=== PATIENT | male | born 1970 | race Caucasian/White ===

== ENCOUNTER 2021-02-13 07:15 | Outpatient (REF) | payer BC, SELFPAY ==
[2021-02-13 08:46] LABS: MANUAL DIFF FLAG NO
[2021-02-13 08:59] LABS: Basophils Percent Auto 0.7 % (0-2); Eosinophils Absolute Auto 0.2 X10*3/uL (0.0-0.4); Hematocrit 47.1 % (42-52); Hemoglobin 16.2 g/dl (14.0-18.0); Imm Gran Abs Auto 0.01 X10*3/uL (0.00-0.03); Imm Gran Pct Auto 0.2 % (0.0-0.4); Lymphocytes Absolute Auto 1.7 X10*3/uL (1.2-4.9); Lymphocytes Percent Auto 39.1 % (20-40); Mean Corpuscular HGB Conc 34.4 g/dl (31.0-36.0); Mean Corpuscular Hemoglobin 30.7 pg (27.0-33.0); Mean Corpuscular Volume 89.4 fL (80-98); Monocytes Absolute Auto 0.4 X10*3/uL (0.1-1.2); Monocytes Percent Auto 10.3 % (2-11); Neutrophils Percent Auto 45.7 % (45-73); Platelet Count 268 X10*3/uL (160-400); Red Blood Count 5.27 X10*6/uL (4.60-5.80); White Blood Count 4.3 X10*3/uL (4.8-10.8)
[2021-02-13 09:35] LABS: Creatinine Urine 205.16 mg/dL
[2021-02-13 09:43] LABS: Alanine Aminotransferase 31 U/L (0-40); Albumin Level 4.2 g/dL (3.5-5.0); Alkaline Phosphatase 79 U/L (39-117); Anion Gap 12 (12-20); Aspartate Amino Transferase 25 U/L (5-37); Bilirubin Total 0.7 mg/dL (0.0-1.0); Blood Urea Nitrogen 17 mg/dL (9-16); Calcium 9.4 mg/dL (8.4-10.2); Carbon Dioxide 26 mmol/L (22-29); Chloride 105 mmol/L (96-108); Cholesterol 199 mg/dL; Estimated Glomerular Filt Rate > 60; Glucose Fasting 96 mg/dL (60-99); HDL Cholesterol 90 mg/dL; LDL Cholesterol Calculated 99 mg/dl; Sodium 139 mmol/L (135-145); Total Protein 6.8 g/dL (6.5-8.0); Triglycerides 52 mg/dL
[2021-02-13 10:03] LABS: Estimated Average Glucose 223 mg/dL; Hemoglobin A1c % 9.4 %
== END 2021-02-13 07:16 | disposition home or self-care (01) ==
LOC: HO.LAB 07:15
PROVIDERS: PCP Internal Medicine Medical Oncology; Visit Provider Internal Medicine Medical Oncology
DX: Z00.00 Encounter for general adult medical examination without abnormal findings (principal); E11.9 Type 2 diabetes mellitus without complications
CPT/HCPCS: 36415; 80053; 80061; 82043; 83036; 85025

== ENCOUNTER 2021-07-15 08:14 | Day surgery (SDC) | payer BC, SELFPAY ==
[2021-07-09 11:29] VITALS: BMI 25.0
--- NOTE | 2021-07-12 09:54 | HO.ANESPROP2 ---
Documented by User: Kallie Aly NP 07/12/21 09:54 HPI - Anesthesia Eval Consult details Narrative: 51yo M for Colonoscopy [facility] Past Medical History Medical History (Updated 07/09/21 @ 11:29 by Deidra Stoddard RN) Arthritis COVID-19 vaccine series completed Diabetes Surgical History Surgical History (Updated 07/09/21 @ 11:20 by Deidra Stoddard RN) No pertinent past surgical history Social History Social History Are you a primary acute care nursing assistant to a significant other at home: No Do you presently have visiting nurse or other home services: No Patient Tobacco Use Status: Never used Tobacco Use of substances other than those prescribed or required for medical reasons: No Have you been hit, kicked, punched, or otherwise hurt by someone within the past year? If so, by whom?: No Are you DNR?: No Advance Directives: No Advance Directives Information Provided: Yes Advance Directives on File: No Recently lost weight without trying: No Eating poorly because of decreased appetite: No Nutrition Risks: No Nutritional Risk Poor oral hygiene: No Meds Allergies Allergy/AdvReac Type Severity Reaction Status Date / Time No Known Allergies Allergy Unverified 03/08/20 14:51 Home Medications Medication Instructions Recorded Confirmed Last Taken Type atorvastatin 10 mg tablet 1 tab PO DAILY 07/09/21 07/09/21 Unknown History insulin glargine 100 unit/mL (3 35 unit SUBCUT DAILY 07/09/21 07/09/21 Unknown History mL) subcutaneous pen (Lantus Solostar U-100 Insulin) Exam Exam Date and Time: July 12, 2021 0954 Height,Weight and Vital Signs: Height 6 ft 1 in Weight 86.183 kg Pertinent Lab Results Pertinent Lab Results: Laboratory Tests 02/13/21 02/13/21 07:30 07:30 WBC 4.3 L Hgb 16.2 Hct 47.1 Plt Count 268 Sodium 139 Potassium 4.0 Chloride 105 Carbon Dioxide 26 BUN 17 H Creatinine 0.82 Assessment and Plan Assessment Anesthesia Assessment: Chart Reviewed Documented by User: Camilo Johnson MD 07/15/21 08:44 PMF Past Medical History Medical History (Updated 07/09/21 @ 11:29 by Deidra Stoddard RN) Arthritis COVID-19 vaccine series completed Diabetes Family History Family history of problems with anesthesia: No Surgical History Surgical History (Updated 07/09/21 @ 11:20 by Deidra Stoddard RN) No pertinent past surgical history History of Problems with Anesthesia: No Social History Social History Are you a primary acute care nursing assistant to a significant other at home: No Do you presently have visiting nurse or other home services: No Patient Tobacco Use Status: Never used Tobacco Use of substances other than those prescribed or required for medical reasons: No Have you been hit, kicked, punched, or otherwise hurt by someone within the past year? If so, by whom?: No Are you DNR?: No Advance Directives: No Advance Directives Information Provided: Yes Advance Directives on File: No Recently lost weight without trying: No Eating poorly because of decreased appetite: No Nutrition Risks: No Nutritional Risk Poor oral hygiene: No Meds Allergies Allergy/AdvReac Type Severity Reaction Status Date / Time No Known Allergies Allergy Unverified 03/08/20 14:51 Home Medications Medication Instructions Recorded Confirmed Last Taken Type atorvastatin 10 mg tablet 1 tab PO DAILY 07/09/21 07/09/21 Unknown History insulin glargine 100 unit/mL (3 35 unit SUBCUT DAILY 07/09/21 07/09/21 Unknown History mL) subcutaneous pen (Lantus Solostar U-100 Insulin) Assessment and Plan Assessment Anesthesia Assessment: Anesthesia Plan Discussed Final Anesthetic Review Family History of Problems with Anesthesia: No History of Problems with Anesthesia: No NPO: Yes ASA Class: II Final Preanesthetic Review: No Changes in Pt Med Stat, Meds/Allgs Chart Reviewed, Consent Obtained/Reviewed and Anes Risks/Benef Reviewed Patient Risk: Intermediate Procedure Risk: Low Anesthetic Plan Anesthetic Plan: MAC: Disposition: Standard PACU
[2021-07-15 09:07] VITALS: BP 155/96; PULSE 89; RESP 16; TEMP 36.2; O2SAT 98
[2021-07-15] MEDS: Lactated Ringers 1,000 ML 100 ML IVCONT (09:14)
[2021-07-15 09:21] LABS: Glucose, Whole Blood 110 mg/dL (60-115)
[2021-07-15 10:36] VITALS: BP 119/68; PULSE 95; RESP 16; TEMP 36.2; O2SAT 94
--- NOTE | 2021-07-15 10:39 | P.BOP_ITS ---
Brief Operative Note Date of Service: 07/15/21 Pre-op diagnosis: Screening Post-op diagnosis: other (Colon polyp) Procedure: Colonoscopy to the cecum and TI with cold snare polypectomy Surgeon: Gary Campos Anesthesia: MAC Was an [employer] Stripper used for this Procedure?: No Estimated blood loss (mL): 2.0 Pathology: other (A. Transverse colon polyp) Condition: stable Disposition: PACU
--- NOTE | 2021-07-15 10:41 | PC.NURSE ---
dr mendoza at bedside
[2021-07-15 10:51] VITALS: BP 115/78; PULSE 90; RESP 18; TEMP 36.1; O2SAT 97
--- NOTE | 2021-07-15 11:26 | OP_ITS ---
SURGEON: aGry Campos MD INDICATIONS: The patient presents for evaluation of colorectal cancer screening. Full consent obtained from him for this, including risks of bleeding and perforation. PREOPERATIVE DIAGNOSIS: Colorectal cancer screening. POSTOPERATIVE DIAGNOSIS: PROCEDURE PERFORMED: ESTIMATED BLOOD LOSS: COMPLICATIONS: ANESTHESIA: Monitored anesthesia care. ASSISTANTS: SPECIMENS: PROCEDURE: Colonoscopy to cecum, terminal ileum with cold snare polypectomy. POSTOPERATIVE DIAGNOSES: Colorectal cancer screening, colon polyp, internal hemorrhoids. DESCRIPTION OF PROCEDURE: The patient was placed in the left lateral decubitus position. The digital rectal exam revealed no abnormalities. The Olympus video pediatric colonoscope was entered into the rectum and advanced easily to the cecum. Once in the cecum, I did identify normal-appearing cecal pouch with appendiceal orifice and a normal-appearing ileocecal valve. The terminal ileum was cannulated and appeared normal. Scope was withdrawn back in the colon. The entire cecum and ileocecal valve appeared normal. The scope was slowly withdrawn assessing all mucosal surfaces carefully. Preparation was excellent. In the transverse colon, there was a flat approximately 5 or 6 mm polyp, which was removed with a cold snare polypectomy and recovered by suction. The polypectomy site appeared clean, without any sign of residual polyp nor any significant bleeding. I did not visualize any other polyps, colitis, nor angiodysplasia. In the rectum, scope was retroflexed visualizing small internal hemorrhoids, but no other pathology. The rectal mucosa appeared normal. Scope was straightened and withdrawn from the patient. He tolerated the procedure well and was returned to the recovery area in stable condition. IMPRESSION: 1. Small colon polyp, status post removal with cold snare polypectomy. 2. Internal hemorrhoids. PLAN: The results of the pathology will be checked. If this is a tubular adenoma, I would recommend a followup colonoscopy in 5 years. If it is only hyperplastic, I would recommend a followup colonoscopy in 10 years. MD BAYLEE Baptiste/WINNIEL / [id number]
== END 2021-07-15 11:24 | disposition home or self-care (01) ==
PROVIDERS: PCP Internal Medicine Medical Oncology; Visit Provider Internal Medicine
PROC: 0DJD8ZZ Inspection of Lower Intestinal Tract, Via Natural or Artificial Opening Endoscopic (ICD-10-PCS; CPT 45378; principal; 2021-07-15 09:20)
DX: Z12.11 Encounter for screening for malignant neoplasm of colon (principal); D12.3 Benign neoplasm of transverse colon; K64.8 Other hemorrhoids; E11.9 Type 2 diabetes mellitus without complications; Z79.4 Long term (current) use of insulin
CPT/HCPCS: 45385; 82947; 88305; J2250

== ENCOUNTER 2023-02-16 10:34 | Outpatient (REF) | payer BC, SELFPAY ==
--- NOTE | ~2023-02-16 | XR_ITS ---
EXAMINATION: XR HAND AND WRIST, BILATERAL CLINICAL INFORMATION: Bilateral wrist pain. COMPARISON: None TECHNIQUE: 3 views each of bilateral hands and wrists. FINDINGS: LEFT HAND AND WRIST: Marked degenerative changes 1st carpometacarpal and STT joints. Subluxation of the 1st metacarpal relative to the scaphoid. Scattered erosive changes in the hand, particularly notable at the distal aspects of the middle phalanges. Scattered erosive/changes noted in the wrists. Mild degenerative changes with hypertrophic change particularly at the 3rd digit PIP and DIP joints. RIGHT HAND AND WRIST: Mwjacsie-il-yxfhak degenerative changes 1st carpometacarpal and STT joints. Subluxation of the1st metacarpal relative to the scaphoid. Mild degenerative changes with hypertrophic change particularly at the 3rd digit PIP and DIP joints. Scattered erosive changes in the hand, particularly notable at the distal aspects of the middle phalanges. Scattered erosive/changes noted in the wrists. XR/XR hand wrist LT IMPRESSION: LEFT HAND: Advanced degenerative changes in the bilateral 1st carpometacarpal and STT joints. BILATERAL HANDS AND WRISTS: 2. Scattered erosive changes in the bilateral hands, particularly notable at the distal aspects of the middle phalanges. Scattered erosive/changes noted in the bilateral wrists.
--- NOTE | ~2023-02-16 | XR_ITS ---
EXAMINATION: XR HAND AND WRIST, BILATERAL CLINICAL INFORMATION: Bilateral wrist pain. COMPARISON: None TECHNIQUE: 3 views each of bilateral hands and wrists. FINDINGS: LEFT HAND AND WRIST: Marked degenerative changes 1st carpometacarpal and STT joints. Subluxation of the 1st metacarpal relative to the scaphoid. Scattered erosive changes in the hand, particularly notable at the distal aspects of the middle phalanges. Scattered erosive/changes noted in the wrists. Mild degenerative changes with hypertrophic change particularly at the 3rd digit PIP and DIP joints. RIGHT HAND AND WRIST: Qrrzuhkn-bv-[id number] degenerative changes 1st carpometacarpal and STT joints. Subluxation of the1st metacarpal relative to the scaphoid. Mild degenerative changes with hypertrophic change particularly at the 3rd digit PIP and DIP joints. Scattered erosive changes in the hand, particularly notable at the distal aspects of the middle phalanges. Scattered erosive/changes noted in the wrists. XR/XR hand wrist RT IMPRESSION: LEFT HAND: Advanced degenerative changes in the bilateral 1st carpometacarpal and STT joints. BILATERAL HANDS AND WRISTS: 2. Scattered erosive changes in the bilateral hands, particularly notable at the distal aspects of the middle phalanges. Scattered erosive/changes noted in the bilateral wrists.
== END 2023-02-16 10:35 | disposition home or self-care (01) ==
LOC: HO.XRAY 10:34
PROVIDERS: PCP Internal Medicine Medical Oncology; Visit Provider Internal Medicine Medical Oncology
DX: M25.532 Pain in left wrist (principal); M25.531 Pain in right wrist; M79.641 Pain in right hand; M79.642 Pain in left hand
CPT/HCPCS: 73110; 73130

== ENCOUNTER 2023-03-04 15:30 | Outpatient (AMB) | payer BC, SELFPAY ==
--- NOTE | 2023-03-04 15:33 | MHC.OFFVIS ---
Intake Vital Signs 03/04/23 15:40 Weight 177 lb BP 165/91 H Blood Pressure Location Rt brachial Position Sitting Pulse 62 Intake Visit Reasons: right inguinal hernia Intake Note: This patient presents for an assessment for right inguinal hernia. Patient c/o; Onset 8-9 months, right groin region, reports bulge, reports occasional pain. Applications Packager Required: No Accompanied by: Self / Same As Patient Allergies No Known Allergies Allergy (Verified 03/04/23 15:41) Medication List - Last Reconciled 03/04/23 by Leonard Peterson MD atorvastatin 1 tab PO DAILY insulin glargine (Lantus Solostar U-100 Insulin) 35 units subcut DAILY HPI right inguinal hernia HPI Details 52-year-old male referred for right inguinal hernia. He has noticed this reducible mass on the right groin extending all the way to scrotum for about 9 months now. He says that this started when he had been coughing a lot due to a COVID infection last winter. He says that the mass is always reducible when he lies down in bed. He describes some occasional discomfort. [facility] Medical History (Updated 03/04/23 @ 15:50 by Leonard Peterson MD) Right inguinal hernia COVID-19 vaccine series completed Arthritis Diabetes Surgical History History of dental surgery No pertinent past surgical history Social History Are you a primary career development associate to a significant other at home: No Do you presently have visiting nurse or other home services: No Patient Tobacco Use Status: Never used Tobacco Review of Systems Const Denies chills and Denies fever(s) Card Denies chest pain, Denies dyspnea and Denies dyspnea on exertion Resp Denies cough, Denies dyspnea and Denies dyspnea on exertion GI Denies hematochezia and Denies change in bowel habits Denies hematuria and Denies difficulty urinating Musc Denies back pain and Denies limited range of motion Neuro Denies focal weakness and Denies convulsions Psych Denies depression and Denies mood swings Physical Exam Vital Signs: Last Vital Signs Pulse 62 03/04/23 15:40 BP 165/91 H 03/04/23 15:40 GI Other: Large reducible inguinal hernia that extends although the scrotum, nontender Assessment & Plan Assessment & Plan (1) Right inguinal hernia: Code(s): K40.90 - Unilateral inguinal hernia, without obstruction or gangrene, not specified as recurrent Plan: He has a large right inguinal hernia that is reducible. He does have some discomfort with this. I had a long discussion with him about the option of proceeding with repair. Explained the technique of repair with mesh. I reviewed the risks including but not limited to bleeding, infections, injury to the vas deferens and the testicle, recurrence, postop pain, as well as the benefits and alternatives. He does state that he already had a vasectomy in the past. He wants to proceed with repair. He also understands what to expect postoperatively. Coding Level of Care Code New Pt Level 3 (75750) Diagnoses Right inguinal hernia K40.90
[2023-03-04 15:40] VITALS: BP 165/91; PULSE 62
== END 2023-03-04 15:52 | disposition home or self-care (01) ==
PROVIDERS: PCP Internal Medicine Medical Oncology; Referring Provider Internal Medicine Medical Oncology; Visit Provider Surgery
DX: K40.90 Unilateral inguinal hernia, without obstruction or gangrene, not specified as recurrent (principal)
CPT/HCPCS: 99203

== ENCOUNTER → 2023-03-04 15:30 | Outpatient (BNVA) | payer BC, SELFPAY | PROVIDERS: PCP Internal Medicine Medical Oncology; Referring Provider Internal Medicine Medical Oncology; Visit Provider Surgery ==

== ENCOUNTER 2023-04-17 06:58 | Day surgery (SDC) | payer BC, SELFPAY ==
[2023-04-14 09:40] VITALS: BMI 24.7
--- NOTE | 2023-04-16 10:06 | HO.ANESPROP2 ---
Documented by User: Kallie Aly NP 04/16/23 10:06 HPI - Anesthesia Eval Consult details Narrative: 53yo M for Right Hernia Repair Inguinal PMFSH Active Problems Active Problems: All Active Problems (Updated 04/14/23 @ 09:39 by Deidra Stoddard RN) Right inguinal hernia (Acute) Past Medical History Medical History Elevated cholesterol Right inguinal hernia Arthritis Diabetes Family History Family history of problems with anesthesia: No Surgical History Surgical History H/O colonoscopy History of dental surgery History of Problems with Anesthesia: No Social History Social History Are you a primary manager urgent care to a significant other at home: No Do you presently have visiting nurse or other home services: No Patient Tobacco Use Status: Never used Tobacco Use of substances other than those prescribed or required for medical reasons: No Have you been hit, kicked, punched, or otherwise hurt by someone within the past year? If so, by whom?: No Are you DNR?: No Advance Directives: No Advance Directives Information Provided: Yes Advance Directives on File: No Recently lost weight without trying: No Eating poorly because of decreased appetite: No Nutrition Risks: No Nutritional Risk Meds Allergies Allergy/AdvReac Type Severity Reaction Status Date / Time No Known Allergies Allergy Verified 04/17/23 07:19 Home Medications Medication Instructions Recorded Confirmed Last Taken Type insulin glargine-yfgn 100 unit/mL 37 unit subcut QAM 04/14/23 04/17/23 04/17/23 05:30 History (3 mL) subcutaneous pen (Semglee 14 units (insulin glargine-yfgn) Pen) Exam Exam Date and Time: April 16, 2023 1006 Height,Weight and Vital Signs: Height 5 ft 11 in Weight 80.286 kg Assessment and Plan Assessment Anesthesia Assessment: Chart Reviewed Final Anesthetic Review Family History of Problems with Anesthesia: No History of Problems with Anesthesia: No Documented by User: Lissette Guaman MD 04/17/23 08:00 PMFSH Past Medical History Medical History Elevated cholesterol Right inguinal hernia Arthritis Diabetes Surgical History Surgical History H/O colonoscopy History of dental surgery Social History Social History Are you a primary manager urgent care to a significant other at home: No Do you presently have visiting nurse or other home services: No Patient Tobacco Use Status: Never used Tobacco Use of substances other than those prescribed or required for medical reasons: No Have you been hit, kicked, punched, or otherwise hurt by someone within the past year? If so, by whom?: No Are you DNR?: No Advance Directives: No Advance Directives Information Provided: Yes Advance Directives on File: No Recently lost weight without trying: No Eating poorly because of decreased appetite: No Nutrition Risks: No Nutritional Risk Meds Allergies Allergy/AdvReac Type Severity Reaction Status Date / Time No Known Allergies Allergy Verified 04/17/23 07:19 Home Medications Medication Instructions Recorded Confirmed Last Taken Type insulin glargine-yfgn 100 unit/mL 37 unit subcut QAM 04/14/23 04/17/23 04/17/23 05:30 History (3 mL) subcutaneous pen (Semglee 14 units (insulin glargine-yfgn) Pen) Exam Airway Mallampati Class: II TM Dist: >3cm Heart: rrr Lungs: cta Assessment and Plan Assessment Anesthesia Assessment: Anesthesia Plan Discussed Final Anesthetic Review NPO: Yes ASA Class: III Final Preanesthetic Review: No Changes in Pt Med Stat, Meds/Allgs Chart Reviewed, Consent Obtained/Reviewed and Anes Risks/Benef Reviewed Patient Risk: Intermediate Procedure Risk: Low Anesthetic Plan Anesthetic Plan: GA and MAC: Disposition: Standard PACU
[2023-04-17] VITALS (8 sets, daily range): BP systolic 122–162; BP diastolic 76–92; PULSE 58–77; RESP 12–18; TEMP 36.5–36.9; O2SAT 95–98
--- OUTSIDE RECORDS SUMMARY | 2023-04-17 06:59 | XMS_ITS | Patient Health Record ---
Author Name Unknown Organization [facility] Address [address] [place] [address] Care Team Providers Care Analysis Mgr Name Role Phone Gary Funez MD Primary Care Provider UnavailGary Hubbard Unavailable [phone] ALLERGIES No Known Allergies REASON FOR REFERRAL No Information MEDICATIONS Medication SIG (Take, Route, Frequency, Duration) Notes Start Date End Date Status Lantus SoloStar 100 UNIT/ML Subcutaneous for 30 Active IMMUNIZATIONS Vaccine Route Administration Date Status Comme nts Influenza Unknown 06/12/2021 Refused SOCIAL HISTORY Tobacco Use: Social History Observation Description Date Details (start date - stop date) Never Smoker NA - NA Sex Assigned At : Social History Observation Description Sex Assigned At Unknown Tobacco Use/Smoking Question Answer Notes Patient is a nonsmoker Alcohol Screen Question Answer Notes Did you have a drink contain ing alcohol in the past year? Yes How often did you have a dri nk containing alcohol in the past year? 2 to 4 times a month (2 points) How many drinks did you have on a typical day when you were drinking in the past year? 3 or 4 drinks (1 point) Points 3 Interpretation Negative PROBLEMS Problem Type ICD Code Onset Dates Problem Status W/U Status Risk SNOMED Code Notes Problem Encounter for screening for malignant neoplasm of colon (Z12.11) Active confirmed 239820534 Problem Preprocedural examination (Z01.818) Active confirmed [id number] PLAN OF TREATMENT Future Test Test Name Order Date COLONOSCOPY 06/12/2021 Insurance Providers Payer Name Payer Address Payer Phone Subscriber Number Group Number Insured Name Patient Relationship to Insured Coverage Start Date Coverage End Date [facility] [employer] [address] [place] [address] [phone] [id number] IRIS ROBERTS Self - patient is the insured MEDICAL (GENERAL) HISTORY Medical History History ICD Code IDDM Denies NE,CVA,Lung disease,renal disease Surgical History Surgery Date(Month/Year)
[2023-04-17 07:35] LABS: Glucose, Whole Blood 103 mg/dL (60-115)
[2023-04-17] MEDS: Lactated Ringers 1,000 ML 100 ML IVCONT (07:55)
--- NOTE | 2023-04-17 08:15 | MHC.SHP ---
Pre-Procedural Eval Section A Date of Service: 04/17/23 Section B Chief Complaint: Unilateral inguinal hernia, without obstruction Details of Present Illness: Has reducible right inguinal hernia Relevant Family History (Specify if Yes): No Relevant Social History: None Present Medications: see Short Stay Collaborative assessment Medical History: Significant History (Diabetes) Allergies: Allergies Allergy/AdvReac Type Severity Reaction Status Date / Time No Known Allergies Allergy Verified 04/17/23 07:19 Review of Systems Sugical H&P ROS: Negative: Constitution, Cardiovascular, Respiratory, Neurological, Psychiatric, Hem-Onc, Allergic/Immunologic, Gastrointestinal, Genitourinary, Musculoskeletal, Integumentary, Endocrine and Eyes/Ears/Nose/Throat Exam Surgical H&P Exam: Normal: HEENT, Normal: Heart, Normal: Lungs, Normal: Extremities, Normal: Skin and Normal: Neurological and Significant Findings: Abdomen (Right inguinal hernia, reducible) Plan Diagnosis/Plan: Unchanged I have reviewed the history and physical and performed a pertinent physical examination on my patient. No changes have occurred unless specified. Time Spent With Patient Time: Total time managing care of this patient today ____ minutes.
--- NOTE | 2023-04-17 09:41 | P.OP_ITS ---
Operative Note Operative Note Date of Service: 04/17/23 Narrative: Preop diagnosis: Right inguinal hernia Postop diagnosis right inguinal hernia, indirect, with a very large sac, markedly adherent to the vas deferens Procedure: Repair of right inguinal hernia with mesh Surgeon: Leonard Peterson MD purchasing administrative assistant: ZAYRA Lopez Patient is a 53 year male with a large reducible mass on the right groin consistent with an inguinal hernia. This often times extended all the way to the scrotum. He understood the technique of repair with mesh was aware of the risks, benefits, and alternatives. The patient was brought to the operating room. He was placed supine under general anesthesia via endotracheal tube. The right groin was prepped and draped in the usual sterile fashion. A surgical time-out was done the patient received cefazolin 2 g IV preoperatively. I infiltrated the planned line of incision with lidocaine 1%. I made a short incision on the skin along an imaginary line from the anterior superior iliac spine to the pubic ramus using blade 15. This carried down with electrocautery through the full-thickness of the skin subcutaneous fat down to the fascia. I carefully and bluntly dissected the external oblique aponeurosis expose the external ring. I incised the external oblique aponeurosis overlying the ring using blade 15 and this was extended inferomedially to connect with the external ring. The inguinal canal was therefore entered. I bluntly dissected the spermatic cord and its contents using my index finger until was able to pass a Prince drain around this. This Prince drain was used for traction. I identified the vas deferens. There was note of a very large sac adherent to this. This sac extended all the way distally. I attempted to completely reduce the sac and separate this from the vas deferens but this was very adherent so I decided to open the sac and excise part of this, with direct visualization from the inside of the sac to make sure that were not injuring the vas deferens and the accompanying vessels. I sent part of this excised sac for pathology. I was able to feel the internal ring. I positioned a medium-sized plug on the internal ring. I executed this with Prolene 2 sutures to the shelving edge of the inguinal ligament laterally and the internal oblique superiorly and medially using the inner leaves of the plug. I reinforced the floor of the canal with a keyhole mesh. The tails of the mesh were passed around the cord at the level of the internal ring. I secured the tails together with Prolene 2 sutures. I flattened the mesh. I secured this to the pubic ramus inferomedially, the internal oblique medially and superiorly as well as the shelving edge of the inguinal and laterally with Prolene 2 sutures. Observed for hemostasis. I had to cauterize the divided edges of the sac to achieve hemostasis. I irrigated. Once hemostasis was confirmed, I proceeded to reapposed the external oblique aponeurosis with a running Polysorb 2-0 stitch to re-create the external ring. The subcutaneous layer was reapposed with Polysorb 3-0 simple interrupted sutures. Skin closure was achi. eved with subcuticular running Polysorb 4-0 sutures. The incision was infiltrated with Marcaine 0.5% for postop analgesia. Dressings were applied. The procedure was completed. The patient tolerated procedure well. There were no immediate complications. Initial and final counts of sponges and instruments were correct. Estimated blood loss was about 20 cc The patient was extubated without difficulty and transferred to recovery room with stable vital signs.
[2023-04-17] MEDS: oxyCODONE HCl Immed Release 5 MG TABLET PO (10:39)
== END 2023-04-17 11:48 | disposition home or self-care (01) ==
PROVIDERS: PCP Internal Medicine Medical Oncology; Visit Provider Surgery
PROC: (CPT 49505; principal; 2023-04-17 08:30)
DX: K40.90 Unilateral inguinal hernia, without obstruction or gangrene, not specified as recurrent (principal); E11.9 Type 2 diabetes mellitus without complications; E78.00 Pure hypercholesterolemia, unspecified; Z79.4 Long term (current) use of insulin; Z79.899 Other long term (current) drug therapy; Z86.16 Personal history of COVID-19
CPT/HCPCS: 49505; 82947; 88302; C1781; J0131; J0690; J1100; J1885; J2250; J2371; J2405; J3010

== ENCOUNTER → 2023-04-17 06:58 | Outpatient (BNV) | payer BC, SELFPAY | PROVIDERS: PCP Internal Medicine Medical Oncology; Visit Provider Surgery | DX: K40.90 Unilateral inguinal hernia, without obstruction or gangrene, not specified as recurrent (principal) | CPT/HCPCS: 49505 ==

== ENCOUNTER 2023-04-30 08:52 | Outpatient (AMB) | payer BC, SELFPAY ==
--- NOTE | 2023-04-30 08:53 | MHC.OFFVIS ---
Intake Vital Signs 04/30/23 09:00 Weight 176 lb BP 162/92 H Blood Pressure Location Rt brachial Position Sitting Pulse 58 Intake Visit Reasons: S/P RIH w/mesh Intake Note: This patient presents for a post-op assessment status post right inguinal hernia repair. Patient c/o: reports no complaints at this time pertaining to surgery. Resource Management Specialist Required: No Accompanied by: Self / Same As Patient Allergies No Known Allergies Allergy (Verified 04/30/23 09:01) HPI S/P RIH w/mesh HPI Details He underwent repair of a large right inguinal hernia with mesh last 04/17/2023. He tolerated the procedure well . He currently denies significant complaints. [facility] Medical History Elevated cholesterol Right inguinal hernia Arthritis Diabetes Surgical History History of right inguinal hernia repair (~04/17/23) H/O colonoscopy History of dental surgery Social History Are you a primary care manager cna to a significant other at home: No Do you presently have visiting nurse or other home services: No Patient Tobacco Use Status: Never used Tobacco Review of Systems Const Denies chills and Denies fever(s) Card Denies chest pain, Denies dyspnea and Denies dyspnea on exertion Resp Denies cough, Denies dyspnea and Denies dyspnea on exertion GI Denies hematochezia and Denies change in bowel habits Denies hematuria and Denies difficulty urinating Musc Denies back pain and Denies limited range of motion Neuro Denies focal weakness and Denies convulsions Psych Denies depression and Denies mood swings Physical Exam Vital Signs: Last Vital Signs Pulse 58 04/30/23 09:00 BP 162/92 H 04/30/23 09:00 Const General: comfortable and no acute distress Resp Effort & Inspection: normal respiratory effort Cardio Rate: regular rate GI Other: right inguinal hernia repair site clean, lesion healing well, no evidence of infection, repair intact Palpation (GI): Soft to palpation, not firm and no guarding Assessment & Plan Assessment & Plan (1) Right inguinal hernia: Code(s): K40.90 - Unilateral inguinal hernia, without obstruction or gangrene, not specified as recurrent Plan: Status post repair of a right inguinal hernia with mesh. He had a large hernia sac which was partially removed. His incision is healing well. The repair site is intact. There is no evidence of any infection. I advised him to avoid any lifting more than 20 lb for at least 2 more weeks. Coding Level of Care Code Global (90681) Diagnoses Right inguinal hernia K40.90
[2023-04-30 09:00] VITALS: BP 162/92; PULSE 58
== END 2023-04-30 09:06 | disposition home or self-care (01) ==
PROVIDERS: PCP Internal Medicine Medical Oncology; Visit Provider Surgery
DX: K40.90 Unilateral inguinal hernia, without obstruction or gangrene, not specified as recurrent (principal)
CPT/HCPCS: 99024

== ENCOUNTER → 2023-04-30 08:52 | Outpatient (BNVA) | payer BC, SELFPAY | PROVIDERS: PCP Internal Medicine Medical Oncology; Visit Provider Surgery ==

== ENCOUNTER 2023-07-14 07:16 | Outpatient (REF) | payer BC, SELFPAY ==
[2023-07-14 07:37] LABS: MANUAL DIFF FLAG NO
[2023-07-14 07:53] LABS: Basophils Absolute Auto 0.1 X10*3/uL (0.0-0.2); Eosinophils Absolute Auto 0.2 X10*3/uL (0.0-0.4); Eosinophils Percent Auto 2.9 % (0-4); Hematocrit 46.2 % (42.0-52.0); Hemoglobin 16.2 g/dl (14.0-18.0); Imm Gran Abs Auto 0.01 X10*3/uL (0.00-0.03); Imm Gran Pct Auto 0.2 % (0.0-0.4); Lymphocytes Absolute Auto 1.5 X10*3/uL (1.2-4.9); Lymphocytes Percent Auto 29.7 % (20-40); Mean Corpuscular HGB Conc 35.1 g/dl (31.0-36.0); Mean Corpuscular Hemoglobin 30.6 pg (27.0-33.0); Mean Corpuscular Volume 87.2 fL (80.0-98.0); Mean Platelet Volume 9.2 fL (9.4-12.4); Monocytes Absolute Auto 0.5 X10*3/uL (0.1-1.2); Monocytes Percent Auto 10.5 % (2-11); Neutrophils Absolute Auto 2.9 x10*3/uL (2.0-8.3); Neutrophils Percent Auto 55.7 % (45-73); Platelet Count 232 X10*3/uL (160-400); Red Cell Distribution Width 11.9 % (11.0-16.0); White Blood Count 5.2 X10*3/uL (4.8-10.8)
[2023-07-14 08:18] LABS: Alanine Aminotransferase 31 U/L (0-40); Albumin Level 4.3 g/dL (3.5-5.0); Alkaline Phosphatase 75 U/L (39-117); Anion Gap 12 (12-20); Aspartate Amino Transferase 29 U/L (5-37); Bilirubin Total 0.7 mg/dL (0.0-1.0); Blood Urea Nitrogen 19 mg/dL (9-16); Calcium 9.7 mg/dL (8.4-10.2); Carbon Dioxide 27 mmol/L (22-29); Chloride 103 mmol/L (96-108); Cholesterol 213 mg/dL (<200); Estimated Glomerular Filt Rate > 60; Glucose Fasting 82 mg/dL (60-99); HDL Cholesterol 93 mg/dL (>40); LDL Cholesterol Calculated 112 mg/dL (<100); Potassium 3.9 mmol/L (3.3-5.1); Sodium 138 mmol/L (135-145); Total Protein 7.1 g/dL (6.5-8.0); Triglycerides 41 mg/dL (<150)
[2023-07-14 08:20] LABS: Creatinine Urine 19.94 mg/dL
[2023-07-14 08:41] LABS: Prostate Specific Antigen 0.59 ng/mL (<0.05-4.0)
[2023-07-14 12:05] LABS: Estimated Average Glucose 212 mg/dL
== END 2023-07-14 07:17 | disposition home or self-care (01) ==
LOC: HO.LAB 07:16
PROVIDERS: Visit Provider Internal Medicine Medical Oncology
DX: Z12.5 Encounter for screening for malignant neoplasm of prostate (principal); E11.9 Type 2 diabetes mellitus without complications; M25.531 Pain in right wrist; M25.532 Pain in left wrist; M79.641 Pain in right hand; M79.642 Pain in left hand
CPT/HCPCS: 36415; 80053; 80061; 82043; 82570; 83036; 84153; 85025

== ENCOUNTER 2023-11-26 07:17 | Outpatient (REF) | payer BC, SELFPAY ==
[2023-11-26 07:41] LABS: MANUAL DIFF FLAG NO
[2023-11-26 08:20] LABS: Basophils Absolute Auto 0.1 X10*3/uL (0.0-0.2); Basophils Percent Auto 1.2 % (0-2); Eosinophils Absolute Auto 0.2 X10*3/uL (0.0-0.4); Eosinophils Percent Auto 4.7 % (0-4); Hematocrit 45.7 % (42.0-52.0); Hemoglobin 15.8 g/dl (14.0-18.0); Lymphocytes Absolute Auto 1.5 X10*3/uL (1.2-4.9); Lymphocytes Percent Auto 38.4 % (20-40); Mean Corpuscular HGB Conc 34.6 g/dl (31.0-36.0); Mean Corpuscular Hemoglobin 30.9 pg (27.0-33.0); Mean Corpuscular Volume 89.3 fL (80.0-98.0); Mean Platelet Volume 9.5 fL (9.4-12.4); Monocytes Absolute Auto 0.5 X10*3/uL (0.1-1.2); Monocytes Percent Auto 13.2 % (2-11); Neutrophils Absolute Auto 1.7 x10*3/uL (2.0-8.3); Neutrophils Percent Auto 42.5 % (45-73); Platelet Count 253 X10*3/uL (160-400); Red Blood Count 5.12 X10*6/uL (4.60-5.80); Red Cell Distribution Width 12.4 % (11.0-16.0)
[2023-11-26 08:32] LABS: Estimated Average Glucose 217 mg/dL; Hemoglobin A1c % 9.2 % (<6.0)
[2023-11-26 09:10] LABS: Alanine Aminotransferase 30 U/L (0-40); Albumin Level 4.2 g/dL (3.5-5.0); Alkaline Phosphatase 82 U/L (39-117); Anion Gap 14 (12-20); Aspartate Amino Transferase 25 U/L (5-37); Bilirubin Total 0.7 mg/dL (0.0-1.0); Blood Urea Nitrogen 19 mg/dL (9-16); Calcium 9.4 mg/dL (8.4-10.2); Carbon Dioxide 26 mmol/L (22-29); Chloride 105 mmol/L (96-108); Cholesterol 223 mg/dL (<200); Estimated Glomerular Filt Rate > 60; Glucose Fasting 138 mg/dL (60-99); HDL Cholesterol 101 mg/dL (>40); LDL Cholesterol Calculated 114 mg/dL (<100); Potassium 4.7 mmol/L (3.3-5.1); Sodium 140 mmol/L (135-145); Triglycerides 41 mg/dL (<150)
[2023-11-26 09:15] LABS: Creatinine Urine 123.02 mg/dL; Microalbum/Creatinine Ratio Ur 18.6 ug/mg cr (<30)
== END 2023-11-26 07:18 | disposition home or self-care (01) ==
LOC: HO.LAB 07:17
PROVIDERS: PCP Internal Medicine Medical Oncology; Visit Provider Internal Medicine Medical Oncology
DX: Z12.5 Encounter for screening for malignant neoplasm of prostate (principal); Z79.4 Long term (current) use of insulin; M19.041 Primary osteoarthritis, right hand; M19.042 Primary osteoarthritis, left hand
CPT/HCPCS: 36415; 80053; 80061; 82043; 82570; 83036; 84153; 85025

== ENCOUNTER 2024-07-05 06:50 | Outpatient (REF) | payer BC, SELFPAY ==
--- OUTSIDE RECORDS SUMMARY | 2024-07-05 06:54 | XMS_ITS ---
Author Organization Gary Funez III, MD Address [address] [address] Care Team Providers Care Addiction Treatment Counselor Name Role Phone Gary Funez Primary Care Provider Allergies Allergen (clinical drug [...] test once a day 08/22/2016 Active Pen Victoria 29G X 12MM as directed use a [...] stop date) Never Smoker NA - NA Tobacco Use/Smoking Question Answer Notes Patient is a nonsmoker Additional Findings: Tobacco Non-User Aggressive non-smoker Problems Problem Type SNOMED Code ICD Code Onset Dates Problem Status W/U Status Risk Notes Problem [id number] Benign prostatic hyperplasia, unspecified whether lower urinary tract symptoms present (N40.0) Active confirmed Problem 277815476 Overweight (E66.3) Active confirmed He is very [...] Date Provider Diagnosis Gary Funez III, MD [address] [place] [address] [place] [address] 11/18/2023 Gary Funez Type 2 diabetes mellitus without complications E11.9 ; intermediate (current) use of insulin Z79.4 ; Primary [...] and microalbumin will be done tomorrow 11/18/2023 intermediate (current) use of insulin (ICD-10 - Z79.4) We have discussed how to adjust his insulin depending upon his testing. 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 11/18/2023 Primary osteoarthritis, left hand (ICD-10 - M19.042) He will continue with the gas and oil checker. He is able to conduct all of [...] tro test once a day 08/22/2016 Pen Victoria 29G X 12MM as directed use a [...] Months, Reason: OV review labs Provider Name:Gary Funez, 07/08/2024 09:00:00 AM, [address] [place] [address], [id number], Progress Notes * Lazaro ROBERTS CDOB: 1 (53 yo M)Acc No.[id number]:11/18/2023 Progress Notes Patient:?ToñaLazaro nweell Provider:?Gary Funez MD :1970???Age:53 Y???Sex:Male Armaan e:11/18/2023 Address:[address] [place], [place] [id number] Subjective: * Chief Complaints: * ???Insulin-dependent diabete s mellitusOsteoarthritisBenign prostatic hypertrophy * HPI: ???COVID-19 Screening:? He returns for a scheduled visit to manage his arthritis and diabetes. He is currently taking 37 units of Lantus insulin. He is testing his fasting glucose levels may have been below 150. He has been to the gas and oil checker. X-rays of his hand show erosive arthritis. He is taking meloxicam when necessary.His renal function will be monitored. His blood work will be drawn this week. ?Questions?Have you experienced fever, chills, cough, sore throat, shortness of breath, difficulty breathing, muscle aches, loss of taste or smell??No ?Have you been exposed to the virus within the last 10 days??No ?Have you travelled internationally in the last 10 days??No ?Have you been exposed to COVID-19 in the past??Yes * ROS:?General/Constitutional:?pain?Both hands and fingers, otherwise only normal aches and pains.?Chills?denies.?Fatigue?admits.?Fever?denies.?ENT:?Decreased hearing?denies.?Respiratory:?Cough?denies.?Cardiovascular:?Chest pain with exertion?denies.?Dyspnea on exertion?denies.?Shortness of breath?denies.?Gastrointestinal:?Constipation?occasional.?Decreased appetite?denies.?Diarrhea?denies.?Heartburn?denies.?Nausea?denies.?Rectal bleeding?denies.?Vomiting?denies.?Hematology:?bruising?denies.?petechiae?denies.?Swollen glands?none have been noted.?Genitourinary:?Frequent urination?once a night.?Musculoskeletal:?Muscle aches?denies.?Painful joints?denies.?Sciatica?denies.?Weakness?denies.?Skin:?Itching?denies.?Rash?denies.?Skin lesion(s)?denies.?Neurologic:?Difficulty speaking?denies.?Dizziness?denies.?Headache?denies.?Low back pain?denies.?Psychiatric:?Depressed mood?denies.? * Medical History:? * Surgical History:?colonoscop y, Beth MENDEZ, one tubular adenoma 07/15/2021 * Hospitalization/Major Diagno stic Procedure:?Denies Past Hospitalization * Family History:?Father: dece ased, pancreatic cancer, diagnosed with Cancer.?Mother: , diagnosed with Cancer.?1 sister(s) - healthy. 2 son(s) - healthy. .? His mother from bladder cancer. * Social History:?Tobacco Use:?Tobacco Use/Smoking?Patient is a?nonsmoker ?Additional Findings: Tobacco Non-User?Aggressive non-smoker ???He is working. He is to a nurse and they have children. He lives in [place], [place]. * Medications:?TakingLantus So loStar 100 UNIT/ML Solution Pen-injector 40 units Subcutaneous once a dayBasaglar KwikPen 100 UNIT/ML Solution Pen-injector as directed Subcutaneous once a dayBD Pen Needle Ainsley U/F 32G X 4 MM Miscellaneous as directed use as directed test once a dayAccu-Chek Asya Plus - Strip as directed In Vitro test once a dayPen Victoria 29G X 12MM Miscellaneous as directed use as directed use once a dayMeloxicam 15 MG Tablet TAKE 1 TABLET BY MOUTH EVERY DAY Oral Medication List reviewed and reconciled with the patientTaking Lantus SoloStar 100 UNIT/ML Solution Pen-injector 40 units Subcutaneous once a dayTaking Basaglar KwikPen 100 UNIT/ML Solution Pen-injector as directed Subcutaneous once a dayTaking BD Pen Needle Ainsley U/F 32G X 4 MM Miscellaneous as directed use as directed test once a dayTaking Accu-Chek Asya Plus - Strip as directed In Vitro test once a dayTaking Pen Victoria 29G X 12MM Miscellaneous as directed use as directed use once a dayTaking Meloxicam 15 MG Tablet TAKE 1 TABLET BY MOUTH EVERY DAY Oral Medication List reviewed and reconciled with the patient * Allergies:?No Known Drug All ergyno[Allergies Verified] Objective: * Vitals:?Ht: 71, Wt: 181, BMI :25.24, BP: 158/100, HR: 61, Temp: 97.8, Wt-k.1. * Examination: ???General Examination: ?GENERAL APPEARANCE:?pleasant, well nourished, well developed, in no acute distress, calm and relaxed , overweight , man.?HEAD:?atraumatic, normocephalic.?EYES:?eomi, perrla, anicteric, conjugate.?EARS:?normal.?NOSE:?septum intact.?ORAL CAVITY:?normal, unremarkable.?NECK/THYROID:?no jugular venous distention, no carotid bruit, thyroid normal.?LYMPH NODES:?no enlarged lymph nodes,spleen normal.?SKIN:?no suspicious lesions, anicteric.?HEART:?no clicks, gallops, murmurs, or rubs, regular rhythm, S1, S2 normal, no s3, or vascular bruits.?LUNGS:?clear to auscultation .?BREASTS:??no masses palpable bilaterally.?ABDOMEN:?bowel sounds normal, no ascites, no organomegaly, no mass, repaired right inguinal hernia, , overweight.?RECTAL EXAM:?not examined.?MUSCULOSKELETAL:?extremities unremarkable, no clubbing, cyanosis or edema, The joints of the hands and fingers.? Normal but are painful to range of motion.?PERIPHERAL PULSES:?normal.?NEUROLOGIC:?alert and oriented, cranial nerves 2-12 grossly intact, deep tendon reflexes 2+ symmetrical, motor strength normal upper and lower extremities, sensory exam intact.?PSYCH:?alert, oriented.? Assessment: * Assessment: 1.?Type 2 diabetes mellitus without complications - E11.9, He has been compliant with his insulin therapy. Conference of blood work with a hemoglobin A1c fasting lipids fasting glucose and microalbumin will be done tomorrow?2.?intermediate (current) use of insulin - Z79.4, We have discussed how to adjust his insulin depending upon his testing.?3.?Primary osteoarthritis, right hand - M19.041, He will continue with the gas and oil checker.?4.?Primary osteoarthritis, left hand - M19.042, He will continue with the gas and oil checker. He is able to conduct all of the activities of daily living.?5.?Overweight - E66.3, He is very slightly overweight. We have discussed the effect of this on glycemic control. I recommended he stabilize his weight at this level and gradually redduce it with a target BMI of 23.? 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 Continue Lantus SoloStar Solution Pen-injector, 100 UNIT/ML, 40 units, Subcutaneous, once a day;?Continue Basaglar KwikPen Solution Pen-injector, 100 UNIT/ML, as directed, Subcutaneous, once a day;?Continue BD Pen Needle Ainsley U/F Miscellaneous, 32G X 4 MM, as directed, use as directed, test once a day;?Continue Accu-Chek Asya Plus Strip, -, as directed, In Vitro, test once a day; Continue Pen Victoria Miscellaneous, 29G X 12MM, as directed, use as directed, use once a day;?Continue Meloxicam Tablet, 15 MG, TAKE 1 TABLET BY MOUTH EVERY DAY, Oral.?? * Procedure Codes:? * Preventive Medicine:? ??Counseling:?Care goal follow-up plan:?Counseling for abnormal BMI given?Yes ?Above Normal BMI Follow-up?Dietary management education, guidance, and counseling, Dietary needs education, Exercise promotion: strength training, Exercise promotion: stretching, Feeding regime, Giving encouragement to exercise, Lifestyle education regarding diet, Nutrition / feeding management, Nutrition therapy, Prescribed activity/exercise education, Prescribed diet education, Prescribed dietary intake, Special diet education, Weight monitoring , Intervention, Order not done: Medical or Other reason not done ??DM Care Plan:?Patient Lifestyle Goals?Patient wants to be able to manage diabetes without too much effort.?Treatment Goals?HbA1C < 7.0, Blood Sugars less than < 115.?Barriers?no barriers.?Self-Managment Goals?Work on weight loss, with a goal of losing 1 lb per week, Take blood sugars twice daily and keep a log. Bring log in to next appointment, Increase exercise to 3 times a week for 30 mins, Stop drinking juice and/or soda, replace with more water.? * Follow Up:?4 Months (Reason: OV review labs ) * Images: * Sign off status: Completed true * Provider:?Gary Funez MD Date:?10/21 Generated for Rodríguez jorgensen/Chris/eTransmitting on:?07/05/2024 06:54 AM EST History and Physical Notes * HPI (History of Present Illness) Category Sub-Category Detail Notes COVID-19 Screening Questions Have you had any new onset fever, chills, cough, congestion, sore throat, shortness of breath, muscle aches?: No Have you been exposed to the virus withi n the last 10 days?: No Have you travelled internationally in last 10 days?: No Have you been [...]
--- OUTSIDE RECORDS SUMMARY | 2024-07-05 06:54 | XMS_ITS | Patient Health Record ---
Author Organization Gary Funez III, MD Address [address] [place] [address] Care Team Providers Care Team Assembler Name Role Phone Gary Funez Primary Care Provider [phone] Allergies Allergen (clinical drug ingredient) Drug/Non Drug Allergy documented on EMR Reaction Allergy Type Onset Date Status No Known Drug Allergy Unknown Drug Allergy Active Results Component Value Reference Range Notes Complete Blood Count Auto Di ff Reviewed date:07/15/2023 02:40:54 PM Interpretation: Performing Lab:[facility], [address] [place] [phone] Notes/Report: White Blood Count 5.2 4.8-10.8 X10*3/uL Red Blood Count 5.30 4.60-5.80 X10*6/uL Hemoglobin 16.2 14.0-18.0 g/dl Hematocrit 46.2 42.0-52.0 % Mean Corpuscular Volume 87.2 80.0-98.0 fL Mean Corpuscular Hemoglobin 30.6 27.0-33.0 pg Mean Corpuscular HGB Conc 35.1 31.0-36.0 g/dl Red Cell Distribution Width 11.9 11.0-16.0 % Platelet Count 232 160-400 X10*3/uL Mean Platelet Volume 9.2 9.4-12.4 fL Neutrophils Percent Auto 55.7 45-73 % Imm Gran Pct Auto 0.2 0.0-0.4 % Lymphocytes Percent Auto 29.7 20-40 % Monocytes Percent Auto 10.5 2-11 % Eosinophils Percent Auto 2.9 0-4 % Basophils Percent Auto 1.0 0-2 % NRBC Pct Auto 0.0 0.0-0.2 /100WBC Neutrophils Absolute Auto 2.9 2.0-8.3 x10*3/u L Imm Gran Abs Auto 0.01 0.00-0.03 X10*3/uL Lymphocytes Absolute Auto 1.5 1.2-4.9 X10*3/u L Monocytes Absolute Auto 0.5 0.1-1.2 X10*3/uL Eosinophils Absolute Auto 0.2 0.0-0.4 X10*3/u L Basophils Absolute Auto 0.1 0.0-0.2 X10*3/uL NRBC Abs Auto 0.000 0.0-0.012 X10*3/uL Comprehensive [place]. Panel Fa Reviewed date:07/15/2023 02:40:54 PM Interpretation: Performing Lab:[address] [phone] Notes/Report: Sodium 138 135-145 mmol/L Potassium 3.9 3.3-5.1 mmol/L Chloride 103 96-108 mmol/L Carbon Dioxide 27 22-29 mmol/L Anion Gap 12 12-20 Blood Urea Nitrogen 19 9-16 mg/dL Creatinine 0.72 0.5-1.4 mg/dL Estimated Glomerular Filt Rate > 60 NOTE: For -Jamaican individuals, multiply the result by 1.210. Chronic Kidney Disease: Estimated GFR < 60 mL/min/1.73m2 Severe Kidney Disease: Estimated GFR < 15 mL/min/1.73m2 Glucose Fasting 82 60-99 mg/dL Calcium 9.7 8.4-10.2 mg/dL Bilirubin Total 0.7 0.0-1.0 mg/dL Aspartate Amino Transferase 29 5-37 U/L Alanine Aminotransferase 31 0-40 U/L Total Protein 7.1 6.5-8.0 g/dL Albumin Level 4.3 3.5-5.0 g/dL Alkaline Phosphatase 75 39-117 U/L Lipid Panel Reviewed date:07/15/2023 02:40:54 PM Interpretation: Performing Lab:[facility], [address] [place] [phone] Notes/Report: Triglycerides 41 <150 mg/dL Desirable Triglyceride: less than 150 mg/dL Borderline High Triglyceride 150-199 mg/dL High Triglyceride: 200-499 mg/dL Very High Triglyceride: greater than or equal to 5OO mg/dL Cholesterol 213 <200 mg/dL Desirable Cholesterol: less than 200 mg/dL Borderline High Cholesterol: 200-239 mg/dL High Cholesterol: greater than 239 mg/dL LDL Cholesterol Calculated 112 <100 mg/dL Desirable LDL: less than 100 mg/dL Near Optimal/Above Optimal LDL: 110-129 mg/dL Borderline High LDL: 130-159 mg/dL High LDL: 160-189 mg/dL Very High LDL: greater than or equal to 190 mg/dL HDL Cholesterol 93 >40 mg/dL Desirable HDL: greater than 40 mg/dL Note: This HDL assay may give artificially low results in patients with liver disease. Prostate Specific Antigen Reviewed date:07/15/2023 02:40:54 PM Interpretation: Performing Lab:[facility], [address] [place] [phone] Notes/Report: Prostate Specific Antigen 0.59 <0.05-4.0 ng/mL PSA methodology: Rader Alinity i Chemiluminescent Microparticle Immunoassay (CMIA) Microalbumin, Random Reviewed date:07/15/2023 02:40:54 PM Interpretation: Performing Lab:[facility], [address] [place] [phone] Notes/Report: Creatinine Urine 19.94 Microalbumin Urine 5.0 Microalbum/Creatinine Ratio Ur 25.0 <30 ug/mg cr Albumin/Creatinine Ratio Reference Ranges: Normal: < 30 ug/mg creatinine Microalbuminuria: 30 - 300 ug/mg creatinine Clinical Albuminuria: > 300 ug/mg creatinine Hemoglobin A1c Reviewed date:07/15/2023 02:40:54 PM Interpretation: Performing Lab:[facility], [address] [place] [phone] Notes/Report: Hemoglobin A1c % 9.0 <6.0 % Hemoglobin A1C Reference Range Adults: 4.8 - 6.0 % Non diabetic: < 6.0 % Goal: < 7.0 % Additional Action Suggested: > 8.0 % Note: Hemoglobin A1c results are invalid for patients with abnormal amounts of HbF. Blood transfusions may impact the HbA1c concentration in the patient sample. Estimated Average Glucose 212 eAG = Estimated average glucose which is %A1C expressed as average glucose, using the formula of the Y1E-Wuphzir Average Glucose study (ADAG), Diabetes Care, Vol.31,#8, Jan. 2007 Diabetic Eye Exam Reviewed date:08/17/2023 11:27:05 AM Interpretation:undefined Performing Lab: Notes/Report: undefined Complete Blood Count Auto Di ff Reviewed date:06/13/2024 12:08:00 PM Interpretation: Performing Lab:[facility], [address] [place] [phone] Notes/Report: White Blood Count 4.0 4.8-10.8 X10*3/uL Red Blood Count 5.12 4.60-5.80 X10*6/uL Hemoglobin 15.8 14.0-18.0 g/dl Hematocrit 45.7 42.0-52.0 % Mean Corpuscular Volume 89.3 80.0-98.0 fL Mean Corpuscular Hemoglobin 30.9 27.0-33.0 pg Mean Corpuscular HGB Conc 34.6 31.0-36.0 g/dl Red Cell Distribution Width 12.4 11.0-16.0 % Platelet Count 253 160-400 X10*3/uL Mean Platelet Volume 9.5 9.4-12.4 fL Neutrophils Percent Auto 42.5 45-73 % Imm Gran Pct Auto 0.0 0.0-0.4 % Lymphocytes Percent Auto 38.4 20-40 % Monocytes Percent Auto 13.2 2-11 % Eosinophils Percent Auto 4.7 0-4 % Basophils Percent Auto 1.2 0-2 % NRBC Pct Auto 0.0 0.0-0.2 /100WBC Neutrophils Absolute Auto 1.7 2.0-8.3 x10*3/u L Imm Gran Abs Auto 0.00 0.00-0.03 X10*3/uL Lymphocytes Absolute Auto 1.5 1.2-4.9 X10*3/u L Monocytes Absolute Auto 0.5 0.1-1.2 X10*3/uL Eosinophils Absolute Auto 0.2 0.0-0.4 X10*3/u L Basophils Absolute Auto 0.1 0.0-0.2 X10*3/uL NRBC Abs Auto 0.000 0.0-0.012 X10*3/uL Comprehensive [place]. Panel Fa st Reviewed date:06/13/2024 12:08:01 PM Interpretation: Performing Lab:[facility], [address] [place] [phone] Notes/Report: Sodium 140 135-145 mmol/L Potassium 4.7 3.3-5.1 mmol/L Chloride 105 96-108 mmol/L Carbon Dioxide 26 22-29 mmol/L Anion Gap 14 12-20 Blood Urea Nitrogen 19 9-16 mg/dL Creatinine 0.77 0.5-1.4 mg/dL Estimated Glomerular Filt Rate > 60 NOTE: For -Jamaican individuals, multiply the result by 1.210. Chronic Kidney Disease: Estimated GFR < 60 mL/min/1.73m2 Severe Kidney Disease: Estimated GFR < 15 mL/min/1.73m2 Glucose Fasting 138 60-99 mg/dL A fasting glucose of 126 mg/dl or greater on more than one occasion is considered diagnostic of diabetes. Calcium 9.4 8.4-10.2 mg/dL Bilirubin Total 0.7 0.0-1.0 mg/dL Aspartate Amino Transferase 25 5-37 U/L Alanine Aminotransferase 30 0-40 U/L Total Protein 7.0 6.5-8.0 g/dL Albumin Level 4.2 3.5-5.0 g/dL Alkaline Phosphatase 82 39-117 U/L Lipid Panel Reviewed date:06/13/2024 12:08:01 PM Interpretation: Performing Lab:[facility], [address] [place] [phone] Notes/Report: Triglycerides 41 <150 mg/dL Desirable Triglyceride: less than 150 mg/dL Borderline High Triglyceride 150-199 mg/dL High Triglyceride: 200-499 mg/dL Very High Triglyceride: greater than or equal to 5OO mg/dL Cholesterol 223 <200 mg/dL Desirable Cholesterol: less than 200 mg/dL Borderline High Cholesterol: 200-239 mg/dL High Cholesterol: greater than 239 mg/dL LDL Cholesterol Calculated 114 <100 mg/dL Desirable LDL: less than 100 mg/dL Near Optimal/Above Optimal LDL: 110-129 mg/dL Borderline High LDL: 130-159 mg/dL High LDL: 160-189 mg/dL Very High LDL: greater than or equal to 190 mg/dL HDL Cholesterol 101 >40 mg/dL Desirable HDL: greater than 40 mg/dL Note: This HDL assay may give artificially low results in patients with liver disease. Prostate Specific Antigen Reviewed date:06/13/2024 12:08:01 PM Interpretation: Performing Lab:[facility], [address] [place] [phone] Notes/Report: Prostate Specific Antigen 0.80 <0.05-4.0 ng/mL PSA methodology: Rader Alinity i Chemiluminescent Microparticle Immunoassay (CMIA) Microalbumin, Random Reviewed date:06/13/2024 12:08:01 PM Interpretation: Performing Lab:[facility], [address] [place] [phone] Notes/Report: Creatinine Urine 123.02 Microalbumin Urine 23.0 Microalbum/Creatinine Ratio Ur 18.6 <30 ug/mg cr Albumin/Creatinine Ratio Reference Ranges: Normal: < 30 ug/mg creatinine Microalbuminuria: 30 - 300 ug/mg creatinine Clinical Albuminuria: > 300 ug/mg creatinine Hemoglobin A1c Reviewed date:06/13/2024 12:08:01 PM Interpretation: Performing Lab:[address] [phone] Notes/Report: Hemoglobin A1c % 9.2 <6.0 % Hemoglobin A1C Reference Range Adults: 4.8 - 6.0 % Non diabetic: < 6.0 % Goal: < 7.0 % Additional Action Suggested: > 8.0 % Note: Hemoglobin A1c results are invalid for patients with abnormal amounts of HbF. Blood transfusions may impact the HbA1c concentration in the patient sample. Estimated Average Glucose 217 eAG = Estimated average glucose which is %A1C expressed as average glucose, using the formula of the N7Y-Kblfeio Average Glucose study (ADAG), Diabetes Care, Vol.31,#8, Jan. 2007 Reason For Referral Reason diabetic eye care Diagnosis 1 Type 2 diabetes pepe itus without complications (E11.9) Referral Organization Gary Funez III, MD Referring Provider First Name Gary Referring Provider Last Name Armin Referring Provider Speciality Internal M edicine [facility] oc[facility] Referred Provider Specialty Exceptional Children Teacher General Notes Sharmila Anderson CMA 10/2023 11:45:45 AM EST > ref/demo/progress note faxed to [facility] , Sharmila Anderson CMA 07/30/2023 02:26:58 PM EST > Called [facility] made patient appt for 08/06/2023 at 3pm info called and mailed to pt Referral Priority Routine Referral Appointment Date 08/06/2023 Reason diabetes eye care Diagnosis 1 Type 2 diabetes pepe itus without complications (E11.9) Diagnosis 2 buttermaker (current) use of insulin (Z79.4) Referral Organization Gary Funez III, MD Referring Provider First Name Gary Referring Provider Last Name Armin Referring Provider Speciality Internal M edicine Referred Provider Bijan Medel Referred Provider Specialty Ophthalmolog y General Notes MonicaSharmila WELLNESS COORDINATOR 01/22 09:11:09 AM EDT > ref/demo/ progress note faxed to Dr Danielle pt stated he has seen him in the past for diabetic eye care, Sharmila Anderson [facility] 03/05/2023 03:04:52 PM EDT > I called Dr Danielle office made patient appt for Thursday06/29/2024 at 3:20pm information mailed to pt Referral Priority Routine Referral Appointment Date 06/29/2024 Medications Medication SIG (Take, Route, Frequency, Duration) Notes Start Date End Date Status Basaglar KwikPen 100 UNIT/ML as directed Subcutaneous once a day 07/10/2023 Active BD Pen Needle Ainsley U/F 32G X 4 MM as directed use as directed test once a day 08/22/2016 Active Accu-Chek Asya Plus - as directed In Vi tro test once a day 08/22/2016 Active Pen [place] 29G X 12MM as directed use a s directed use once a day 01/30/2015 Active Lantus SoloStar 100 UNIT/ML ADMINISTER 40 UNITS UNDER THE SKIN EVERY DAY for 28 Active Meloxicam 15 MG TAKE 1 TABLET BY YVAN TH EVERY DAY Oral Active Social History Tobacco Use: Social History Observation Description Date Details (start date - stop date) Never Smoker NA - NA Tobacco Use/Smoking Question Answer Notes Patient is a nonsmoker Additional Findings: Tobacco Non-User Aggressive non-smoker Problems Problem Type SNOMED Code ICD Code Onset Dates Problem Status W/U Status Risk Notes Problem 774230868 Overweight (E66.3) Active confirmed He is very slightly overweight. We have discussed the effect of this on glycemic control. I recommended he stabilize his weight at this level and gradually redduce it with a target BMI of 23. Problem 77098042 Type 2 diabetes mellitus without complications (E11.9) Active confirmed He has been compliant with his insulin therapy. Conference of blood work with a hemoglobin A1c fasting lipids fasting glucose and microalbumin will be done tomorrow Problem 130295482 Sebaceous cyst (L72.3) Active confirmed The cyst has been removed and is currently well-healed Problem 169792390056029 Primary osteoarthritis, right hand (M19.041) Active confirmed He will continue with the rheumatologis t. Problem 829578026964443 Primary osteoarthritis, left hand (M19.042) Active confirmed He will continue with the rheumatologis t. He is able to conduct all of the activities of daily living. Problem 982789031 [facility] (current) use of insulin (Z79.4) Active confirmed We have discussed how to adjust his insulin depending upon his testing. Problem 997110545 Benign prostatic hyperplasia, unspecified whether lower urinary tract symptoms present (N40.0) Active confirmed Vital Signs Heart Rate 61 /min 11/18/2023 Temperature 97.8 degrees Fahrenheit 11/18/2023 Blood pressure diastolic 100 mm Hg 11/18/2023 Height 71 in 11/18/2023 Blood pressure systolic 158 mm Hg 11/18/2023 Weight 181 lbs 11/18/2023 BMI 25.24 kg/m2 11/18/2023 Encounters Encounter Location Date Provider Diagnosis Gary Funez III, MD [address] [place] [address] [place] [address] 07/22/2023 Gary Funez Type 2 diabetes mellitus without complications E11.9 ; buttermaker (current) use of insulin Z79.4 ; Primary osteoarthritis, right hand M19.041 and Primary osteoarthritis, left hand M19.042 Gary Funez III, MD [address] [place] [address] [place] [address] 11/18/2023 Gary Funez Type 2 diabetes mellitus without complications E11.9 ; [facility] (current) use of insulin Z79.4 ; Primary osteoarthritis, right hand M19.041 ; Primary osteoarthritis, left hand M19.042 and Overweight E66.3 Gary Funez III, MD [address] [place] [address] [place] [address] 07/10/2023 Gary Funez III, MD [address] [place] [address] [place] [address] 07/10/2023 Gary Funez III, MD [address] [place] [address] [address] [place] [address] 07/13/2023 Gary Funez Assessments Encounter Date Diagnosis (ICD Code) Assessment Notes Treatment Notes Treatment Clinical Notes 07/22/2023 Type 2 diabetes mellitus without complications (ICD-10 - E11.9) His weight is in the normal range. We discussed his diet at length. His hemoglobin A1c has dropped from 9.4-9.0. He was given a 2 unit increase in Lantus and instructions on how to raise it. He will test every other day. A follow-up appointment was arranged. [facility] pt will call to see if they can put him on cancellation list or give him sooner appt. pt advised he does not check blood sugars four times a day so is unable to get Vicente device covered by his insurance . Pt does not want to obtain this device at this time 07/22/2023 buttermaker (current) use of insulin (ICD-10 - Z79.4) He is using his Lantus insulin appropriately. 11/18/2023 Type 2 diabetes mellitus without complications (ICD-10 - E11.9) He has been compliant with his insulin therapy. Conference of blood work with a hemoglobin A1c fasting lipids fasting glucose and microalbumin will be done tomorrow 11/18/2023 buttermaker (current) use of insulin (ICD-10 - Z79.4) We have discussed how to adjust his insulin depending upon his testing. 07/22/2023 Primary osteoarthritis, right hand (ICD-10 - M19.041) He has been referred to a human resources generalist. He has a strong family history of this. 11/18/2023 Primary osteoarthritis, right hand (ICD-10 - M19.041) He will continue with the human resources generalist. 07/22/2023 Primary osteoarthritis, left hand (ICD-10 - M19.042) He has pain at work where he works with his hands. 11/18/2023 Primary osteoarthritis, left hand (ICD-10 - M19.042) He will continue with the human resources generalist. He is able to conduct all of the activities of daily living. 11/18/2023 Overweight (ICD-10 - E66.3) He is very slightly overweight. We have discussed the effect of this on glycemic control. I recommended he stabilize his weight at this level and gradually redduce it with a target BMI of 23. Plan Of Treatment Pending Test Test Name Order Date PROFILE, FASTING (COMPREHENSIVE METABOLI C) 02/16/2023 PROFILE, FASTING (COMPREHENSIVE METABOLI C) 12/26/2016 PROFILE, FASTING (COMPREHENSIVE METABOLI C) 11/18/2023 PROFILE, FASTING (COMPREHENSIVE METABOLI C) 01/07/2021 PROFILE, FASTING (COMPREHENSIVE METABOLI C) 07/22/2023 PROFILE, FASTING (COMPREHENSIVE METABOLI C) 06/27/2021 PROFILE, FASTING (COMPREHENSIVE METABOLI C) 02/22/2021 HEMOGLOBIN A1C (GLYCOHEMOGLOBIN) 024 HEMOGLOBIN A1C (GLYCOHEMOGLOBIN) 022 HEMOGLOBIN A1C (GLYCOHEMOGLOBIN) 021 HEMOGLOBIN A1C (GLYCOHEMOGLOBIN) 023 HEMOGLOBIN A1C (GLYCOHEMOGLOBIN) 021 LIPID PANEL 01/07/2021 LIPID PANEL 06/27/2021 LIPID PANEL 02/22/2021 LIPID PANEL 02/16/2023 LIPID PANEL 12/26/2016 PSA, TOTAL 02/16/2023 PSA, TOTAL 11/18/2023 PSA, TOTAL+FREE 06/27/2021 MICROALBUMIN, RANDOM 11/18/2023 MICROALBUMIN, RANDOM 01/07/2021 MICROALBUMIN, RANDOM 02/22/2021 MICROALBUMIN, RANDOM 02/16/2023 CBC w DIFF 11/18/2023 CBC w DIFF 07/22/2023 CBC w DIFF 01/07/2021 CBC w DIFF 06/27/2021 CBC w DIFF 02/22/2021 CBC w DIFF 12/26/2016 CBC w DIFF 02/16/2023 XR CHEST 2 VIEW PA & LAT 06/27/2021 XR HAND LT 02/16/2023 XR HAND RT 02/16/2023 XR WRIST LT 02/16/2023 XR WRIST RT 02/16/2023 Lipid Panel 11/18/2023 Lipid Panel 07/22/2023 Hemoglobin A1c 11/18/2023 Next Appt Details Provider Name:Gary Funez, 07/08/2024 09:00:00 AM, [address] [place] [address] [address], [address], [place], [address], Insurance Providers Payer Name Payer Address Payer Phone Subscriber Number Group Number Insured Name Patient Relationship to Insured Coverage Start Date Coverage End Date [facility] [address] [place], [place] [id number] Lazaro Roberts Self - patient is the insured Medical (General) History Medical History History ICD Code type II diabetes 2021 [facility] tubular adenoma Surgical History Surgery Date(Month/Year) colonoscopy, [facility], [place], one tubular nestor noma 07/15/2021
--- OUTSIDE RECORDS SUMMARY | 2024-07-05 06:54 | XMS_ITS | Patient Health Record ---
Author Organization [facility] Address [address] [place] [address] Care Team Providers Care Police Communications Operator Name Role Phone Gary Funez MD Primary Care Provider Unavailab Gary Zabala Unavailable [phone] ALLERGIES No Known Allergies REASON FOR REFERRAL [...] malignant neoplasm of colon (Z12.11) Active confirmed [id number] Problem Preprocedural examination (Z01.818) Active confirmed [id number] PLAN OF TREATMENT Future Test Test Name Order Date COLONOSCOPY 06/12/2021 Insurance Providers Payer Name Payer Address Payer Phone Subscriber Number Group Number Insured Name Patient Relationship to Insured Coverage Start Date Coverage End Date [facility] [employer]AL CLAIMS [address] [place] [address] [id number] ARMANDO IRIS Self - patient is the insured MEDICAL (GENERAL) HISTORY Medical History History ICD Code IDDM Denies [place],CVA,Lung disease,renal disease Surgical History Surgery Date(Month/Year)
--- OUTSIDE RECORDS SUMMARY | 2024-07-05 06:54 | XMS_ITS ---
Author Organization Gary Funez III, MD Address [address] [address] Care Team Providers Care Teachers' Assistant Name Role Phone Gary Funez Primary Care Provider Allergies Allergen (clinical drug ingredient) Drug/Non Drug Allergy documented on EMR Reaction Allergy Type Onset Date Status No Known Drug Allergy Unknown Drug Allergy Active Reason For Referral Reason diabetic eye care Diagnosis 1 Type 2 diabetes pepe itus without complications (E11.9) Referral Organization Gary Funez III, MD Referring Provider First Name Gary Referring Provider Last Name Armin Referring Provider Speciality Internal M edicine Referred Provider Braxton Mejia ociatedemetri Referred Provider Specialty Forestry Hunter General Notes Sharmila Anderson CMA 10/2023 11:45:45 AM EST > ref/demo/progress note faxed to [facility] Monica Suzanne CMA 07/30/2023 02:26:58 PM EST > Called [facility] made patient appt for 08/06/2023 at 3pm info called and mailed to pt Referral Priority Routine Referral Appointment Date 08/06/2023 REASON FOR VISIT Insulinn-dependent diabetes, Arthritis of the hands and fingers Medications Medication SIG (Take, Route, Frequency, Duration) Notes Start Date End Date Status Pen Arapahoe 29G X 12MM as directed use a s directed use once a day 01/30/2015 Active Accu-Chek Asya Plus - as directed In Vi tro test once a day 08/22/2016 Active BD Pen Needle Ainsley U/F 32G X 4 MM as directed use as directed test once a day 08/22/2016 Active Lantus SoloStar 100 UNIT/ML 40 units Subcutaneous once a day 07/10/2023 Active Basaglar KwikPen 100 UNIT/ML as directed Subcutaneous once a day 07/10/2023 Active Social History Tobacco Use: Social History Observation Description Date Details (start date - stop date) Never Smoker NA - NA Tobacco Use/Smoking Question Answer Notes Patient is a nonsmoker Additional Findings: Tobacco Non-User Aggressive non-smoker Vital Signs Temperature 98.2 degrees Fahrenheit 07/22/19 24 Blood pressure systolic 146 mm Hg 07/22/19 24 Blood pressure diastolic 90 mm Hg 024 Heart Rate 73 /min 07/22/2023 Height 71 in 07/22/2023 Weight 177 lbs 07/22/2023 BMI 24.68 kg/m2 07/22/2023 Encounters Encounter Location Date Provider Diagnosis Gary Funez III, MD [address] [place] [address] [place] [address] 07/22/2023 Gary Funez Type 2 diabetes mellitus without complications E11.9 ; acetone button paster (current) use of insulin Z79.4 ; Primary osteoarthritis, right hand M19.041 and Primary osteoarthritis, left hand M19.042 Assessments Encounter Date Diagnosis (ICD Code) Assessment [...] obtain this device at this time 07/22/2023 acetone button paster (current) use of insulin (ICD-10 - Z79.4) He is using his Lantus insulin appropriately. 07/22/2023 Primary osteoarthritis, right hand (ICD-10 - M19.041) He has been referred to a shoe planner. He has a strong family history of this. 07/22/2023 Primary osteoarthritis, left hand (ICD-10 - M19.042) He has pain at work where he works with his hands. Plan Of Treatment Medication Medication Name Sig Start Date Stop Date Notes Pen Arapahoe 29G X 12MM as directed use a s directed use once a day 01/30/2015 Accu-Chek Asya Plus - as directed In Vi tro test once a day 08/22/2016 BD Pen Needle Ainsley U/F 32G X 4 MM as directed use as directed test once a day 08/22/2016 Lantus SoloStar 100 UNIT/ML 40 units Sub cutaneous once a day 07/10/2023 Basaglar KwikPen 100 UNIT/ML as directed Subcutaneous once a day 07/10/2023 Treatment Notes Assessment Notes Type 2 diabetes mellitus wit hout complications Pt [facility] pt will call to see if they can put him on cancellation list or give him sooner appt. pt advised he does not check blood sugars four times a day so is unable to get Vicente device covered by his insurance . Pt does not want to obtain this device at this time Pending Test Test Name Order Date PROFILE, FASTING (COMPREHENSIVE METABOLI C) 07/22/2023 HEMOGLOBIN A1C (GLYCOHEMOGLOBIN) 024 CBC w DIFF 07/22/2023 Lipid Panel 07/22/2023 Referrals Referral Date Details 07/22/2023 07/22/2023, diabetic eye care , [facility] Appt Details Follow Up: 4 Months, Reason: ov review labs Provider Name:Gary Funez, 07/08/2024 09:00:00 AM, [address] [place] [address] , [facility] [address], [place], [address], Progress Notes * Lazaro ROBERTS CDOB: [birth year] (53 yo M)Acc No.[id number]:07/22/2023 Progress Notes Patient:?Lazaro Roberts Provider:?Gary Funez MD :1970???Age:53 Y???Sex:Male Armaan e:07/22/2023 Address:[address] [place] [address], [id number] Subjective: * Chief Complaints: * ???Insulinn-dependent diabet esArthritis of the hands and fingers * HPI: ???COVID-19 Screening:?Questions?Have you experienced fever, chills, cough, sore throat, shortness of breath, difficulty breathing, muscle aches, loss of taste or smell??No ?Have you been exposed to the virus within the last 10 days??No ?Have you travelled internationally in the last 10 days??No ?Have you been exposed to COVID-19 in the past??Yes ? He returns to the office for management of his diabetes and arthritis. He says he had a colonoscopy last July with negative results. X-rays of his hands recently showed moderately severe arthritis in the bones of his hands and fingers. He is working with pain. I have discussed this with him and referred him to a shoe planner for definitive diagnosis and treatment. He says his sister has significant arthritis in the upper extremities as did his mother. Blood work was reviewed with him today. He is using his insulin appropriately. No change in his medications was needed. * ROS:?General/Constitutional:?pain?Fingers hands and wrists of both arms, otherwise only normal aches and pains.?Chills?denies.?Fatigue?admits.?Fever?denies.?ENT:?Decreased hearing?denies.?Respiratory:?Cough?denies.?Cardiovascular:?Chest pain with exertion?denies.?Dyspnea on exertion?denies.?Shortness of breath?denies.?Gastrointestinal:?Constipation?occasional.?Decreased appetite?denies.?Diarrhea?denies.?Heartburn?denies.?Nausea?denies.?Rectal bleeding?denies.?Vomiting?denies.?Hematology:?bruising?denies.?petechiae?denies.?Swollen glands?none have been noted.?Genitourinary:?Frequent urination?once a night.?Musculoskeletal:?Muscle aches?denies.?Painful joints?Hands wrists and fingers.?Sciatica?denies.?Weakness?denies.?Skin:?Itching?denies.?Rash?denies.?Skin lesion(s)?denies.?Neurologic:?Difficulty speaking?denies.?Dizziness?denies.?Headache?denies.?Low back pain?denies.?Psychiatric:?Depressed mood?denies.? * Medical History:? * Surgical History:?colonoscop y, HM, [facility], one tubular adenoma 07/15/2021 * Hospitalization/Major [...] and they have children. He lives in [place], [place]. * Medications:?TakingBD Pen Ne edle Ainsley U/F 32G X 4 MM Miscellaneous as directed use as directed test once a dayAccu-Chek Asya Plus - Strip as directed In Vitro test once a dayPen Arapahoe 29G X 12MM Miscellaneous as directed use as directed use once a dayLantus SoloStar 100 UNIT/ML Solution Pen-injector 40 units Subcutaneous once a dayBasaglar KwikPen 100 UNIT/ML Solution Pen-injector as directed Subcutaneous once a dayTaking BD Pen Needle Ainsley U/F 32G X 4 MM Miscellaneous as directed use as directed test once a dayTaking Accu-Chek Asya Plus - Strip as directed In Vitro test once a dayTaking Pen Arapahoe 29G X 12MM Miscellaneous as directed use as directed use once a dayTaking Lantus SoloStar 100 UNIT/ML Solution Pen-injector 40 units Subcutaneous once a dayTaking Basaglar KwikPen 100 UNIT/ML Solution Pen-injector as directed Subcutaneous once a dayDiscontinuedSemglee (yfgn) 100 UNIT/ML Solution Pen- injector 40 units as directed every day Subcutaneous once a dayDoxycycline Hyclate 100 MG Tablet 1 tablet Orally Twice a dayAtorvastatin Calcium 10 MG Tablet 1 tablet Orally Once a dayLantus SoloStar 100 UNIT/ML Solution 0.02 ml Subcutaneous 34 units once a dayLantus SoloStar 100 UNIT/ML Solution 0.02 ml Subcutaneous 34 units once a dayLantus SoloStar 100 UNIT/ML Solution 0.02 ml Subcutaneous 22 unitsOnce a dayLantus SoloStar 100 UNIT/ML Solution Pen-injector INJECT 34 UNITS UNDER THE SKIN ONCE A DAY Medication List reviewed and reconciled with the patientDiscontinued Semglee (yfgn) 100 UNIT/ML Solution Pen-injector 40 units as directed every day Subcutaneous once a dayDiscontinued Doxycycline Hyclate 100 MG Tablet 1 tablet Orally Twice a dayDiscontinued Atorvastatin Calcium 10 MG Tablet 1 tablet Orally Once a dayDiscontinued Lantus SoloStar 100 UNIT/ML Solution 0.02 ml Subcutaneous 34 units once a dayDiscontinued Lantus SoloStar 100 UNIT/ML Solution 0.02 ml Subcutaneous 34 units once a dayDiscontinued Lantus SoloStar 100 UNIT/ML Solution 0.02 ml Subcutaneous 22 unitsOnce a dayDiscontinued Lantus SoloStar 100 UNIT/ML Solution Pen-injector INJECT 34 UNITS UNDER THE SKIN ONCE A DAY Medication List reviewed and reconciled with the patient * Allergies:?No Known Drug All ergyno[Allergies Verified] Objective: * Vitals:?Ht: 71, Wt: 177, BMI :24.68, BP: 146/90, HR: 73, Temp: 98.2, Wt-k.29. * ???Past Orders: Lab:Microalbumin, Random * Order Date 07/14/2023 02/13/2021 Creatinine Urine 19.94 (Ref Range: mg/dL) 205.16 (Ref Range: mg/dL) Microalbumin Urine 5.0 (Ref Range: mg/L) 35.0 (Ref Range: mg/L) Microalbum Creatinine Ratio Ur 25.0 (Ref Range: <30 ug/mg cr) 17.0 (Ref Range: ug/mg cr) * Lab:Hemoglobin A1c * Order Date 07/14/2023 02/13/2021 Hemoglobin A1c % 9.0?H (Ref Range: <6.0 %) 9.4 (Ref Range: %) Estimated Average Glucose 212 (Ref Range: mg/dL) 223 (Ref Range: mg/dL) * Lab:Comprehensive [place]. Pane l Fast * Order Date 07/14/2023 02/13/2021 Sodium 138 (Ref Range: 135-145 mmol/L) 139 (Ref Range: 135-145 mmol/L) Bilirubin Total 0.7 (Ref Range: 0.0-1.0 mg/dL) 0.7 (Ref Range: 0.0-1.0 mg/dL) Aspartate Amino Transferase 29 (Ref Range: 5-37 U/L) 25 (Ref Range: 5-37 U/L) Alanine Aminotransferase 31 (Ref Range: 0-40 U/L) 31 (Ref Range: 0-40 U/L) Total Protein 7.1 (Ref Range: 6.5-8.0 g/dL) 6.8 (Ref Range: 6.5-8.0 g/dL) Albumin Level 4.3 (Ref Range: 3.5-5.0 g/dL) 4.2 (Ref Range: 3.5-5.0 g/dL) Alkaline Phosphatase 75 (Ref Range: 39-117 U/L) 79 (Ref Range: 39-117 U/L) Potassium 3.9 (Ref Range: 3.3-5.1 mmol/L) 4.0 (Ref Range: 3.3-5.1 mmol/L) Chloride 103 (Ref Range: 96-108 mmol/L) 105 (Ref Range: 96-108 mmol/L) Carbon Dioxide 27 (Ref Range: 22-29 mmol/L) 26 (Ref Range: 22-29 mmol/L) Anion Gap 12 (Ref Range: 12-20) 12 (Ref Range: 12-20) Blood Urea Nitrogen 19?H (Ref Range: 9-16 mg/dL) 17?H (Ref Range: 9-16 mg/dL) Creatinine 0.72 (Ref Range: 0.5-1.4 mg/dL) 0.82 (Ref Range: 0.5-1.4 mg/dL) Estimated Glomerular Filt Rate > 60 > 60 Glucose Fasting 82 (Ref Range: 60-99 mg/dL) 96 (Ref Range: 60-99 mg/dL) Calcium 9.7 (Ref Range: 8.4-10.2 mg/dL) 9.4 (Ref Range: 8.4-10.2 mg/dL) * Lab:Lipid Panel * Order Date 07/14/2023 02/13/2021 Triglycerides 41 (Ref Range: <150 mg/dL) 52 (Ref Range: mg/dL) Cholesterol 213?H (Ref Range: <200 mg/dL) 199 (Ref Range: mg/dL) LDL Cholesterol Calculated 112?H (Ref Range: <100 mg/dL) 99 (Ref Range: mg/dl) HDL Cholesterol 93 (Ref Range: >40 mg/dL) 90 (Ref Range: mg/dL) ???Lab:Prostate Specific Antigen (Order Date - 07/14/2023) (Collection Date - 07/14/2023)?ValueReference Range?Prostate Specific Antigen0.59 <0.05-4.0 - ng/mL * Lab:Complete Blood Count Aut o Diff * Order Date 07/14/2023 02/13/2021 White Blood Count 5.2 (Ref Range: 4.8-10.8 X10*3/uL) 4.3?L (Ref Range: 4.8-10.8 X10*3/uL) Red Blood Count 5.30 (Ref Range: 4.60-5.80 X10*6/uL) 5.27 (Ref Range: 4.60-5.80 X10*6/uL) Hemoglobin 16.2 (Ref Range: 14.0-18.0 g/dl) 16.2 (Ref Range: 14.0-18.0 g/dl) Hematocrit 46.2 (Ref Range: 42.0-52.0 %) 47.1 (Ref Range: 42-52 %) Mean Corpuscular Volume 87.2 (Ref Range: 80.0-98.0 fL) 89.4 (Ref Range: 80-98 fL) Mean Corpuscular Hemoglobin 30.6 (Ref Range: 27.0-33.0 pg) 30.7 (Ref Range: 27.0-33.0 pg) Mean Corpuscular HGB Conc 35.1 (Ref Range: 31.0-36.0 g/dl) 34.4 (Ref Range: 31.0-36.0 g/dl) Red Cell Distribution Width 11.9 (Ref Range: 11.0-16.0 %) 12.0 (Ref Range: 11.0-16.0 %) Platelet Count 232 (Ref Range: 160-400 X10*3/uL) 268 (Ref Range: 160-400 X10*3/uL) Mean Platelet Volume 9.2?L (Ref Range: 9.4-12.4 fL) 10.0 (Ref Range: 9.4-12.4 fL) Neutrophils Percent Auto 55.7 (Ref Range: 45-73 %) 45.7 (Ref Range: 45-73 %) Imm Gran Pct Auto 0.2 (Ref Range: 0.0-0.4 %) 0.2 (Ref Range: 0.0-0.4 %) Lymphocytes Percent Auto 29.7 (Ref Range: 20-40 %) 39.1 (Ref Range: 20-40 %) Monocytes Percent Auto 10.5 (Ref Range: 2-11 %) 10.3 (Ref Range: 2-11 %) Eosinophils Percent Auto 2.9 (Ref Range: 0-4 %) 4.0 (Ref Range: 0-4 %) Basophils Percent Auto 1.0 (Ref Range: 0-2 %) 0.7 (Ref Range: 0-2 %) NRBC Pct Auto 0.0 (Ref Range: 0.0-0.2 /100WBC) 0.0 (Ref Range: 0.0-0.2 /100WBC) Neutrophils Absolute Auto 2.9 (Ref Range: 2.0-8.3 x10*3/uL) 2.0 (Ref Range: 2.0-8.3 X10*3/uL) Imm Gran Abs Auto 0.01 (Ref Range: 0.00-0.03 X10*3/uL) 0.01 (Ref Range: 0.00-0.03 X10*3/uL) Lymphocytes Absolute Auto 1.5 (Ref Range: 1.2-4.9 X10*3/uL) 1.7 (Ref Range: 1.2-4.9 X10*3/uL) Monocytes Absolute Auto 0.5 (Ref Range: 0.1-1.2 X10*3/uL) 0.4 (Ref Range: 0.1-1.2 X10*3/uL) Eosinophils Absolute Auto 0.2 (Ref Range: 0.0-0.4 X10*3/uL) 0.2 (Ref Range: 0.0-0.4 X10*3/uL) Basophils Absolute Auto 0.1 (Ref Range: 0.0-0.2 X10*3/uL) 0.0 (Ref Range: 0.0-0.2 X10*3/uL) NRBC Abs Auto 0.000 (Ref Range: 0.0-0.012 X10*3/uL) 0.000 (Ref Range: 0.0-0.012 X10*3/uL) * Examination: ???General Examination: ?GENERAL APPEARANCE:?pleasant, well nourished, well developed, in no acute distress, calm and relaxed , man.?HEAD:?atraumatic, normocephalic.?EYES:?eomi, perrla, anicteric, conjugate.?EARS:?normal.?NOSE:?septum intact.?ORAL CAVITY:?normal, unremarkable.?NECK/THYROID:?no jugular venous distention, no carotid bruit, thyroid normal.?LYMPH NODES:?no enlarged lymph nodes,spleen normal.?SKIN:?no suspicious lesions, anicteric.?HEART:?no clicks, gallops, murmurs, or rubs, regular rhythm, S1, S2 normal, no s3, or vascular bruits.?LUNGS:?clear to auscultation .?BREASTS:??no masses palpable bilaterally.?ABDOMEN:?bowel sounds normal, no ascites, no organomegaly, no mass.?RECTAL EXAM:?not examinedDue to colonoscopy within the last 11 months..?MUSCULOSKELETAL:?extremities unremarkable, no clubbing, cyanosis or edema, appearance of hands is unremarkable but painful to range of motion.?PERIPHERAL PULSES:?normal.?NEUROLOGIC:?alert and oriented, cranial nerves 2-12 grossly intact, deep tendon reflexes 2+ symmetrical, motor strength normal upper and lower extremities, sensory exam intact.?PSYCH:?alert, oriented.? Assessment: * Assessment: 1.?Type 2 diabetes mellitus without complications - E11.9, His weight is in the normal range. We discussed his diet at length. His hemoglobin A1c has dropped from 9.4-9.0. He was given a 2 unit increase in Lantus and instructions on how to raise it. He will test every other day. A follow-up appointment was arranged.?2.?USP (current) use of insulin - Z79.4, He is using his Lantus insulin appropriately.?3.?Primary osteoarthritis, right hand - M19.041, He has been referred to a shoe planner. He has a strong family history of this.?4.?Primary osteoarthritis, left hand - M19.042, He has pain at work where he works with his hands.? Plan: * Treatment: 2.?acetone button paster (current) use o f insulin?LAB: PROFILE, FASTING (COMPREHENSIVE METABOLIC) ?LAB: HEMOGLOBIN A1C (GLYCOHEMOGLOBIN) ?LAB: CBC w DIFF ?LAB: Lipid Panel 3.?Primary osteoarthritis, r ight hand?LAB: PROFILE, FASTING (COMPREHENSIVE METABOLIC) ?LAB: HEMOGLOBIN A1C (GLYCOHEMOGLOBIN) ?LAB: CBC w DIFF ?LAB: Lipid Panel 4.?Primary osteoarthritis, l eft hand?LAB: PROFILE, FASTING (COMPREHENSIVE METABOLIC) ?LAB: HEMOGLOBIN A1C (GLYCOHEMOGLOBIN) ?LAB: CBC w DIFF ?LAB: Lipid Panel 5.?Others? Continue Lantus SoloStar Solution Pen-injector, 100 UNIT/ML, 40 units, Subcutaneous, once a day;?Continue Basaglar KwikPen Solution Pen-injector, 100 UNIT/ML, as directed, Subcutaneous, once a day;?Continue BD Pen Needle Ainsley U/F Miscellaneous, 32G X 4 MM, as directed, use as directed, test once a day;?Continue Accu-Chek Asya Plus Strip, -, as directed, In Vitro, test once a day; Continue Pen Arapahoe Miscellaneous, 29G X 12MM, as directed, use as directed, use once a day.?? * Procedure Codes:? * Preventive Medicine:? ??DM Care Plan:?Patient Lifestyle Goals?Patient wants to be able to manage diabetes without too much effort.?Treatment Goals?HbA1C < 7.0, Blood Sugars less than < 115.?Barriers?no barriers.?Self-Managment Goals?Take blood sugars twice daily and keep a log. Bring log in to next appointment, Increase exercise to 3 times a week for 30 mins, Stop drinking juice and/or soda, replace with more water.? * Follow Up:?4 Months (Reason: ov review labs ) * Images: * Sign off status: Completed true * Provider:?Gary Funez MD Date:?06/24 Generated for Rodríguez jorgensen/Chris/Carlos on:?07/05/2024 06:54 AM EST History and Physical Notes * HPI (History of Present Illness) Category Sub-Category Detail Notes COVID-19 Screening Questions Have you had any new onset fever, chills, cough, congestion, sore throat, shortness of breath, muscle aches?: No Have you been exposed to the virus withi n the last 10 days?: No Have you travelled internationally in e last 10 days?: No Have you been exposed to COVID-19 in the past?: Yes Examination Category Sub-Category Detail Notes General Examination GENERAL APPEARANCE: pleasant , well nourished, well developed, in no acute distress, calm and relaxed , man HEAD: atraumatic, normocep halic EYES: eomi, perrla, anicte cameron, conjugate EARS: normal NOSE: septum intact NECK/THYROID: no jugular venous di stention, no carotid bruit, thyroid normal HEART: no clicks, gallops, murmurs, or rubs, regular rhythm, S1, S2 normal, no s3, or vascular bruits LUNGS: clear to auscultatio n ABDOMEN: bowel sounds normal, no ascites, no organomegaly, no mass NEUROLOGIC: alert and oriented, cranial nerves 2-12 grossly intact, deep tendon reflexes 2+ symmetrical, motor strength normal upper and lower extremities, sensory exam intact SKIN: no suspicious lesion s, anicteric PERIPHERAL PULSES: normal BREASTS: no masses palpable b ilaterally MUSCULOSKELETAL: extremities unremark able, no clubbing, cyanosis or edema, appearance of hands is unremarkable but painful to range of motion LYMPH NODES: no enlarged lymph no roberto carlos,spleen normal RECTAL EXAM: not examinedDue to c olonoscopy within the last 11 months. PSYCH: alert, oriented ORAL CAVITY: normal, unremarkable Consultation Request Notes Referral Date Referring Provider Referred Provider Not parisa 07/22/2023 Gary F[facility]
[2024-07-05 07:11] LABS: MANUAL DIFF FLAG NO
[2024-07-05 08:14] LABS: Estimated Average Glucose 220 mg/dL; Hemoglobin A1C 321.2661 umol/L; Hemoglobin A1c % 9.3 % (<6.0); Total Hemoglobin (HGBA1C) 4115.7356 umol/L
[2024-07-05 08:23] LABS: Basophils Absolute Auto 0.1 X10*3/uL (0.0-0.2); Basophils Percent Auto 0.8 % (0-2); Eosinophils Absolute Auto 0.2 X10*3/uL (0.0-0.4); Hematocrit 44.8 % (42.0-52.0); Hemoglobin 15.7 g/dl (14.0-18.0); Imm Gran Abs Auto 0.01 X10*3/uL (0.00-0.03); Imm Gran Pct Auto 0.2 % (0.0-0.4); Lymphocytes Absolute Auto 1.5 X10*3/uL (1.2-4.9); Lymphocytes Percent Auto 24.6 % (20-40); Mean Corpuscular Hemoglobin 30.3 pg (27.0-33.0); Mean Corpuscular Volume 86.5 fL (80.0-98.0); Mean Platelet Volume 9.9 fL (9.4-12.4); Monocytes Absolute Auto 0.6 X10*3/uL (0.1-1.2); Monocytes Percent Auto 10.6 % (2-11); Neutrophils Absolute Auto 3.6 x10*3/uL (2.0-8.3); Neutrophils Percent Auto 59.8 % (45-73); Platelet Count 293 X10*3/uL (160-400); Red Blood Count 5.18 X10*6/uL (4.60-5.80); Red Cell Distribution Width 12.2 % (11.0-16.0)
[2024-07-05 09:09] LABS: Albumin Level 4.4 g/dL (3.5-5.0); Alkaline Phosphatase 91 U/L (39-117); Anion Gap 12 (12-20); Aspartate Amino Transferase 47 U/L (5-37); Bilirubin Total 0.5 mg/dL (0.0-1.0); Blood Urea Nitrogen 17 mg/dL (9-16); Calcium 9.5 mg/dL (8.4-10.2); Carbon Dioxide 26 mmol/L (22-29); Chloride 106 mmol/L (96-108); Cholesterol 231 mg/dL (<200); Estimated Glomerular Filt Rate > 60; Glucose Fasting 67 mg/dL (60-99); HDL Cholesterol 102 mg/dL (>40); LDL Cholesterol Calculated 120 mg/dL (<100); Potassium 3.7 mmol/L (3.3-5.1); Sodium 140 mmol/L (135-145); Total Protein 7.2 g/dL (6.5-8.0); Triglycerides 45 mg/dL (<150)
[2024-07-05 09:28] LABS: Creatinine Urine 93.87 mg/dL; Microalbum/Creatinine Ratio Ur 24.5 ug/mg cr (<30)
[2024-07-05 10:31] LABS: Alanine Aminotransferase 40 U/L (0-40)
== END 2024-07-05 06:51 | disposition home or self-care (01) ==
LOC: HO.LAB 06:50
PROVIDERS: PCP Internal Medicine Medical Oncology; Visit Provider Internal Medicine Medical Oncology
DX: E11.9 Type 2 diabetes mellitus without complications (principal); Z79.4 Long term (current) use of insulin; M19.041 Primary osteoarthritis, right hand; M19.042 Primary osteoarthritis, left hand
CPT/HCPCS: 36415; 80053; 80061; 82043; 82570; 83036; 85025

== ENCOUNTER 2024-12-01 06:58 | Outpatient (REF) | payer BC, SELFPAY ==
--- NOTE | ~2024-12-01 | XR_ITS ---
CLINICAL HISTORY: CHEST PAIN, SOB --- Additional Notes or Special Instructions: O 2 view chest x-ray Comparison: None Findings: Clear lungs. Heart size is normal. No acute fracture. IMPRESSION: 1. No acute findings. This document has been electronically signed by: Higinio Alvarez MD on 12/02/2024 09:01:29
[2024-12-01 07:07] LABS: MANUAL DIFF FLAG NO
[2024-12-01 07:22] LABS: Basophils Absolute Auto 0.1 X10*3/uL (0.0-0.2); Basophils Percent Auto 1.2 % (0-2); Eosinophils Absolute Auto 0.3 X10*3/uL (0.0-0.4); Eosinophils Percent Auto 5.7 % (0-4); Hematocrit 46.4 % (42.0-52.0); Hemoglobin 16.1 g/dl (14.0-18.0); Imm Gran Abs Auto 0.01 X10*3/uL (0.00-0.03); Imm Gran Pct Auto 0.2 % (0.0-0.4); Lymphocytes Absolute Auto 1.8 X10*3/uL (1.2-4.9); Lymphocytes Percent Auto 36.1 % (20-40); Mean Corpuscular HGB Conc 34.7 g/dl (31.0-36.0); Mean Corpuscular Hemoglobin 30.3 pg (27.0-33.0); Mean Corpuscular Volume 87.4 fL (80.0-98.0); Mean Platelet Volume 9.4 fL (9.4-12.4); Monocytes Absolute Auto 0.5 X10*3/uL (0.1-1.2); Monocytes Percent Auto 9.5 % (2-11); Neutrophils Absolute Auto 2.3 x10*3/uL (2.0-8.3); Neutrophils Percent Auto 47.3 % (45-73); Platelet Count 257 X10*3/uL (160-400); Red Blood Count 5.31 X10*6/uL (4.60-5.80); Red Cell Distribution Width 12.3 % (11.0-16.0); White Blood Count 4.9 X10*3/uL (4.8-10.8)
[2024-12-01 07:30] LABS: Estimated Average Glucose 226 mg/dL; Hemoglobin A1c % 9.5 % (<6.0)
[2024-12-01 07:49] LABS: Alanine Aminotransferase 38 U/L (0-40); Albumin Level 4.5 g/dL (3.5-5.0); Alkaline Phosphatase 90 U/L (39-117); Anion Gap 13 (12-20); Aspartate Amino Transferase 25 U/L (5-37); Bilirubin Total 0.6 mg/dL (0.0-1.0); Blood Urea Nitrogen 16 mg/dL (9-16); Calcium 9.5 mg/dL (8.4-10.2); Carbon Dioxide 27 mmol/L (22-29); Chloride 105 mmol/L (96-108); Cholesterol 223 mg/dL (<200); Estimated Glomerular Filt Rate > 60; Glucose Fasting 66 mg/dL (60-99); HDL Cholesterol 94 mg/dL (>40); LDL Cholesterol Calculated 120 mg/dL (<100); Potassium 3.9 mmol/L (3.3-5.1); Sodium 141 mmol/L (135-145); Total Protein 6.9 g/dL (6.5-8.0); Triglycerides 47 mg/dL (<150)
== END 2024-12-01 06:59 | disposition home or self-care (01) ==
LOC: HO.LAB 06:58
PROVIDERS: PCP Internal Medicine Medical Oncology; Visit Provider Internal Medicine Medical Oncology
DX: R07.9 Chest pain, unspecified (principal); R06.02 Shortness of breath; E11.9 Type 2 diabetes mellitus without complications; E66.3 Overweight; Z00.00 Encounter for general adult medical examination without abnormal findings
CPT/HCPCS: 36415; 71046; 80053; 80061; 83036; 85025

== ENCOUNTER → 2024-12-01 09:59 | Outpatient (BNV) | payer BC, SELFPAY | PROVIDERS: PCP Internal Medicine Medical Oncology; Visit Provider Radiology Diagnostic Radiology | DX: R07.9 Chest pain, unspecified (principal) | CPT/HCPCS: 71046 ==

== ENCOUNTER 2025-02-06 08:51 | Outpatient (AMB) | payer BC, SELFPAY ==
--- NOTE | 2025-02-06 08:53 | MHC.OFFVIS ---
Vital Signs 02/06/25 08:56 Height 6 ft 1 in Weight 172 lb 2.896 oz BMI 22.7 BP 142/78 H Blood Pressure Location Rt brachial Position Sitting Pulse 75 Pulse Source Pulse Oximeter Pulse Oximetry (%) 95 Oxygen Delivery Method Room Air Intake Visit Reasons: T2DM Intake Note: New patient present today for T2DM management. Last Diabetic Eye exam: August 2024, [facility] Last Podiatry Visit: Does not see a Date Night Sitter Random Glucose: 217 mg/dl HgA1C: 9.5% 12/01/2024 Aboriginal Liaison Officer Required: No Accompanied by: Self / Same As Patient Allergies No Known Allergies Allergy (Verified 02/06/25 08:57) Medication List - Last Reconciled 02/06/25 by Gary Jean MD blood sugar diagnostic As directed blood-glucose meter (Accu-Chek Guide Glucose Meter) As directed insulin glargine-yfgn (Semglee (insulin glargine-yfgn) Pen) 37 units subcut QAM multivitamin 1 tab PO DAILY HPI Comments Details: 54 YO M who is seen in consultation for T2DM at the request of PCP. Initially diagnosed with DM at age 36 [address] Valdivia yrs Was initially started on treatment with metformin . Current regimen Semglee 38 units . Unfortunately, patient did not bring glucometer, log book or sensor to appointment. Checks rarely Reports low sugars occasionally . Treats lows with eats something . Not Checks sugar after to ensure it is rising. [Treats] according to rule of 15's. Most recent A1C 9.5 on 12/01/24 No Family history of T2DM Has eyes checked yearly, last eye exam August 2024 , denies retinopathy. Denies neuropathy, not , sees podiatry. Denies nephropathy, on LANE/ARB. Has HLD,Not on statin. Last LDL [] as measured on []. Denies CAD. Had diabetes education not recently . [facility], [facility] Medical History Elevated cholesterol Right inguinal hernia Arthritis Diabetes Surgical History History of right inguinal hernia repair (~04/17/23) H/O colonoscopy History of dental surgery Family History (Updated 02/06/25 @ 08:58 by SKYLAR Roque) Mother Bladder cancer Father Pancreatic cancer Social History Are you a primary assistant child care teacher to a significant other at home: No Do you presently have visiting nurse or other home services: No Patient Tobacco Use Status: Never used Tobacco Physical Exam Vital Signs: BMI result Body Mass Index 22.7 Absence of Cushingoid features. Absence of acromegalic features. Neck exam reveals nl size thyroid about 15 gms. No thyroid nodules palpable. No carotid bruits present. Lungs CTA. Heart S1 S2, Reg R/R. No M/R/ G. Skin exam reveals absence of vitiligo or acanthosis nigricans. Abdominal exam reveals Soft NT/ND with NA BS. No organomegaly present. Neck Other: . Extrem Other: Visual exam of foot performed. No ulcerations or open lesions. No onchomycosis, no callouses.Pulses 2 + distally Sensation intact to monofilament exam. Vibratory sensation sensed is intact with 128 Hz tuning fork Assessment & Plan Assessment & Plan (1) Uncontrolled type 2 diabetes mellitus with hyperglycemia: Code(s): E11.65 - Type 2 diabetes mellitus with hyperglycemia Category: Medical Plan: This is a 54-year-old white male with a history of diabetes ? TYpe 1 vs Type 2 currently on basal insulin with poor glycemic control and no known microvascular or macrovascular complications. Plan is to send the patient to a museum educator and perl software engineer. We will try to initiate a sensor namely Vicente 3+. Could not make any changes to the regimen today because of lack of data. Anti-cady 65 antibodies as well as C-peptide and insulin. If patient has type 1 diabetes, we will need to initiate prandial insulin or if post-prandial blood sugars high. Explained to patient correlation of poor glycemic control to development of progression of complications. Lastly initiated atorvastatin 10 mg and will recheck lipid profile in 8 weeks Orders: Orders Glutamic acid decarboxylase Ab Today E11.65 - Type 2 diabetes mellitus with hyperglycemia Lipid Panel 6 Weeks E11.65 - Type 2 diabetes mellitus with hyperglycemia Glucose Random Today E11.65 - Type 2 diabetes mellitus with hyperglycemia C Peptide Today E11.65 - Type 2 diabetes mellitus with hyperglycemia Referrals Diabetes Education Referral E11.65 - Type 2 diabetes mellitus with hyperglycemia Nutrition/Dietitian Referral E11.65 - Type 2 diabetes mellitus with hyperglycemia Medications: New atorvastatin (Lipitor) 10 mg PO DAILY 30 tabs 4RF blood-glucose sensor (FreeStyle Vicente 3 Plus Sensor device) As directed change every 15 days 2 ea 4RF glucagon 3 mg/actuation (Baqsimi) 3 mg intranasal ONCE 2 ea 4RF Coding Level of Care Code New Pt Level 5 (49815) Diagnoses Uncontrolled type 2 diabetes mellitus with hyperglycemia E11.65
[2025-02-06 08:56] VITALS: BP 142/78; PULSE 75; O2SAT 95; BMI 22.7
[2025-02-06 09:08] LABS: Glucose, Whole Blood 217 mg/dL (60-115)
--- OUTSIDE RECORDS SUMMARY | 2025-02-06 09:19 | XMS_ITS | Patient Health Record ---
Author Organization [facility] Address [address] [place] [address] Care Team Providers Care Java Sybase Developer Name Role Phone Gary Funez MD Primary Care Provider Unavailab Gary Zabala Unavailable [phone] Allergies No Known Allergies Reason For Referral No Information Medications Medication SIG (Take, Route, Frequency, Duration) Notes Start Date End Date Status Lantus SoloStar 100 UNIT/ML Subcutaneous for 30 Active Immunizations Vaccine Route Administration Date Status Comme nts Influenza Unknown 06/12/2021 Refused Social History Tobacco Use: Social History Observation [...] drinks (1 point) Points 3 Interpretation Negative Section Notes: Nonsmoker; Some beers on the weekend Problems Problem Type SNOMED Code ICD Code Onset Dates Problem Status W/U Status Risk Notes Problem [id number] Encounter for screening for malignant neoplasm of colon (Z12.11) Active confirmed Problem [id number] Preprocedural examination (Z01.818) Active confirmed Plan Of Treatment Future Test Test Name Order Date COLONOSCOPY 06/12/2021 Insurance Providers Payer Name Payer Address Payer Phone Subscriber Number Group Number Insured Name Patient Relationship to Insured Coverage Start Date Coverage End Date [facility] [employer] [facility] [address] [place] [address] [id number] ARMANDO IRIS Self - patient is the insured Medical (General) History Medical History History ICD Code IDDM Denies [place],CVA,Lung disease,renal disease Surgical History Surgery Date(Month/Year)
--- OUTSIDE RECORDS SUMMARY | 2025-02-06 09:19 | XMS_ITS | Patient Health Record ---
Author Organization Gary Funez III, MD Address [address] [place] [address] Care Team Providers Care Flooring Installer Name Role Phone Gary Funez Primary Care Provider Allergies Allergen (clinical drug ingredient) Drug/Non Drug Allergy documented on EMR Reaction Allergy Type Onset Date Status No Known Drug Allergy Unknown Drug Allergy Active Results Component Value Reference Range Notes Complete Blood Count Auto Di ff Reviewed date:07/07/2024 01:26:26 PM Interpretation: Performing Lab:[facility], [address] [place] [phone] Notes/Report: White Blood Count 6.0 4.8-10.8 X10*3/uL Red Blood Count 5.18 4.60-5.80 X10*6/uL Hemoglobin 15.7 14.0-18.0 g/dl Hematocrit 44.8 42.0-52.0 % Mean Corpuscular Volume 86.5 80.0-98.0 fL Mean Corpuscular Hemoglobin 30.3 27.0-33.0 pg Mean Corpuscular HGB Conc 35.0 31.0-36.0 g/dl Red Cell Distribution Width 12.2 11.0-16.0 % Platelet Count 293 160-400 X10*3/uL Mean Platelet Volume 9.9 9.4-12.4 fL Neutrophils Percent Auto 59.8 45-73 % Imm Gran Pct Auto 0.2 0.0-0.4 % Lymphocytes Percent Auto 24.6 20-40 % Monocytes Percent Auto 10.6 2-11 % Eosinophils Percent Auto 4.0 0-4 % Basophils Percent Auto 0.8 0-2 % NRBC Pct Auto 0.0 0.0-0.2 /100WBC Neutrophils Absolute Auto 3.6 2.0-8.3 x10*3/u L Imm Gran Abs Auto 0.01 0.00-0.03 X10*3/uL Lymphocytes Absolute Auto 1.5 1.2-4.9 X10*3/u L Monocytes Absolute Auto 0.6 0.1-1.2 X10*3/uL Eosinophils Absolute Auto 0.2 0.0-0.4 X10*3/u L Basophils Absolute Auto 0.1 0.0-0.2 X10*3/uL NRBC Abs Auto 0.000 0.0-0.012 X10*3/uL Comprehensive [place]. Panel Fa st Reviewed date:07/07/2024 01:26:26 PM Interpretation: Performing Lab:[address] [phone] Notes/Report: Sodium 140 135-145 mmol/L Potassium 3.7 3.3-5.1 mmol/L Chloride 106 96-108 mmol/L Carbon Dioxide 26 22-29 mmol/L Anion Gap 12 12-20 Blood Urea Nitrogen 17 9-16 mg/dL Creatinine 0.74 0.5-1.4 mg/dL Estimated Glomerular Filt Rate > 60 Chronic Kidney Disease: Estimated GFR < 60 mL/min/1.73m2 Severe Kidney Disease: Estimated GFR < 15 mL/min/1.73m2 Glucose Fasting 67 60-99 mg/dL Calcium 9.5 8.4-10.2 mg/dL Bilirubin Total 0.5 0.0-1.0 mg/dL Aspartate Amino Transferase 47 5-37 U/L Alanine Aminotransferase 40 0-40 U/L Total Protein 7.2 6.5-8.0 g/dL Albumin Level 4.4 3.5-5.0 g/dL Alkaline Phosphatase 91 39-117 U/L Lipid Panel Reviewed date:07/07/2024 01:26:26 PM Interpretation: Performing Lab:[address] [phone] Notes/Report: Triglycerides 45 <150 mg/dL Desirable Triglyceride: less than 150 mg/dL Borderline High Triglyceride 150-199 mg/dL High Triglyceride: 200-499 mg/dL Very High Triglyceride: greater than or equal to 5OO mg/dL Cholesterol 231 <200 mg/dL Desirable Cholesterol: less than 200 mg/dL Borderline High Cholesterol: 200-239 mg/dL High Cholesterol: greater than 239 mg/dL LDL Cholesterol Calculated 120 <100 mg/dL Desirable LDL: less than 100 mg/dL Near Optimal/Above Optimal LDL: 110-129 mg/dL Borderline High LDL: 130-159 mg/dL High LDL: 160-189 mg/dL Very High LDL: greater than or equal to 190 mg/dL HDL Cholesterol 102 >40 mg/dL Desirable HDL: greater than 40 mg/dL Note: This HDL assay may give artificially low results in patients with liver disease. Microalbumin, Random Reviewed date:07/07/2024 01:26:26 PM Interpretation: Performing Lab:[address] [phone] Notes/Report: Creatinine Urine 93.87 Microalbumin Urine 23.0 Microalbum/Creatinine Ratio Ur 24.5 <30 ug/mg cr Albumin/Creatinine Ratio Reference Ranges: Normal: < 30 ug/mg creatinine Microalbuminuria: 30 - 300 ug/mg creatinine Clinical Albuminuria: > 300 ug/mg creatinine Hemoglobin A1c Reviewed date:07/07/2024 01:26:26 PM Interpretation: Performing Lab:[address] [phone] Notes/Report: Hemoglobin A1c % 9.3 <6.0 % Hemoglobin A1C Reference Range Adults: 4.8 - 6.0 % Non diabetic: < 6.0 % Goal: < 7.0 % Additional Action Suggested: > 8.0 % Note: Hemoglobin A1c results are invalid for patients with abnormal amounts of HbF. Blood transfusions may impact the HbA1c concentration in the patient sample. Estimated Average Glucose 220 eAG = Estimated average glucose which is %A1C expressed as average glucose, using the formula of the W8Z-Zljvexh Average Glucose study (ADAG), Diabetes Care, Vol.31,#8, Jan. 2007 Complete Blood Count Auto Di ff Reviewed date:12/01/2024 09:26:09 AM Interpretation: Performing Lab:[facility], [address] [place] [phone] Notes/Report: White Blood Count 4.9 4.8-10.8 X10*3/uL Red Blood Count 5.31 4.60-5.80 X10*6/uL Hemoglobin 16.1 14.0-18.0 g/dl Hematocrit 46.4 42.0-52.0 % Mean Corpuscular Volume 87.4 80.0-98.0 fL Mean Corpuscular Hemoglobin 30.3 27.0-33.0 pg Mean Corpuscular HGB Conc 34.7 31.0-36.0 g/dl Red Cell Distribution Width 12.3 11.0-16.0 % Platelet Count 257 160-400 X10*3/uL Mean Platelet Volume 9.4 9.4-12.4 fL Neutrophils Percent Auto 47.3 45-73 % Imm Gran Pct Auto 0.2 0.0-0.4 % Lymphocytes Percent Auto 36.1 20-40 % Monocytes Percent Auto 9.5 2-11 % Eosinophils Percent Auto 5.7 0-4 % Basophils Percent Auto 1.2 0-2 % NRBC Pct Auto 0.0 0.0-0.2 /100WBC Neutrophils Absolute Auto 2.3 2.0-8.3 x10*3/u L Imm Gran Abs Auto 0.01 0.00-0.03 X10*3/uL Lymphocytes Absolute Auto 1.8 1.2-4.9 X10*3/u L Monocytes Absolute Auto 0.5 0.1-1.2 X10*3/uL Eosinophils Absolute Auto 0.3 0.0-0.4 X10*3/u L Basophils Absolute Auto 0.1 0.0-0.2 X10*3/uL NRBC Abs Auto 0.000 0.0-0.012 X10*3/uL Comprehensive [place]. Panel Fa st Reviewed date:12/01/2024 09:26:09 AM Interpretation: Performing Lab:[facility], [address] [place] [phone] Notes/Report: Sodium 141 135-145 mmol/L Potassium 3.9 3.3-5.1 mmol/L Chloride 105 96-108 mmol/L Carbon Dioxide 27 22-29 mmol/L Anion Gap 13 12-20 Blood Urea Nitrogen 16 9-16 mg/dL Creatinine 0.75 0.5-1.4 mg/dL Estimated Glomerular Filt Rate > 60 Chronic Kidney Disease: Estimated GFR < 60 mL/min/1.73m2 Severe Kidney Disease: Estimated GFR < 15 mL/min/1.73m2 Glucose Fasting 66 60-99 mg/dL Calcium 9.5 8.4-10.2 mg/dL Bilirubin Total 0.6 0.0-1.0 mg/dL Aspartate Amino Transferase 25 5-37 U/L Alanine Aminotransferase 38 0-40 U/L Total Protein 6.9 6.5-8.0 g/dL Albumin Level 4.5 3.5-5.0 g/dL Alkaline Phosphatase 90 39-117 U/L Lipid Panel Reviewed date:12/01/2024 09:26:09 AM Interpretation: Performing Lab:[facility], [address] [place] [phone] Notes/Report: Triglycerides 47 <150 mg/dL Desirable Triglyceride: less than 150 mg/dL Borderline High Triglyceride 150-199 mg/dL High Triglyceride: 200-499 mg/dL Very High Triglyceride: greater than or equal to 5OO mg/dL Cholesterol 223 <200 mg/dL Desirable Cholesterol: less than 200 mg/dL Borderline High Cholesterol: 200-239 mg/dL High Cholesterol: greater than 239 mg/dL LDL Cholesterol Calculated 120 <100 mg/dL Desirable LDL: less than 100 mg/dL Near Optimal/Above Optimal LDL: 110-129 mg/dL Borderline High LDL: 130-159 mg/dL High LDL: 160-189 mg/dL Very High LDL: greater than or equal to 190 mg/dL HDL Cholesterol 94 >40 mg/dL Desirable HDL: greater than 40 mg/dL Note: This HDL assay may give artificially low results in patients with liver disease. Hemoglobin A1c Reviewed date:12/01/2024 09:26:09 AM Interpretation: Performing Lab:[facility], [address] [place] [phone] Notes/Report: Hemoglobin A1c % 9.5 <6.0 % Hemoglobin A1C Reference Range Adults: 4.8 - 6.0 % Non diabetic: < 6.0 % Goal: < 7.0 % Additional Action Suggested: > 8.0 % Note: Hemoglobin A1c results are invalid for patients with abnormal amounts of HbF. Blood transfusions may impact the HbA1c concentration in the patient sample. Estimated Average Glucose 226 eAG = Estimated average glucose which is %A1C expressed as average glucose, using the formula of the B5D-Qbwoosi Average Glucose study (ADAG), Diabetes Care, Vol.31,#8, 2007 XR chest 2V Reviewed date:12/04/2024 05:14:52 PM Interpretation: Performing Lab: Notes/Report: [address] [address] XRay Report Signed Patient: Lazaro Roberts MR#: [id number] [birth year] : 1970 Acct:[id number] Age/Sex: 54 / M ADM Date: 12/01/24 Loc: HO.LAB Attending Dr: Gary Funez MD Ordering Physician: Gary Funez MD Date of Service: 12/01/24 Procedure(s): XR chest 2V Accession Number(s): [id number] cc: Gary Funez MD CLINICAL HISTORY: CHEST PAIN, SOB --- Additional Notes or Special Instructions: O 2 view chest x-ray Comparison: None Findings: Clear lungs. Heart size is normal. No acute fracture. IMPRESSION: 1. No acute findings. This document has been electronically signed by: Higinio Alvarez MD on 12/02/2024 09:01:29 Dictated By: Higinio Alvarez MD Signed By: <Electronically signed by Higinio Alvarez MD in [place]> 12/02/24902 DD/ 0 TD/TT: 12/02/24900 Environmental Compliance Engineer: [address] [address] XRay Report Signed Patient: Yael Roberts MR#: [id number] [birth year] : 1970 Acct:[id number] Age/Sex: 54 / M ADM Date: 12/01/24 Loc: HO.LAB Attending Dr: Gary Funez MD Ordering Physician: Gary Funez MD Date of Service: 12/01/24 Procedure(s): XR sara st 2V Accession Number(s): [id number] cc: Gary Funez MD CLINICAL HISTORY: CHEST PAIN, SOB --- Additional Notes or Special Instructions: O 2 view chest x-ray Comparison: None Findings: Clear lungs. Heart size is normal. No acute fracture. IMPRESSION: 1. No acute findings. This document has be en electronically signed by: Higinio Alvarez MD on 12/02/2024 09:01:29 Dictated By: Higinio Alvarez MD Signed By: <Electronically signed by Higinio Alvarez MD in [place]> 12/02/24902 DD/ 0 TD/TT: 12/02/24900 Environmental Compliance Engineer: Glucose, Whole Blood (Not ye t reviewed by provider) Interpretation: Performing Lab:[facility], [address] [place] [phone] Notes/Report: Glucose, Whole Blood 217 60-115 mg/dL METER #: [id number] Testing performed in the Endocrinology Department and [facility] , [address], [facility]. 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) Referral Organization Gary Funez III, MD Referring Provider First Name Gary Referring Provider Last Name Armin Referring Provider Speciality Internal edicine Referred Provider Bijan Medel Referred Provider Specialty Ophthalmolog y General Notes Sharmila Anderson CMA 01/22 09:11:09 AM EDT > ref/demo/ progress note faxed to Dr Danielle pt stated he has seen him in the past for diabetic eye care, Sharmila Anderson CMA 03/05/2023 03:04:52 PM EDT > I called Dr Danielle office made patient appt for Thursday06/29/2024 at 3:20pm information mailed to pt Referral Priority Routine Referral Appointment Date 06/29/2024 Reason Evaluate and Treat Optimize diabetic regimen Diagnosis 1 Type 2 diabetes pepe itus without complications (E11.9) Diagnosis 2 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 Referral refaxed, Carlita Paul 11/16/2024 11:22:22 AM > Spoke with Hilaria at [facility] Endocrinology stated they have not received the referral. Fax number was confirmed and refaxed HumbertoCarlita 11/21/2024 02:52:59 PM > Spoke with Hilaria at [facility] Endocrinology they have received the referral but need the completed progress note done form 07/08/2024 signed and faxed to [phone] ATTN; Humberto Manrique, Carlita 11/24/2024 03:02:27 PM > Progress note was faxed to [facility] End[facility]ology [facility], ATTN: Humberto Manrique, Carlita 12/21/2024 01:53:28 PM > Spoke with Hilaria at [facility] Endocrinology she stated they have the referral and progress note. They have reached out to the patient 2x and no call back from the patient. Patient was contacted and left a message providing [facility] Endocrinology and diabetes center number to call and schedule an appointment with their office as soon as possible. Referral Priority Routine Referral Appointment Date 02/06/2025 Medications Medication SIG (Take, Route, Frequency, Duration) Notes Start Date End Date Status BD Pen Needle Ainsley U/F 32G X 4 MM as directed use as directed test once a day 08/22/2016 Active Semglee (yfgn) 100 UNIT/ML 38 units once a day Subcutaneous once a day 11/29/2024 Active Pen Byron 29G X 12MM as directed use a [...] nonsmoker Additional Findings: Tobacco Non-User Aggressive non-smoker Alcohol Screen Question Answer Notes Did you have a drink containing alcohol in the p ast year? No Points 0 Interpretation Negative Problems Problem Type SNOMED Code ICD Code Onset Dates Problem Status W/U Status Risk Notes Problem 111346604 Overweight (E66.3) Active confirmed He is very slightly overweight. We have discussed the effect of this on glycemic control. I recommended he stabilize his weight at this level and gradually redduce it with a target BMI of 23. Problem 04052262 Type 2 diabetes mellitus without complications (E11.9) Active confirmed For the first time today he has been willing to consider more modern therapy for controlling of insulin-depend ent diabetes such as a sensor and basal insulin. I have referred him to endocrinology to make this happen. I have been unsuccessful in managing his diabetes. His most recent A1c is 9.5. I have increased his SEMGLEE by 10 units. 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 Problem 497037780488400 Primary osteoarthritis, left hand (M19.042) Active confirmed He will continue with the bindery supervisor . He is able to conduct all of the activities of daily living. Problem 799909554 Shortness of breath (R06.02) Active confirmed His oxygen saturation is normal. I have ordered chest x-ray. 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 Problem 19684722 Chest pain, unspecified type (R07.9) Active confirmed A chest x-ray has been ordered to evaluate his atypical chest pain. Problem 855610149 Benign prostatic hyperplasia, unspecified whether lower urinary tract symptoms present (N40.0) Active confirmed He says he arises from sleep once or twice a night to urinate. I have discussed with him lifestyle modifications that could help reduce nocturia. Vital Signs Heart Rate 63 /min 12/01/2024 Temperature 97.6 degrees Fahrenheit 12/01/2024 Oximetry 97 % 12/01/2024 Blood pressure diastolic 76 mm Hg 12/01/2024 Height 71 in 12/01/2024 Blood pressure systolic 134 mm Hg 12/01/2024 Weight 174 lbs 12/01/2024 BMI 24.27 kg/m2 12/01/2024 Encounters Encounter Location Date Provider Diagnosis Gray Funez III, MD [address] [place] [address] [address] [place], [place] [phone] 07/08/2024 Gary Funez Type 2 diabetes mellitus without complications E11.9 ; terminal operations supervisor (current) use of insulin Z79.4 ; Primary osteoarthritis, right hand M19.041 ; Primary osteoarthritis, left hand M19.042 and Benign prostatic hyperplasia, unspecified whether lower urinary tract symptoms present N40.0 Gayr Funez III, MD [address] [place] [address] [place] [address] 12/01/2024 Gary Funez Chest pain, unspecif ied type R07.9 ; Shortness of breath R06.02 ; Type 2 diabetes mellitus without complications E11.9 ; alf (current) use of insulin Z79.4 ; Primary osteoarthritis, right hand M19.041 ; Primary osteoarthritis, left hand M19.042 and Benign prostatic hyperplasia, unspecified whether lower urinary tract symptoms present N40.0 Gary Funez III, MD [address] [place] [address] [place] [phone] 07/22/2024 Gary Funez III, MD [address] [place] [address] [place] [phone] 08/31/2024 Gary Funez III, MD [address] [place] [address] [place] [phone] 11/29/2024 Gary Funez Assessments Encounter Date Diagnosis (ICD [...] His most recent A1c is 9.3. 07/08/2024 alf (current) use of insulin (ICD-10 - Z79.4) We have discussed how to adjust his insulin depending upon his testing. 12/01/2024 Shortness of breath (ICD-10 - R06.02) His oxygen saturation is normal. I have ordered chest x-ray. Quite comfortable 12/01/2024 Chest pain, unspecified type (ICD-10 - R07.9) A chest x-ray has been ordered to evaluate his atypical chest pain. 07/08/2024 Primary osteoarthritis, right hand (ICD-10 - M19.041) He will continue with the bindery supervisor. 12/01/2024 Type 2 diabetes mellitus without complications [...] have increased his SEMGLEE by 10 units. 07/08/2024 Primary osteoarthritis, left hand (ICD-10 - M19.042) He will continue with the bindery supervisor. He is able to conduct all of the activities of daily living. 12/01/2024 alf (current) use of insulin (ICD-10 - Z79.4) We have discussed how to adjust his insulin depending upon his testing. 07/08/2024 Benign prostatic hyperplasia, unspecified whether lower urinary tract symptoms present (ICD-10 - N40.0) He says he arises from sleep once or twice a night to urinate. I have discussed with him lifestyle modifications that could help reduce nocturia. 12/01/2024 Primary osteoarthritis, right hand (ICD-10 - M19.041) He will continue with the bindery supervisor. 12/01/2024 Primary osteoarthritis, left hand (ICD-10 - M19.042) He will continue with the bindery supervisor. He is able to conduct all of the activities of daily living. 12/01/2024 Benign prostatic hyperplasia, unspecified whether lower urinary tract symptoms present (ICD-10 - N40.0) He says he arises from sleep once or twice a night to urinate. I have discussed with him lifestyle modifications that could help reduce nocturia. Plan Of Treatment Pending Test Test Name Order Date PROFILE, FASTING (COMPREHENSIVE METABOLI C) 12/26/2016 PROFILE, FASTING (COMPREHENSIVE METABOLI C) 11/18/2023 PROFILE, FASTING (COMPREHENSIVE METABOLI C) 07/08/2024 PROFILE, FASTING (COMPREHENSIVE METABOLI C) 01/07/2021 PROFILE, FASTING (COMPREHENSIVE METABOLI C) 06/27/2021 PROFILE, FASTING (COMPREHENSIVE METABOLI C) 07/22/2023 PROFILE, FASTING (COMPREHENSIVE METABOLI C) 02/22/2021 PROFILE, FASTING (COMPREHENSIVE METABOLI C) 02/16/2023 HEMOGLOBIN A1C (GLYCOHEMOGLOBIN) 021 HEMOGLOBIN A1C (GLYCOHEMOGLOBIN) 022 HEMOGLOBIN A1C (GLYCOHEMOGLOBIN) 024 HEMOGLOBIN A1C (GLYCOHEMOGLOBIN) 021 HEMOGLOBIN A1C (GLYCOHEMOGLOBIN) 023 LIPID PANEL 01/07/2021 LIPID PANEL 06/27/2021 LIPID PANEL 02/22/2021 LIPID PANEL 02/16/2023 LIPID PANEL 12/26/2016 PSA, TOTAL 02/16/2023 PSA, TOTAL 11/18/2023 PSA, TOTAL+FREE 06/27/2021 MICROALBUMIN, RANDOM 01/07/2021 MICROALBUMIN, RANDOM 02/22/2021 MICROALBUMIN, RANDOM 02/16/2023 MICROALBUMIN, RANDOM 11/18/2023 CBC w DIFF 11/18/2023 CBC w DIFF 07/22/2023 CBC w DIFF 01/07/2021 CBC w DIFF 06/27/2021 CBC w DIFF 02/22/2021 CBC w DIFF 12/26/2016 CBC w DIFF 02/16/2023 XR CHEST 2 VIEW PA & LAT 12/01/2024 XR CHEST 2 VIEW PA & LAT 06/27/2021 XR HAND LT 02/16/2023 XR HAND RT 02/16/2023 XR WRIST LT 02/16/2023 XR WRIST RT 02/16/2023 CBC WITH AUTO DIFF 07/08/2024 Lipid Panel 07/08/2024 Lipid Panel 11/18/2023 Lipid Panel 07/22/2023 Testosterone, Total 12/01/2024 Glucose, Whole Blood 02/06/2025 Hemoglobin A1c 07/08/2024 Hemoglobin A1c 11/18/2023 Next Appt Details Provider Name:Gary Funez, 07/10/2025 09:30:00 AM, [address] [place] [address] DR [facility] [place], [place], [address], Insurance Providers Payer Name Payer Address Payer Phone Subscriber Number Group Number Insured Name Patient Relationship to Insured Coverage Start Date Coverage End Date [facility] [address] [place], [place] [id number] [phone] [id number] [address]ña Rossana Spouse - patient is the spouse of the insured Medical (General) History Medical History History ICD Code type II diabetes 2021 [facility] tubular adenoma 2023 hernia repair Surgical History Surgery Date(Month/Year) Hernia repair by Dr Peterson 07/2023 colonoscopy, [facility], Beth, one tubular nestor noma 07/15/2021
--- OUTSIDE RECORDS SUMMARY | 2025-02-06 09:19 | XMS_ITS | Clinical Summary ---
Author Organization [facility] Address [address] [facility] [address] [place] [address] Phone Care Team Providers Care Release Of Information Clerk Name Role Phone Gary Funez MD Primary Care Provider [phone] Allergies No known active allergies Medications LANTUS SOLOSTAR U-100 INSULIN 100 unit/mL (3 mL) InPn injection pen INJ 34 UNITS SQ QD 04/16/2020 Active atorvastatin (LIPITOR) 10 MG tablet 06/06/2021 Active Active Problems No known active problems Immunizations Immunization Administration Dates Next Due Tdap 06/12/2021 Family History Medical History Relation Comments Cancer Father Pancreatic cancer Father Bladder Cancer Mother Cancer Mother Relation Status Comments Father Mother Social History Tobacco Use Types Packs/Day Years Used Date Smoking Tobacco: Never Smokeless Tobacco: Never Alcohol Use Standard Drinks/Week Comments Yes 0 (1 standard drink = 0.6 oz pur e alcohol) occasionally Education Answer Date Recorded Are you interested in more education? Not on stanislav e 10/17/2022 Are you concerned about learning? Not on file 10/17/2022 No 10/17/2022 No 10/17/2022 Digital Access Answer Date Recorded No 11/15/2022 No 11/15/2022 No 11/15/2022 Reliable internet access at home? Not on file 11/15/2022 Device with a working camera? Not on file Sex and Gender Information Value Date Recorded Sex Assigned at Not on file Legal Sex Male 8:49 AM EST Gender Identity Not on file Sexual Orientation Not on file Last Filed Vital Signs Vital Sign Reading Time Taken Comments Blood Pressure 165/94 06/12/2021 5:53 PM EST Pulse 61 06/12/2021 5:53 PM EST Temperature 36.9 C (98.4 F) 06/12/2021 5:53 PM EST Respiratory Rate 16 06/12/2021 5:53 PM EST Oxygen Saturation 99% 06/12/2021 5:53 PM EST Inhaled Oxygen Concentration - - Weight 83.9 kg (185 lb) 06/12/2021 5:53 PM EST Height 185.4 cm (6' 1 ) 06/12/2021 5:53 PM EST Body Mass Index 24.41 06/12/2021 5:53 PM EST Plan of Treatment Health Maintenance Due Date Last Done Comments LIPID PANEL 1971 DEPRESSION SCREENING 1983 HEPATITIS C SCREENING 1989 HIV ONE-TIME SCREENING (18-6 5 YEARS) 1989 COLOGUARD 2016 COLONOSCOPY 2016 COLORECTAL CANCER SCREENING 2016 FIT TEST 2016 FOBT 2016 SIGMOIDOSCOPY 2016 VIRTUAL COLONOSCOPY 2016 PNEUMOCOCCAL VACCINES (50+ years) (1 of 1 - PCV) 2021 ZOSTER VACCINES (1 of 2) 2021 COVID-19 VACCINE (3 - 2023-2 5 season) 2024 09/21/2020, 08/31/2020 Adult Td,Tdap Booster 06/12/2031 06/12/2021 SMOKING STATUS SCREENING (On ce After 26 Yrs) Completed 06/12/2021 HEPATITIS A VACCINES Aged Out No long er eligible based on patient's age to complete this topic HIB VACCINES Aged Out No longer eligi ble based on patient's age to complete this topic MENINGOCOCCAL VACCINES (ACWY) Aged Out No longer eligible based on patient's age to complete this topic MENINGOCOCCAL VACCINES (B) Aged Out N o longer eligible based on patient's age to complete this topic Medical Devices Not on file Insurance [facility] HMO POS [facility] HMO POS [facility] HMO POS [facility] POS [facility] H[facility] POS [facility] [place] [address] [place] [address] [place], [place] [address]O POS Care Teams Release Of Information Clerk Relationship Specialty Start Date End Date Gary Funez MD [address] [place] [address] PCP - General Medical Oncology 04/23/20 Additional Source Comments The information contained in this document represents components of the legal health record. It is not the complete legal health record.[facility]
== END 2025-02-06 09:44 | disposition home or self-care (01) ==
LOC: HO.ENCR 08:51
PROVIDERS: PCP Internal Medicine Medical Oncology; Visit Provider Internal Medicine Endocrinology, Diabetes & Metabolism
DX: E11.65 Type 2 diabetes mellitus with hyperglycemia (principal); Z79.4 Long term (current) use of insulin
CPT/HCPCS: 99204

== ENCOUNTER → 2025-02-06 08:51 | Outpatient (BNVA) | payer BC, SELFPAY | PROVIDERS: PCP Internal Medicine Medical Oncology; Visit Provider Internal Medicine Endocrinology, Diabetes & Metabolism | DX: E11.65 Type 2 diabetes mellitus with hyperglycemia (principal); Z79.4 Long term (current) use of insulin | CPT/HCPCS: 82947 ==

== ENCOUNTER 2025-04-25 09:29 | Outpatient (AMB) | payer BC, SELFPAY ==
--- OUTSIDE RECORDS SUMMARY | 2023-11-18 05:30 | XMS_ITS ---
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 Gary Funez III Primary Care Provider Allergies Allergen (clinical drug ingredient) Drug/Non Drug Allergy documented on EMR Reaction Allergy Type Onset Date Status No Known Drug Allergy Unknown Drug Allergy Active REASON FOR VISIT Insulin-dependent diabetes mellitus, Osteoarthritis, Benign prostatic hypertrophy Medications Medication SIG (Take, Route, Frequency, Duration) Notes Start Date End Date Status BD Pen Needle Ainsley U/F 32G X 4 MM as directed use as directed test once a day 08/22/2016 Active Accu-Chek Asya Plus - as directed In Vi tro test once a day 08/22/2016 Active Pen [place] 29G X 12MM as directed use a s directed use once a day 01/30/2015 Active Lantus SoloStar 100 UNIT/ML 40 units Subcutaneous once a day 07/10/2023 Active Meloxicam 15 MG TAKE 1 TABLET BY YVAN TH EVERY DAY Oral Active Basaglar KwikPen 100 UNIT/ML as directed Subcutaneous once a day 07/10/2023 Active Social History Tobacco Use: Social History Observation Description Date Details (start date - stop date) Never Smoker NA - NA Sex Assigned At : Social History Observation Description Sex Assigned At Male Tobacco Use/Smoking Question Answer Notes Patient is a nonsmoker Additional Findings: Tobacco Non-User Aggressive non-smoker Problems Problem Type SNOMED Code ICD Code Onset Dates Problem Status W/U Status Risk Notes Problem 601297713 Benign prostatic hyperplasia, unspecified whether lower urinary tract symptoms present (N40.0) Active confirmed He says he arises from sleep once or twice a night to urinate. I have discussed with him lifestyle modifications that could help reduce nocturia. Problem 806810710 Overweight (E66.3) Active confirmed He is very slightly overweight. We have discussed the effect of this on glycemic control. I recommended he stabilize his weight at this level and gradually redduce it with a target BMI of 23. 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 Conference of blood work with a hemoglobin A1c fasting lipids fasting glucose and microalbumin will be done tomorrow 11/18/2023 senior living (current) use of insulin (ICD-10 - Z79.4) We have discussed how to adjust his insulin depending upon his testing. 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 He is able to conduct all of the activities of daily living. 11/18/2023 Overweight (ICD-10 - E66.3) He is very slightly overweight. We have discussed the effect of this on glycemic control. I recommended he stabilize his weight at this level and gradually redduce it with a target BMI of 23. Plan Of Treatment Medication Medication Name Sig Start Date Stop Date Notes BD Pen Needle Ainsley U/F 32G X 4 MM as directed use as directed test once a day 08/22/2016 Accu-Chek Asya Plus - as directed In Vi tro test once a day 08/22/2016 Pen [place] 29G X 12MM as directed use a s directed use once a day 01/30/2015 Lantus SoloStar 100 UNIT/ML 40 units Sub cutaneous once a day 07/10/2023 Meloxicam 15 MG TAKE 1 TABLET BY YVAN TH EVERY DAY Oral Basaglar KwikPen 100 UNIT/ML as directed Subcutaneous once a day 07/10/2023 Pending Test Test Name Order Date PROFILE, FASTING (COMPREHENSIVE METABOLI C) 11/18/2023 PSA, TOTAL 11/18/2023 MICROALBUMIN, RANDOM 11/18/2023 CBC w DIFF 11/18/2023 Lipid Panel 11/18/2023 Hemoglobin A1c 11/18/2023 Next Appt Details Follow Up: 4 Months, Reason: OV review labs Provider Name:Gary Funez , 07/10/2025 09:30:00 AM, [address] [place] [address], [address], Progress Notes * Lazaro ROBERTS CDOB: 1 (53 yo M)Acc No.[id number]:11/18/2023 Progress Notes Patient: Lazaro Franklin Provider: Carolyne Funez MD :1970 A ge:53 Y S ex:Male Date:11/18/2023 Address:[address] [place] [address], [facility] Subjective: * Chief Complaints: * I nsulin-dependent diabetes mellitusOsteoarthritisBenign prostatic hypertrophy * HPI: C OVID-19 Screening: He returns for a scheduled visit to manage his arthritis and diabetes. He is currently taking 37 units of Lantus insulin. He is testing his fasting glucose levels may have been below 150. He has been to the hot sealing machine operator. X-rays of his hand show erosive arthritis. He is taking meloxicam when necessary.His renal function will be monitored. His blood work will be drawn this week. Questions H ave you experienced fever, chills, cough, sore throat, shortness of breath, difficulty breathing, muscle aches, loss of taste or smell? N o H ave you been exposed to the virus within the last 10 days? N o H ave you travelled internationally in the last 10 days? N o H ave you been exposed to COVID-19 in the past? Y es * ROS: G eneral/Constitutional: pain B oth hands and fingers, otherwise only normal aches and pains. C hills d enies. F atigue a dmits. F ever d enies. ? E NT: Decreased hearing d enies. R espiratory: Cough d enies. C ardiovascular: Chest pain with exertion d enies. D yspnea on exertion?denies. S hortness of breath d enies. G astrointestinal: Constipation o ccasional. D ecreased appetite d enies. D iarrhea d enies. H eartburn d enies. N ausea d enies. R ectal bleeding d enies. V omiting d enies. H ematology: bruising d enies. p etechiae d enies. S wollen glands n one have been noted. G enitourinary: Frequent urination o nce a night. M usculoskeletal: Muscle aches d enies. P ainful joints d enies. S ciatica d enies. W eakness d enies. S kin: Itching d enies. R alma d enies. S kin lesion(s)?denies. N eurologic: Difficulty speaking d enies. D izziness d enies.?Headache d enies. L ow back pain d enies. P sychiatric: Depressed mood d enies. * Medical History: * Surgical History: c olonoscopy, [facility], [facility], one tubular adenoma 07/15/2021 * Hospitalization/Major Diagno stic Procedure: D enies Past Hospitalization * Family History: F ather: , pancreatic cancer, diagnosed with Cancer. M other: , diagnosed with Cancer. 1 sister(s) - healthy. 2 son(s) - healthy. . His mother from bladder cancer. * Social History: T obacco Use: T obacco Use/Smoking P atient is a n onsmoker A dditional Findings: Tobacco Non-User A ggressive non-smoker Portia kaplan is working. He is to a nurse and they have children. He lives in [place], [place]. * Medications: T akingLantus SoloStar 100 UNIT/ML Solution Pen-injector 40 units Subcutaneous once a dayBasaglar KwikPen 100 UNIT/ML Solution Pen-injector as directed Subcutaneous once a dayBD Pen Needle Ainsley U/F 32G X 4 MM Miscellaneous as directed use as directed test once a dayAccu-Chek Asya Plus - Strip as directed In Vitro test once a dayPen [place] 29G X 12MM Miscellaneous as directed use as directed use once a dayMeloxicam 15 MG Tablet TAKE 1 TABLET BY MOUTH EVERY DAY Oral Medication List reviewed and reconciled with the patientTaking Lantus SoloStar 100 UNIT/ML Solution Pen- injector 40 units Subcutaneous once a dayTaking Basaglar KwikPen 100 UNIT/ML Solution Pen-injector as directed Subcutaneous once a dayTaking BD Pen Needle Ainsley U/F 32G X 4 MM Miscellaneous as directed use as directed test once a dayTaking Accu-Chek Asya Plus - Strip as directed In Vitro test once a dayTaking Pen [place] 29G X 12MM Miscellaneous as directed use as directed use once a dayTaking Meloxicam 15 MG Tablet TAKE 1 TABLET BY MOUTH EVERY DAY Oral Medication List reviewed and reconciled with the patient * Allergies: N o Known Drug Allergyno[Allergies Verified] Objective: * Vitals: H t: 71, Wt: 181, BMI:25.24, BP: 158/100, HR: 61, Temp: 97.8, Wt-k.1. * Examination: G eneral Examination: GENERAL APPEARANCE: p leasant, well nourished, well developed, in no acute distress, calm and relaxed , overweight , man. HEAD: a traumatic, normocephalic. EYES: e carlos, perrla, anicteric, conjugate. EARS: n ormal. NOSE: s eptum intact. ORAL CAVITY: n ormal, unremarkable. NECK/THYROID: n o jugular venous distention, no carotid bruit, thyroid normal. LYMPH NODES: n o enlarged lymph nodes,spleen normal. SKIN: n o suspicious lesions, anicteric. HEART: n o clicks, gallops, murmurs, or rubs, regular rhythm, S1, S2 normal, no s3, or vascular bruits. LUNGS: c lear to auscultation . BREASTS: no masses palpable bilaterally. ABDOMEN: b owel sounds normal, no ascites, no organomegaly, no mass, repaired right inguinal hernia, , overweight. RECTAL EXAM: n ot examined. MUSCULOSKELETAL: e xtremities unremarkable, no clubbing, cyanosis or edema, The joints of the hands and fingers. Normal but are painful to range of motion. PERIPHERAL PULSES: n ormal. NEUROLOGIC: a lert and oriented, cranial nerves 2-12 grossly intact, deep tendon reflexes 2+ symmetrical, motor strength normal upper and lower extremities, sensory exam intact. PSYCH: a lert, oriented. Assessment: * Assessment: 1. T ype 2 diabetes mellitus without complications - E11.9, He has been compliant with his insulin therapy. Conference of blood work with a hemoglobin A1c fasting lipids fasting glucose and microalbumin will be done tomorrow 2 . L luis eduardo term (current) use of insulin - Z79.4, We have discussed how to adjust his insulin depending upon his testing. 3 . 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 4 . 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 He is able to conduct all of the activities of daily living. 5 . O verweight - E66.3, He is very slightly overweight. We have discussed the effect of this on glycemic control. I recommended he stabilize his weight at this level and gradually redduce it with a target BMI of 23. Plan: * Treatment: 2. L luis eduardo term (current) use of insulin L AB: PSA, TOTAL L AB: MICROALBUMIN, RANDOM L AB: CBC w DIFF L AB: Lipid Panel L AB: Hemoglobin A1c 3. P rimary osteoarthritis, right hand L AB: PSA, TOTAL L AB: MICROALBUMIN, RANDOM L AB: CBC w DIFF L AB: Lipid Panel L AB: Hemoglobin A1c 4. P rimary osteoarthritis, left hand L AB: PSA, TOTAL L AB: MICROALBUMIN, RANDOM L AB: CBC w DIFF L AB: Lipid Panel L AB: Hemoglobin A1c 5. O thers Continue Lantus SoloStar Solution Pen-injector, 100 UNIT/ML, 40 units, Subcutaneous, once a day;?Continue Basaglar KwikPen Solution Pen-injector, 100 UNIT/ML, as directed, Subcutaneous, once a day; C ontinue BD Pen Needle Ainsley U/F Miscellaneous, 32G X 4 MM, as directed, use as directed, test once a day; C ontinue Accu-Chek Asya Plus Strip, -, as directed, In Vitro, test once a day; Continue Pen [place] Miscellaneous, 29G X 12MM, as directed, use as directed, use once a day;?Continue Meloxicam Tablet, 15 MG, TAKE 1 TABLET BY MOUTH EVERY DAY, Oral. * Procedure Codes: * Preventive Medicine: Counseling: C are goal follow-up plan: Counseling for abnormal BMI given Y es Above Normal BMI Follow-up D ietary management education, guidance, and counseling, Dietary needs education, Exercise promotion: strength training, Exercise promotion: stretching, Feeding regime, Giving encouragement to exercise, Lifestyle education regarding diet, Nutrition / feeding management, Nutrition therapy, Prescribed activity/exercise education, Prescribed diet education, Prescribed dietary intake, Special diet education, Weight monitoring , Intervention, Order not done: Medical or Other reason not done DM Care Plan: P atient Lifestyle Goals P atient wants to be able to manage diabetes without too much effort. T reatment Goals H bA1C < 7.0, Blood Sugars less than < 115. B arriers n o barriers. S elf-Managment Goals W ork on weight loss, with a goal of losing 1 lb per week, Take blood sugars twice daily and keep a log. Bring log in to next appointment, Increase exercise to 3 times a week for 30 mins, Stop drinking juice and/or soda, replace with more water. * Follow Up: 4 Months (Reason: OV review labs ) * Images: * Sign off status: Completed true * Provider: Carolyne Funez MD Date: 0 11/18/2023 Generated for Rodríguez jorgensen/Chris/Alexitting on: 06/25/2024 10:34 AM EST History and Physical Notes * HPI (History of Present Illness) Category Sub-Category Detail Notes COVID-19 Screening Questions Have you had any new onset fever, chills, cough, congestion, sore throat, shortness of breath, muscle aches?: No Have you been exposed to the virus with n the last 10 days?: No Have you travelled internationally in [facility] last 10 days?: No Have you been exposed to COVID-19 in the past?: Yes Examination Category Sub-Category Detail Notes General Examination GENERAL APPEARANCE: pleasant , well nourished, well developed, in no acute distress, calm and relaxed , overweight , man HEAD: atraumatic, normocep halic EYES: eomi, perrla, anicte cameron, conjugate EARS: normal NOSE: septum intact NECK/THYROID: no jugular venous di stention, no carotid bruit, thyroid normal HEART: no clicks, gallops, murmurs, or rubs, regular rhythm, S1, S2 normal, no s3, or vascular bruits LUNGS: clear to auscultatio n ABDOMEN: bowel sounds normal, no ascites, no organomegaly, no mass, repaired right inguinal hernia, , overweight NEUROLOGIC: alert and oriented, cranial nerves 2-12 grossly intact, deep tendon reflexes 2+ symmetrical, motor strength normal upper and lower extremities, sensory exam intact SKIN: no suspicious lesion s, anicteric PERIPHERAL PULSES: normal BREASTS: no masses palpable b ilaterally MUSCULOSKELETAL: extremities unremark able, no clubbing, cyanosis or edema, The joints of the hands and fingers. Normal but are painful to range of motion LYMPH NODES: no enlarged lymph no roberto carlos,spleen normal RECTAL EXAM: not examined PSYCH: alert, oriented ORAL CAVITY: normal, unremarkable
--- OUTSIDE RECORDS SUMMARY | 2024-02-19 07:15 | XMS_ITS ---
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 Gary Funez III Primary Care Provider REASON FOR VISIT annual exam Social History Sex Assigned At : Social History Observation Description Sex Assigned At Male Encounters Encounter Location Date Provider Diagnosis Gary Funez III, MD [address] [place] [address] [place] [address] 02/19/2024 Gary Funez Plan Of Treatment Next Appt Details Provider Name:Gary Funez , 07/10/2025 09:30:00 AM, [address] [place] [address] [place], [address], Progress Notes * Lazaro ROBERTS CDOB: 1 (55 yo M)Acc No.[id number]:02/19/2024 Progress Notes Patient: Asa BRUNOlorena Amaral Provider: Carolyne Funez MD :1970 A ge:53 Y S ex:Male Date:02/19/2024 Address:[address] [place], [place] [id number] Subjective: * Chief Complaints: * 1 . Annual exam. * Medical History: Objective: * Vitals: Assessment: Plan: * Treatment: * Images: * The named appointment provid er may or may not be the originator of this progress note, and it is not deemed complete until electronically signed by the appointment provider. Sign off status: Pending * Provider: Carolyne Funez MD Date: 0 02/19/2024 Generated for Rodríguez jorgensen/Chris/Carlos on: 1 06/25/2024 10:34 AM EST
--- OUTSIDE RECORDS SUMMARY | 2024-07-08 04:00 | XMS_ITS ---
Author Organization Gary Funez III, MD Address [address] [place] [address] [place] [address] Care Team Providers Care Missionary Coordinator Name Role Phone Dr. Gary Funez III Primary Care Provider Allergies Allergen (clinical drug ingredient) Drug/Non Drug Allergy documented on EMR Reaction Allergy Type Onset Date Status No Known Drug Allergy Unknown Drug Allergy Active Reason For Referral Reason Evaluate and Treat Optimize diabetic regimen Diagnosis 1 Type 2 diabetes pepe itus without complications (E11.9) Diagnosis 2 manager long term care (current) use of insulin (Z79.4) Referral Organization Gary Funez III, MD Referring Provider First Name Gary Referring Provider Last Name Armin Referring Provider Speciality Internal M edicine Referred Provider [facility], Endocrinology [facility] Referred Provider Specialty Endocrinolog y General Notes Carlita Paul 07/25/2024 01:51:04 PM > Referral faxed with progress noteHumberto Amber 09/27/2024 04:08:59 PM > Office stated they did not receive the referral. Referral refaxedHumberto Amber 11/16/2024 11:22:22 AM > Spoke with Hilaria at [facility] stated they have not received the referral. Fax number was confirmed and refaxedHumberto Amber 11/21/2024 02:52:59 PM > Spoke with Hilaria at [facility] they have received the referral but need the completed progress note done form 07/08/2024 signed and faxed to [phone] ATTN; Humberto Manrique Amber 11/24/2024 03:02:27 PM > Progress note was faxed to [facility], ATTN: Humberto ManriqueCarlita 12/21/2024 01:53:28 PM > Spoke with Hilaria at [facility] Endocr[facility] she stated they have the referral and progress note. They have reached out to the patient 2x and no call back from the patient. Patient was contacted and left a message providing [facility] Endocrinology and diabetes center number to call and schedule an appointment with their office as soon as possible. Referral Priority Routine Referral Appointment Date 02/06/2025 REASON FOR VISIT Osteoarthritis both hands, Onychomycosis right first toe, [facility], injection r wrist, [place], Insulin-dependent diabetes Medications Medication SIG (Take, Route, Frequency, Duration) Notes Start Date End Date Status BD Pen Needle Ainsley U/F 32G X 4 MM as directed use as directed test once a day 08/22/2016 Active Accu-Chek Asya Plus - as directed In Vi tro test once a day 08/22/2016 Active Basaglar KwikPen 100 UNIT/ML as directed Subcutaneous once a day 07/10/2023 Active Pen [place] 29G X 12MM as directed use a s directed use once a day 01/30/2015 Active Meloxicam 15 MG TAKE 1 TABLET BY YVAN TH EVERY DAY Oral Active Lantus SoloStar 100 UNIT/ML ADMINISTER 40 UNITS UNDER THE SKIN EVERY DAY Active Social History Tobacco Use: Social History Observation Description Date Details (start date - stop date) Never Smoker NA - NA Sex Assigned At : Social History Observation Description Sex Assigned At Male Tobacco Use/Smoking Question Answer Notes Patient is a nonsmoker Additional Findings: Tobacco Non-User Aggressive non-smoker Vital Signs Blood pressure systolic 140 mm Hg 07/08/19 25 Blood pressure diastolic 80 mm Hg 025 Heart Rate 72 /min 07/08/2024 Height 71 in 07/08/2024 Weight 171 lbs 07/08/2024 BMI 23.85 kg/m2 07/08/2024 Encounters Encounter Location Date Provider Diagnosis Gary Funez III, MD [address] [place] [address] [address] [place], [place] [address] 07/08/2024 Gary Funez Type 2 diabetes mellitus without complications E11.9 ; manager long term care (current) use of insulin Z79.4 ; Primary osteoarthritis, right hand M19.041 ; Primary osteoarthritis, left hand M19.042 and Benign prostatic hyperplasia, unspecified whether lower urinary tract symptoms present N40.0 Assessments Encounter Date Diagnosis (ICD Code) Assessment Notes Treat ment Notes Treatment Clinical Notes 07/08/2024 Type 2 diabetes mellitus without complications (ICD-10 - E11.9) For the first time today he has been willing to consider more modern therapy for controlling of insulin-dependent diabetes such as a sensor and basal insulin. I have referred him to endocrinology to make this happen. I have been unsuccessful in managing his diabetes. His most recent A1c is 9.3. 07/08/2024 manager long term care (current) use of insulin (ICD-10 - Z79.4) We have discussed how to adjust his insulin depending upon his testing. 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 07/08/2024 Primary osteoarthritis, left hand (ICD-10 - M19.042) He will continue with the fiberglass insulation installer. He is able to conduct all of the activities of daily living. 07/08/2024 Benign prostatic hyperplasia, unspecified whether lower urinary tract symptoms present (ICD-10 - N40.0) He says he arises from sleep once or twice a night to urinate. I have discussed with him lifestyle modifications that could help reduce nocturia. Plan Of Treatment Medication Medication Name Sig Start Date Stop Date Notes BD Pen Needle Ainsley U/F 32G X 4 MM as directed use as directed test once a day 08/22/2016 Accu-Chek Asya Plus - as directed In Vi tro test once a day 08/22/2016 Basaglar KwikPen 100 UNIT/ML as directed Subcutaneous once a day 07/10/2023 Pen [place] 29G X 12MM as directed use a s directed use once a day 01/30/2015 Meloxicam 15 MG TAKE 1 TABLET BY YVAN TH EVERY DAY Oral Lantus SoloStar 100 UNIT/ML ADMINISTER 4 0 UNITS UNDER THE SKIN EVERY DAY Pending Test Test Name Order Date PROFILE, FASTING (COMPREHENSIVE METABOLI C) 07/08/2024 CBC WITH AUTO DIFF 07/08/2024 Lipid Panel 07/08/2024 Hemoglobin A1c 07/08/2024 Referrals Referral Date Details 07/08/2024 07/08/2024, Evaluate and Treat Optimize diabetic regimen, Endocrinology & Diabetes Center [facility] Next Appt Details Follow Up: 4 Months, Reason: OV Provider Name:Gary Chase Armin , 07/10/2025 09:30:00 AM, [address] [place] [address] [place], [address], Progress Notes * Lazaro ROBERTS CDOB: 1 (54 yo M)Acc No.[id number]:07/08/2024 Progress Notes Patient: Lazaro BRUNO Provider: Carolyne Funez MD :1970 A ge:54 Y S ex:Male Date:07/08/2024 Address:[address] [place] [address], [id number] Subjective: * Chief Complaints: * O steoarthritis both handsOnychomycosis right first toeStem cell institute, injection r wrist, [place]-dependent diabetes * HPI: D epression Screening: He returns for a periodic scheduled visit to manage his diabetes and arthritis. He has severe arthritis of the joints of the fingers on both hands. He was referred to rheumatology and after evaluation was told there was nothing that could be done.? He is able to sign his name and button buttons but has deformity of most of his finger joints His A1c was 9.4. I have referred to endocrinology to obtain better control of his diabetes I hope he can be given a Dexon monitor or an insulin pump appropriate oral regimen in addition to his iInjected glargine insulin. PHQ-9 L ittle interest or pleasure in doing things?Not at all F eeling down, depressed, or hopeless N ot at all T rouble falling or staying asleep, or sleeping too much N ot at all F eeling tired or having little energy N ot at all P oor appetite or overeating N ot at all F eeling bad about yourself or that you are a failure, or have let yourself or your family down N ot at all T rouble concentrating on things, such as reading the newspaper or watching television N ot at all M oving or speaking so slowly that other people could have noticed; or the opposite, being so fidgety or restless that you have been moving around a lot more than usual N ot at all T houghts that you would be better off or of hurting yourself in some way N ot at all T otal Score 0 C OVID-19 Screening: Questions H ave you had any new onset fever, chills, cough, congestion, sore throat, shortness of breath, muscle aches? N o patient stated he has a stuffy nose, believes could be a start of a cold. S MICHAEL Questions: SDOH Questions I n the past year have you been worried about losing your housing? N o I n the past year have you or any family members you live with been unable to get any of the following when it was really needed? Check all that apply: N one * ROS: G eneral/Constitutional: pain F ingers and hands. C hills d enies. F atigue a dmits. F ever d enies. E NT: Decreased hearing d enies. R [...] have been noted. G enitourinary: Frequent urination t wice a night. M usculoskeletal: Muscle aches d [...] c olonoscopy, [facility], [facility], one tubular adenoma 07/15/2021Hernia repair by Dr Peterson 07/2023 * Hospitalization/Major Diagno stic Procedure: D enies Past Hospitalization * Family History: F ather: , pancreatic cancer, diagnosed with Cancer. M other: , diagnosed with Cancer. 1 sister(s) - healthy. 2 son(s) - healthy. . His mother from bladder cancer. * Social History: T obacco Use: T obacco Use/Smoking P atient is a n onsmoker A dditional Findings: Tobacco Non-User A ggressive non-smoker H eusebio is working. He is to a nurse and they have children. He lives in [place], [place]. * Medications: T akingBD Pen Needle Ainsley U/F 32G X 4 MM Miscellaneous as directed use as directed test once a day Accu-Chek Asya Plus - Strip as directed In Vitro test once a day Pen [place] 29G X 12MM Miscellaneous as directed use as directed use once a day Meloxicam 15 MG Tablet TAKE 1 TABLET BY MOUTH EVERY DAY Oral Lantus SoloStar 100 UNIT/ML Solution Pen-injector ADMINISTER 40 UNITS UNDER THE SKIN EVERY DAY Medication List reviewed and reconciled with the patientTaking BD Pen Needle Ainsley U/F 32G X 4 MM Miscellaneous as directed use as directed test once a day Taking Accu-Chek Asya Plus - Strip as directed In Vitro test once a day Taking Pen [place] 29G X 12MM Miscellaneous as directed use as directed use once a day Taking Meloxicam 15 MG Tablet TAKE 1 TABLET BY MOUTH EVERY DAY Oral Taking Lantus SoloStar 100 UNIT/ML Solution Pen-injector ADMINISTER 40 UNITS UNDER THE SKIN EVERY DAY Medication List reviewed and reconciled with the patient * Allergies: N o Known Drug Allergyno[Allergies Verified] Objective: * Vitals: H t: 71, Wt: 171, BMI:23.85, BP: 140/80, HR: 72, Wt-k.56. * P ast Orders: Lab:Complete Blood Count Aut o Diff * Collection Date 07/05/2024 11/26/2023 07/14/2023 Collection Time 07:09 AM 07:40 AM 07:36 AM Order Date 07/05/2024 11/26/2023 07/14/2023 White Blood Count 6.0 (Ref Range: 4.8-10.8 X10*3/uL) 4.0 L (Ref Range: 4.8-10.8 X10*3/uL) 5.2 (Ref Range: 4.8-10.8 X10*3/uL) Red Blood Count 5.18 (Ref Range: 4.60-5.80 X10*6/uL) 5.12 (Ref Range: 4.60-5.80 X10*6/uL) 5.30 (Ref Range: 4.60-5.80 X10*6/uL) Hemoglobin 15.7 (Ref Range: 14.0-18.0 g/dl) 15.8 (Ref Range: 14.0-18.0 g/dl) 16.2 (Ref Range: 14.0-18.0 g/dl) Hematocrit 44.8 (Ref Range: 42.0-52.0 %) 45.7 (Ref Range: 42.0-52.0 %) 46.2 (Ref Range: 42.0-52.0 %) Mean Corpuscular Volume 86.5 (Ref Range: 80.0-98.0 fL) 89.3 (Ref Range: 80.0-98.0 fL) 87.2 (Ref Range: 80.0-98.0 fL) Mean Corpuscular Hemoglobin 30.3 (Ref Range: 27.0-33.0 pg) 30.9 (Ref Range: 27.0-33.0 pg) 30.6 (Ref Range: 27.0-33.0 pg) Mean Corpuscular HGB Conc 35.0 (Ref Range: 31.0-36.0 g/dl) 34.6 (Ref Range: 31.0-36.0 g/dl) 35.1 (Ref Range: 31.0-36.0 g/dl) Red Cell Distribution Width 12.2 (Ref Range: 11.0-16.0 %) 12.4 (Ref Range: 11.0-16.0 %) 11.9 (Ref Range: 11.0-16.0 %) Platelet Count 293 (Ref Range: 160-400 X10*3/uL) 253 (Ref Range: 160-400 X10*3/uL) 232 (Ref Range: 160-400 X10*3/uL) Mean Platelet Volume 9.9 (Ref Range: 9.4-12.4 fL) 9.5 (Ref Range: 9.4-12.4 fL) 9.2 L (Ref Range: 9.4-12.4 fL) Neutrophils Percent Auto 59.8 (Ref Range: 45-73 %) 42.5 L (Ref Range: 45-73 %) 55.7 (Ref Range: 45-73 %) Imm Gran Pct Auto 0.2 (Ref Range: 0.0-0.4 %) 0.0 (Ref Range: 0.0-0.4 %) 0.2 (Ref Range: 0.0-0.4 %) Lymphocytes Percent Auto 24.6 (Ref Range: 20-40 %) 38.4 (Ref Range: 20-40 %) 29.7 (Ref Range: 20-40 %) Monocytes Percent Auto 10.6 (Ref Range: 2-11 %) 13.2 H (Ref Range: 2-11 %) 10.5 (Ref Range: 2-11 %) Eosinophils Percent Auto 4.0 (Ref Range: 0-4 %) 4.7 H (Ref Range: 0-4 %) 2.9 (Ref Range: 0-4 %) Basophils Percent Auto 0.8 (Ref Range: 0-2 %) 1.2 (Ref Range: 0-2 %) 1.0 (Ref Range: 0-2 %) NRBC Pct Auto 0.0 (Ref Range: 0.0-0.2 /100WBC) 0.0 (Ref Range: 0.0-0.2 /100WBC) 0.0 (Ref Range: 0.0-0.2 /100WBC) Neutrophils Absolute Auto 3.6 (Ref Range: 2.0-8.3 x10*3/uL) 1.7 L (Ref Range: 2.0-8.3 x10*3/uL) 2.9 (Ref Range: 2.0-8.3 x10*3/uL) Imm Gran Abs Auto 0.01 (Ref Range: 0.00-0.03 X10*3/uL) 0.00 (Ref Range: 0.00-0.03 X10*3/uL) 0.01 (Ref Range: 0.00-0.03 X10*3/uL) Lymphocytes Absolute Auto 1.5 (Ref Range: 1.2-4.9 X10*3/uL) 1.5 (Ref Range: 1.2-4.9 X10*3/uL) 1.5 (Ref Range: 1.2-4.9 X10*3/uL) Monocytes Absolute Auto 0.6 (Ref Range: 0.1-1.2 X10*3/uL) 0.5 (Ref Range: 0.1-1.2 X10*3/uL) 0.5 (Ref Range: 0.1-1.2 X10*3/uL) Eosinophils Absolute Auto 0.2 (Ref Range: 0.0-0.4 X10*3/uL) 0.2 (Ref Range: 0.0-0.4 X10*3/uL) 0.2 (Ref Range: 0.0-0.4 X10*3/uL) Basophils Absolute Auto 0.1 (Ref Range: 0.0-0.2 X10*3/uL) 0.1 (Ref Range: 0.0-0.2 X10*3/uL) 0.1 (Ref Range: 0.0-0.2 X10*3/uL) NRBC Abs Auto 0.000 (Ref Range: 0.0-0.012 X10*3/uL) 0.000 (Ref Range: 0.0-0.012 X10*3/uL) 0.000 (Ref Range: 0.0-0.012 X10*3/uL) * Lab:[facility] Fast * Collection Date 07/05/2024 11/26/2023 07/14/2023 Collection Time 07:09 AM 07:40 AM 07:36 AM Order Date 07/05/2024 11/26/2023 07/14/2023 Sodium 140 (Ref Range: 135-145 mmol/L) 140 (Ref Range: 135-145 mmol/L) 138 (Ref Range: 135-145 mmol/L) Bilirubin Total 0.5 (Ref Range: 0.0-1.0 mg/dL) 0.7 (Ref Range: 0.0-1.0 mg/dL) 0.7 (Ref Range: 0.0-1.0 mg/dL) Aspartate Amino Transferase 47 H (Ref Range: 5-37 U/L) 25 (Ref Range: 5-37 U/L) 29 (Ref Range: 5-37 U/L) Alanine Aminotransferase 40 (Ref Range: 0-40 U/L) 30 (Ref Range: 0-40 U/L) 31 (Ref Range: 0-40 U/L) Total Protein 7.2 (Ref Range: 6.5-8.0 g/dL) 7.0 (Ref Range: 6.5-8.0 g/dL) 7.1 (Ref Range: 6.5-8.0 g/dL) Albumin Level 4.4 (Ref Range: 3.5-5.0 g/dL) 4.2 (Ref Range: 3.5-5.0 g/dL) 4.3 (Ref Range: 3.5-5.0 g/dL) Alkaline Phosphatase 91 (Ref Range: 39-117 U/L) 82 (Ref Range: 39-117 U/L) 75 (Ref Range: 39-117 U/L) Potassium 3.7 (Ref Range: 3.3-5.1 mmol/L) 4.7 (Ref Range: 3.3-5.1 mmol/L) 3.9 (Ref Range: 3.3-5.1 mmol/L) Chloride 106 (Ref Range: 96-108 mmol/L) 105 (Ref Range: 96-108 mmol/L) 103 (Ref Range: 96-108 mmol/L) Carbon Dioxide 26 (Ref Range: 22-29 mmol/L) 26 (Ref Range: 22-29 mmol/L) 27 (Ref Range: 22-29 mmol/L) Anion Gap 12 (Ref Range: 12-20) 14 (Ref Range: 12-20) 12 (Ref Range: 12-20) Blood Urea Nitrogen 17 H (Ref Range: 9-16 mg/dL) 19 H (Ref Range: 9-16 mg/dL) 19 H (Ref Range: 9-16 mg/dL) Creatinine 0.74 (Ref Range: 0.5-1.4 mg/dL) 0.77 (Ref Range: 0.5-1.4 mg/dL) 0.72 (Ref Range: 0.5-1.4 mg/dL) Estimated Glomerular Filt Rate > 60 > 60 > 60 Glucose Fasting 67 (Ref Range: 60-99 mg/dL) 138 H (Ref Range: 60-99 mg/dL) 82 (Ref Range: 60-99 mg/dL) Calcium 9.5 (Ref Range: 8.4-10.2 mg/dL) 9.4 (Ref Range: 8.4-10.2 mg/dL) 9.7 (Ref Range: 8.4-10.2 mg/dL) * Lab:Lipid Panel * Collection Date 07/05/2024 11/26/2023 07/14/2023 Collection Time 07:09 AM 07:40 AM 07:36 AM Order Date 07/05/2024 11/26/2023 07/14/2023 Triglycerides 45 (Ref Range: <150 mg/dL) 41 (Ref Range: <150 mg/dL) 41 (Ref Range: <150 mg/dL) Cholesterol 231 H (Ref Range: <200 mg/dL) 223 H (Ref Range: <200 mg/dL) 213 H (Ref Range: <200 mg/dL) LDL Cholesterol Calculated 120 H (Ref Range: <100 mg/dL) 114 H (Ref Range: <100 mg/dL) 112 H (Ref Range: <100 mg/dL) HDL Cholesterol 102 (Ref Range: >40 mg/dL) 101 (Ref Range: >40 mg/dL) 93 (Ref Range: >40 mg/dL) * Lab:Microalbumin, Random * Collection Date 07/05/2024 11/26/2023 07/14/2023 Collection Time 07:10 AM 07:40 AM 07:35 AM Order Date 07/05/2024 11/26/2023 07/14/2023 Creatinine Urine 93.87 (Ref Range: mg/dL) 123.02 (Ref Range: mg/dL) 19.94 (Ref Range: mg/dL) Microalbumin Urine 23.0 (Ref Range: mg/L) 23.0 (Ref Range: mg/L) 5.0 (Ref Range: mg/L) Microalbum Creatinine Ratio Ur 24.5 (Ref Range: <30 ug/mg cr) 18.6 (Ref Range: <30 ug/mg cr) 25.0 (Ref Range: <30 ug/mg cr) * Lab:Hemoglobin A1c * Collection Date 07/05/2024 11/26/2023 07/14/2023 Collection Time 07:09 AM 07:40 AM 07:36 AM Order Date 07/05/2024 11/26/2023 07/14/2023 Hemoglobin A1c % 9.3 H (Ref Range: <6.0 %) 9.2 H (Ref Range: <6.0 %) 9.0 H (Ref Range: <6.0 %) Estimated Average Glucose 220 (Ref Range: mg/dL) 217 (Ref Range: mg/dL) 212 (Ref Range: mg/dL) * Examination: G eneral Examination: GENERAL APPEARANCE: p carolin, well nourished, well developed, in no acute distress, calm and relaxed, thin, man. HEAD: a traumatic, normocephalic. EYES: e [...] sounds normal, no ascites, no organomegaly, no mass. RECTAL EXAM: n ot examined. MUSCULOSKELETAL: no clubbing, cyanosis or edema, Significant deforming arthritic changes of the fingers of both hands,. PERIPHERAL PULSES: n ormal. NEUROLOGIC: a lert and oriented, cranial nerves 2-12 grossly intact, deep tendon reflexes 2+ symmetrical, motor strength normal upper and lower extremities, sensory exam intact. PSYCH: a lert, oriented. Assessment: * Assessment: 1. T ype 2 diabetes mellitus without complications - E11.9 (Primary) N otes :For the first time today he has been willing to consider more modern therapy for controlling of insulin-dependent diabetes such as a sensor and basal insulin. I have referred him to endocrinology to make this happen. I have been unsuccessful in managing his diabetes. His most recent A1c is 9.3. 2 . L luis eduardo term (current) use of insulin - Z79.4 N otes :We have discussed how to adjust his insulin depending upon his testing. 3 . 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 4 . P rimary osteoarthritis, left hand - M19.042 N otes :He will continue with the fiberglass insulation installer. He is able to conduct all of the activities of daily living. 5 . B enign prostatic hyperplasia, unspecified whether lower urinary tract symptoms present - N40.0 N otes :He says he arises from sleep once or twice a night to urinate. I have discussed with him lifestyle modifications that could help reduce nocturia. Plan: * Treatment: 2. L luis eduardo term (current) use of insulin Referral To:Endocrinology & Diabetes Center [facility] Endocrinology Reason:Evaluate and Treat Optimize diabetic regimen 3. O thers Continue Lantus SoloStar Solution Pen-injector, 100 UNIT/ML, ADMINISTER 40 UNITS UNDER THE SKIN EVERY DAY; C ontinue Basaglar KwikPen Solution Pen-injector, 100 UNIT/ML, as directed, Subcutaneous, once a day; C ontinue BD Pen Needle Ainsley U/F Miscellaneous, 32G X 4 MM, as directed, use as directed, test once a day; C ontinue Accu-Chek Asya Plus Strip, -, as directed, In Vitro, test once a day; C ontinue Pen [place] Miscellaneous, 29G X 12MM, as directed, use as directed, use once a day; C ontinue Meloxicam Tablet, 15 MG, TAKE 1 TABLET BY MOUTH EVERY DAY, Oral. * Procedure Codes: * Preventive Medicine: DM Care Plan: P atient Lifestyle Goals P atient wants to be able to manage diabetes without too much effort. T reatment Goals H bA1C < 7.0, Blood Sugars less than < 115. B arriers n o barriers. S elf-Managment Goals T peña blood sugars twice daily and keep a log. Bring log in to next appointment, Increase exercise to 3 times a week for 30 mins, Stop drinking juice and/or soda, replace with more water. * Follow Up: 4 Months (Reason: OV) * Images: * Sign off status: Completed true * Provider: Carolyne Funez MD Date: 0 07/08/2024 Generated for Rodríguez jorgensen/Chris/Alexitting on: 06/25/2024 10:32 AM EST History and Physical Notes * HPI (History of Present Illness) Category Sub-Category Detail Notes Depression Screening PHQ-9 Little inte rest or pleasure in doing things: Not at all Feeling down, depressed, or hopeless: No t at all Trouble falling or staying asleep, or sl eeping too much: Not at all Feeling tired or having little energy: N ot at all Poor appetite or overeating: Not at all Feeling bad about yourself o r that you are a failure, or have let yourself or your family down: Not at all Trouble concentrating on thi ngs, such as reading the newspaper or watching television: Not at all Moving or speaking so slowly that other people could have noticed; or the opposite, being so fidgety or restless that you have been moving around a lot more than usual: Not at all Thoughts that you would be b immanuel off or of hurting yourself in some way: Not at all Total Score: 0 COVID-19 Screening Questions Have you had any new onset fever, chills, cough, congestion, sore throat, shortness of breath, muscle aches?: No patient stated he has a stuffy nose, believes could be a start of a cold. SDOH Questions SDOH Questions In the past year have you been worried about losing your housing?: No In the past year have you or any family members you live with been unable to get any of the following when it was really needed? Check all that apply:: None Examination Category Sub-Category Detail Notes General Examination GENERAL APPEARANCE: pleasant , well nourished, well developed, in no acute distress, calm and relaxed, thin, man HEAD: atraumatic, normocep halic EYES: eomi, [...] BREASTS: no masses palpable b ilaterally MUSCULOSKELETAL: no clubbing, cyanosi s or edema, Significant deforming arthritic changes of the fingers of both hands, LYMPH NODES: no enlarged lymph no roberto carlos,spleen normal RECTAL EXAM: not examined PSYCH: alert, oriented ORAL CAVITY: normal, unremarkable Consultation Request Notes Referral Date Referring Provider Referred Provider Not es 07/08/2024 Gary Funez [facility], Endocrinology & Diabetes Center Evaluate and Treat Optimize diabetic regimen
--- OUTSIDE RECORDS SUMMARY | 2024-08-31 10:37 | XMS_ITS ---
Author Organization Gary Funez III, MD Address [address] [place] [address] [place] [address] Care Team Providers Care Bed Laster Name Role Phone Dr. Gary Funez III Primary Care Provider [phone] REASON FOR VISIT Rx Transfer Medications Medication SIG (Take, Route, Frequency, Duration) Notes Start Date End Date Status Lantus SoloStar 100 UNIT/ML ADMINISTER 40 UNITS UNDER THE SKIN EVERY DAY Subcutaneous daily for 30 days DX: E11.9 Diabetes Active Social History Sex Assigned At : Social History Observation Description Sex Assigned At Male Encounters Encounter Location Date Provider Diagnosis Gary Funez III, MD [address] [place] [address] [place] [address] 08/31/2024 Gary Funez Plan Of Treatment Medication Medication Name Sig Start Date Stop Date Notes Lantus SoloStar 100 UNIT/ML ADMINISTER 40 UNITS UNDER THE SKIN EVERY DAY Subcutaneous daily for 30 days DX: E11.9 Diabetes Next Appt Details Provider Name:Gary Funez , 07/10/2025 09:30:00 AM, [address] [place] [address] [place], [address], Progress Notes * Lazaro ROBERTS CDOB: 1 (54 yo M)Acc No.[id number]:08/31/2024 Patient: Bonifacio Lazaro COLEY :1970 A ge:54 Y S ex:Male Address:[address], [place] [address] * Refills Refill Lantus SoloStar Solution Pen-injector, 100 UNIT/ML, Subcutaneous, 12 Milliliter, ADMINISTER 40 UNITS UNDER THE SKIN EVERY DAY, daily, 30 days, Refills=11 * true * Date: Generated for Rodríguez jorgensen/Chirs/Carlos on: 06/25/2024 10:33 AM EST
--- OUTSIDE RECORDS SUMMARY | 2024-11-11 13:15 | XMS_ITS ---
Author Organization Gary Funez III, MD Address [address] [place] [address] [place] [address] Care Team Providers Care Sisal Operator Name Role Phone Dr. Gary Funez III Primary Care Provider [phone] REASON FOR VISIT Follow up Social History Sex Assigned At : Social History Observation Description Sex Assigned At Male Encounters Encounter Location Date Provider Diagnosis Gary Funez III, MD [address] [place] [address] [place] [address] 11/11/2024 Gary Funez Plan Of Treatment Next Appt Details Provider Name:Gary Funez , 07/10/2025 09:30:00 AM, [address] [place] [address] [place], [address], Progress Notes * Lazaro ROBERTS CDOB: 1 (55 yo M)Acc No.[id number]:11/11/2024 Progress Notes Patient: Asa BRUNOlorena Amaral Provider: Carolyne Funez MD :1970 A ge:54 Y S ex:Male Date:11/11/2024 Address:[address] [place], [place] [address] Subjective: * Chief Complaints: * 1 . Follow up. * Medical History: Objective: * Vitals: Assessment: Plan: * Treatment: * Images: * The named appointment provid er may or may not be the originator of this progress note, and it is not deemed complete until electronically signed by the appointment provider. Sign off status: Pending * Provider: Carolyne Funez MD Date: 0 11/11/2024 Generated for Rodríguez jorgensen/Chris/Carlos on: 1 06/25/2024 10:34 AM EST
--- OUTSIDE RECORDS SUMMARY | 2024-11-29 09:48 | XMS_ITS ---
Author Organization Gary Funez III, MD Address [address] [place] [address] [place] [address] Care Team Providers Care Fabric And Accessories Estimator Name Role Phone Dr. Gary Funez III Primary Care Provider [phone] REASON FOR VISIT PA needed for Semglee insulin pen Medications Medication SIG (Take, Route, Frequency, Duration) Notes Start Date End Date Status Semglee (yfgn) 100 UNIT/ML 38 units once a day Subcutaneous once a day for 30 days 11/29/2024 Active Social History Sex Assigned At : Social History Observation Description Sex Assigned At Male Encounters Encounter Location Date Provider Diagnosis Gary Funez III, MD [address] [place] [address] [place] [address] 11/29/2024 Gary Funez Plan Of Treatment Medication Medication Name Sig Start Date Stop Date Notes Semglee (yfgn) 100 UNIT/ML 38 units once a day Subcutaneous once a day for 30 days 11/29/2024 Basaglar KwikPen 100 UNIT/ML as directed Subcutaneous once a day 07/10/2023 Lantus SoloStar 100 UNIT/ML ADMINISTER 40 UNITS UNDER THE SKIN EVERY DAY Subcutaneous daily DX: E11.9 Diabete s Next Appt Details Provider Name:Gary Funez , 07/10/2025 09:30:00 AM, [address] [place] [address] [place], [address], Progress Notes * Lazaro ROBERTS CDOB: 1 (54 yo M)Acc No.[id number]:11/29/2024 Patient: Lazaro BRUNO :1970 A ge:54 Y S ex:Male Address:[address] [place] [address], [place] [address] * Refills Stop Lantus SoloStar Solution Pen-injector, 100 UNIT/ML, Subcutaneous, ADMINISTER 40 UNITS UNDER THE SKIN EVERY DAY, daily Stop Basaglar KwikPen Solution Pen-injector, 100 UNIT/ML, Subcutaneous, as directed, once a day Start Semglee (yfgn) Solution Pen-injector, 100 UNIT/ML, Subcutaneous, 4 Each, 38 units once a day, once a day, 30 days, Refills=11 Subjective: * Chief Complaints: * P A needed for Semglee insulin pen * Medical History: * Surgical History: * Hospitalization/Major Diagno stic Procedure: * Medications: Objective: * Vitals: * Physical Examination: Assessment: Plan: * Treatment: * Procedure Codes: * true * Date: Generated for Rodríguez jorgensen/Chris/Ashleysmitting on: 06/25/2024 10:34 AM EST
--- OUTSIDE RECORDS SUMMARY | 2024-12-01 04:30 | XMS_ITS ---
Author Organization Gary Funez III, MD Address [address] [facility] [address] [place] [address] Care Team Providers Care Account Developer Name Role Phone Dr. Gary Funez III Primary Care Provider Allergies Allergen (clinical drug ingredient) Drug/Non Drug Allergy documented on EMR Reaction Allergy Type Onset Date Status No Known Drug Allergy Unknown Drug Allergy Active REASON FOR VISIT Insulin-dependent diabetes, half-way SEMGLEE user, currently 38 units daily, Long-term use of insulin (current), Osteoarthritis both hands and fingers, Benign prostatic hypertrophy Medications Medication SIG (Take, Route, Frequency, Duration) Notes Start Date End Date Status BD Pen Needle Ainsley U/F 32G X 4 MM as directed use as directed test once a day 08/22/2016 Active Semglee (yfgn) 100 UNIT/ML 38 units once a day Subcutaneous once a day 11/29/2024 Active Pen [place] 29G X 12MM as directed use a s directed use once a day 01/30/2015 Active Accu-Chek Asya Plus - as directed In Vi tro test once a day 08/22/2016 Active Social History Tobacco Use: Social History [...] Problem Status W/U Status Risk Notes Problem [id number] Chest pain, unspecified type (R07.9) Active confirmed A chest x-ray has been ordered to evaluate his atypical chest pain. Problem 082761023 Shortness of breath (R06.02) Active confirmed His oxygen saturation is normal. I have ordered chest x-ray. Quite comfortable Vital Signs Temperature 97.6 degrees Fahrenheit 12/02/19 25 Blood pressure systolic 134 mm Hg 12/02/19 25 Blood pressure diastolic 76 mm Hg 025 Heart Rate 63 /min 12/01/2024 Height 71 in 12/01/2024 Weight 174 lbs 12/01/2024 BMI 24.27 kg/m2 12/01/2024 Oximetry 97 % 12/01/2024 Encounters Encounter Location Date Provider Diagnosis Gary Funez III, MD [address] [place] [address] DR [place], [place] [address] 12/01/2024 Gary Funez Chest pain, unspecif ied type R07.9 ; Shortness of breath R06.02 ; Type 2 diabetes mellitus without complications E11.9 ; salvage determiner (current) use of insulin Z79.4 ; Primary osteoarthritis, right hand M19.041 ; Primary osteoarthritis, left hand M19.042 and Benign prostatic hyperplasia, unspecified whether lower urinary tract symptoms present N40.0 Assessments Encounter Date Diagnosis (ICD Code) Assessment Notes Treat ment Notes Treatment Clinical Notes 12/01/2024 Chest pain, unspecified type (ICD-10 - R07.9) A chest x-ray has been ordered to evaluate his atypical chest pain. 12/01/2024 Shortness of breath (ICD-10 - R06.02) His oxygen saturation is normal. I have ordered chest x-ray. Quite comfortable 12/01/2024 Type 2 diabetes mellitus without complications (ICD-10 - E11.9) For the first time today he has been willing to consider more modern therapy for controlling of insulin-dependent diabetes such as a sensor and basal insulin. I have referred him to endocrinology to make this happen. I have been unsuccessful in managing his diabetes. His most recent A1c is 9.5. I have increased his SEMGLEE by 10 units. 12/01/2024 half-way (current) use of insulin (ICD-10 - Z79.4) We have discussed how to adjust his insulin depending upon his testing. 12/01/2024 Primary osteoarthritis, right hand (ICD-10 - M19.041) He will continue with the process improvement analyst. 12/01/2024 Primary osteoarthritis, left hand (ICD-10 - M19.042) He will continue with the process improvement analyst. He is able to conduct all of the activities of daily living. 12/01/2024 Benign prostatic hyperplasia, unspecified whether lower urinary [...] as directed test once a day 08/22/2016 Semglee (yfgn) 100 UNIT/ML 38 units once a day Subcutaneous once a day 11/29/2024 Pen [place] 29G X 12MM as directed use a s directed use once a day 01/30/2015 Accu-Chek Asya Plus - as directed In Vi tro test once a day 08/22/2016 Pending Test Test Name Order Date XR CHEST 2 VIEW PA & LAT 12/01/2024 Testosterone, Total 12/01/2024 Next Appt Details Follow Up: 3 weeks, Reason: ov review testoterone level and CXR done at Provider Name:Gary Funez , 07/10/2025 09:30:00 AM, [address] [place] [address] DR [facility] [place], [place], [address], Progress Notes * ARMANDO Lazaro CDOB: 1 (54 yo M)Acc No.[id number]:12/01/2024 Progress Notes Patient: Lazaro BRUNO C Provider: Carolyne Funez MD :1970 A ge:54 Y S ex:Male Date:12/01/2024 Address:[address] [place] [address], [id number] Subjective: * Chief Complaints: * I nsulin-dependent diabetesLong term SEMGLEE user, currently 38 units dailyLong- term use of insulin (current)Osteoarthritis both hands and fingersBenign prostatic hypertrophy * HPI: C OVID-19 Screening: He returns for medical management of his numerous issues and diabetes. He has recently developed deforming arthritis of the fingers of both hands which are painful and limited his ability to work. He has been referred to rheumatology which is involved in his care. He says he has not had much relief so far. He has agreed to a referral to endocrinology and we have maintained him referral. He has received a call from the outpatient program coordinator office, Dr. Ragsdale, but he has not returned the call. We discussed the importance of this at length today. I have increased his SEMGLEE by 10 units today. Medication without side effects. His myoglobins that he will be odpcg-la-nwl-art monitoring as well as medication. He has been poorly controlled recently.He has noted some chest pain at rest associated with some shortness of breath which is intermittent and not related to exertion. I ordered a chest x-ray. His oxygen saturation is normal. Questions H ave you had any new onset fever, chills, cough, congestion, sore throat, shortness of breath, muscle aches? N o * ROS: G eneral/Constitutional: pain A rthritic pain from the joints of his fingers on both hands. C hills d enies. F atigue [...] Muscle aches d enies. P ainful joints B oth hands and fingers. S ciatica d enies. W eakness d enies. S kin: Itching d enies. R alma d enies. S kin lesion(s)?denies. N eurologic: Difficulty speaking d enies. D izziness d enies.?Headache d enies. L ow back pain d enies. P sychiatric: Depressed mood d enies. * Medical History: * Surgical History: c olonoscopy, [facility], [place], one tubular adenoma 07/15/2021Hernia repair by [...] Findings: Tobacco Non-User A ggressive non-smoker H e is working. He is to a nurse and they have children. He lives in [place], [place]. * Medications: T akingBD Pen Needle Ainsley U/F 32G X 4 MM Miscellaneous as directed use as directed test once a day Accu-Chek Asya Plus - Strip as directed In Vitro test once a day Pen [place] 29G X 12MM Miscellaneous as directed use as directed use once a day Semglee (yfgn) 100 UNIT/ML Solution Pen-injector 38 units once a day Subcutaneous once a day Taking BD Pen Needle Ainsley U/F 32G X 4 MM Miscellaneous as directed use as directed test once a day Taking Accu-Chek Asya Plus - Strip as directed In Vitro test once a day Taking Pen [place] 29G X 12MM Miscellaneous as directed use as directed use once a day Taking Semglee (yfgn) 100 UNIT/ML Solution Pen-injector 38 units once a day Subcutaneous once a day DiscontinuedMeloxicam 15 MG Tablet TAKE 1 TABLET BY MOUTH EVERY DAY Oral Medication List reviewed and reconciled with the patientDiscontinued Meloxicam 15 MG Tablet TAKE 1 TABLET BY MOUTH EVERY DAY Oral Medication List reviewed and reconciled with the patient * Allergies: N o Known Drug Allergyno[Allergies Verified] Objective: * Vitals: H t: 71, Wt: 174, BMI:24.27, BP: 134/76, HR: 63, Temp: 97.6, Oxygen sat %: 97, Wt- k.93. * P ast Orders: Lab:Complete Blood Count Aut o Diff * Collection Date 12/01/2024 07/05/2024 11/26/2023 Collection Time 07:06 AM 07:09 AM 07:40 AM Order Date 12/01/2024 07/05/2024 11/26/2023 White Blood Count 4.9 (Ref Range: 4.8-10.8 X10*3/uL) 6.0 (Ref Range: 4.8-10.8 X10*3/uL) 4.0 L (Ref Range: 4.8-10.8 X10*3/uL) Red Blood Count 5.31 (Ref Range: 4.60-5.80 X10*6/uL) 5.18 (Ref Range: 4.60-5.80 X10*6/uL) 5.12 (Ref Range: 4.60-5.80 X10*6/uL) Hemoglobin 16.1 (Ref Range: 14.0-18.0 g/dl) 15.7 (Ref Range: 14.0-18.0 g/dl) 15.8 (Ref Range: 14.0-18.0 g/dl) Hematocrit 46.4 (Ref Range: 42.0-52.0 %) 44.8 (Ref Range: 42.0-52.0 %) 45.7 (Ref Range: 42.0-52.0 %) Mean Corpuscular Volume 87.4 (Ref Range: 80.0-98.0 fL) 86.5 (Ref Range: 80.0-98.0 fL) 89.3 (Ref Range: 80.0-98.0 fL) Mean Corpuscular Hemoglobin 30.3 (Ref Range: 27.0-33.0 pg) 30.3 (Ref Range: 27.0-33.0 pg) 30.9 (Ref Range: 27.0-33.0 pg) Mean Corpuscular HGB Conc 34.7 (Ref Range: 31.0-36.0 g/dl) 35.0 (Ref Range: 31.0-36.0 g/dl) 34.6 (Ref Range: 31.0-36.0 g/dl) Red Cell Distribution Width 12.3 (Ref Range: 11.0-16.0 %) 12.2 (Ref Range: 11.0-16.0 %) 12.4 (Ref Range: 11.0-16.0 %) Platelet Count 257 (Ref Range: 160-400 X10*3/uL) 293 (Ref Range: 160-400 X10*3/uL) 253 (Ref Range: 160-400 X10*3/uL) Mean Platelet Volume 9.4 (Ref Range: 9.4-12.4 fL) 9.9 (Ref Range: 9.4-12.4 fL) 9.5 (Ref Range: 9.4-12.4 fL) Neutrophils Percent Auto 47.3 (Ref Range: 45-73 %) 59.8 (Ref Range: 45-73 %) 42.5 L (Ref Range: 45-73 %) Imm Gran Pct Auto 0.2 (Ref Range: 0.0-0.4 %) 0.2 (Ref Range: 0.0-0.4 %) 0.0 (Ref Range: 0.0-0.4 %) Lymphocytes Percent Auto 36.1 (Ref Range: 20-40 %) 24.6 (Ref Range: 20-40 %) 38.4 (Ref Range: 20-40 %) Monocytes Percent Auto 9.5 (Ref Range: 2-11 %) 10.6 (Ref Range: 2-11 %) 13.2 H (Ref Range: 2-11 %) Eosinophils Percent Auto 5.7 H (Ref Range: 0-4 %) 4.0 (Ref Range: 0-4 %) 4.7 H (Ref Range: 0-4 %) Basophils Percent Auto 1.2 (Ref Range: 0-2 %) 0.8 (Ref Range: 0-2 %) 1.2 (Ref Range: 0-2 %) NRBC Pct Auto 0.0 (Ref Range: 0.0-0.2 /100WBC) 0.0 (Ref Range: 0.0-0.2 /100WBC) 0.0 (Ref Range: 0.0-0.2 /100WBC) Neutrophils Absolute Auto 2.3 (Ref Range: 2.0-8.3 x10*3/uL) 3.6 (Ref Range: 2.0-8.3 x10*3/uL) 1.7 L (Ref Range: 2.0-8.3 x10*3/uL) Imm Gran Abs Auto 0.01 (Ref Range: 0.00-0.03 X10*3/uL) 0.01 (Ref Range: 0.00-0.03 X10*3/uL) 0.00 (Ref Range: 0.00-0.03 X10*3/uL) Lymphocytes Absolute Auto 1.8 (Ref Range: 1.2-4.9 X10*3/uL) 1.5 (Ref Range: 1.2-4.9 X10*3/uL) 1.5 (Ref Range: 1.2-4.9 X10*3/uL) Monocytes Absolute Auto 0.5 (Ref Range: 0.1-1.2 X10*3/uL) 0.6 (Ref Range: 0.1-1.2 X10*3/uL) 0.5 (Ref Range: 0.1-1.2 X10*3/uL) Eosinophils Absolute Auto 0.3 (Ref Range: 0.0-0.4 X10*3/uL) 0.2 (Ref Range: 0.0-0.4 X10*3/uL) 0.2 (Ref Range: 0.0-0.4 X10*3/uL) Basophils Absolute Auto 0.1 (Ref Range: 0.0-0.2 X10*3/uL) 0.1 (Ref Range: 0.0-0.2 X10*3/uL) 0.1 (Ref Range: 0.0-0.2 X10*3/uL) NRBC Abs Auto 0.000 (Ref Range: 0.0-0.012 X10*3/uL) 0.000 (Ref Range: 0.0-0.012 X10*3/uL) 0.000 (Ref Range: 0.0-0.012 X10*3/uL) * Lab:[facility]armelo Lakhani. Galo l Fast * Collection Date 12/01/2024 07/05/2024 11/26/2023 Collection Time 07:06 AM 07:09 AM 07:40 AM Order Date 12/01/2024 07/05/2024 11/26/2023 Sodium 141 (Ref Range: 135-145 mmol/L) 140 (Ref Range: 135-145 mmol/L) 140 (Ref Range: 135-145 mmol/L) Bilirubin Total 0.6 (Ref Range: 0.0-1.0 mg/dL) 0.5 (Ref Range: 0.0-1.0 mg/dL) 0.7 (Ref Range: 0.0-1.0 mg/dL) Aspartate Amino Transferase 25 (Ref Range: 5-37 U/L) 47 H (Ref Range: 5-37 U/L) 25 (Ref Range: 5-37 U/L) Alanine Aminotransferase 38 (Ref Range: 0-40 U/L) 40 (Ref Range: 0-40 U/L) 30 (Ref Range: 0-40 U/L) Total Protein 6.9 (Ref Range: 6.5-8.0 g/dL) 7.2 (Ref Range: 6.5-8.0 g/dL) 7.0 (Ref Range: 6.5-8.0 g/dL) Albumin Level 4.5 (Ref Range: 3.5-5.0 g/dL) 4.4 (Ref Range: 3.5-5.0 g/dL) 4.2 (Ref Range: 3.5-5.0 g/dL) Alkaline Phosphatase 90 (Ref Range: 39-117 U/L) 91 (Ref Range: 39-117 U/L) 82 (Ref Range: 39-117 U/L) Potassium 3.9 (Ref Range: 3.3-5.1 mmol/L) 3.7 (Ref Range: 3.3-5.1 mmol/L) 4.7 (Ref Range: 3.3-5.1 mmol/L) Chloride 105 (Ref Range: 96-108 mmol/L) 106 (Ref Range: 96-108 mmol/L) 105 (Ref Range: 96-108 mmol/L) Carbon Dioxide 27 (Ref Range: 22-29 mmol/L) 26 (Ref Range: 22-29 mmol/L) 26 (Ref Range: 22-29 mmol/L) Anion Gap 13 (Ref Range: 12-20) 12 (Ref Range: 12-20) 14 (Ref Range: 12-20) Blood Urea Nitrogen 16 (Ref Range: 9-16 mg/dL) 17 H (Ref Range: 9-16 mg/dL) 19 H (Ref Range: 9-16 mg/dL) Creatinine 0.75 (Ref Range: 0.5-1.4 mg/dL) 0.74 (Ref Range: 0.5-1.4 mg/dL) 0.77 (Ref Range: 0.5-1.4 mg/dL) Estimated Glomerular Filt Rate > 60 > 60 > 60 Glucose Fasting 66 (Ref Range: 60-99 mg/dL) 67 (Ref Range: 60-99 mg/dL) 138 H (Ref Range: 60-99 mg/dL) Calcium 9.5 (Ref Range: 8.4-10.2 mg/dL) 9.5 (Ref Range: 8.4-10.2 mg/dL) 9.4 (Ref Range: 8.4-10.2 mg/dL) * Lab:Lipid Panel * Collection Date 12/01/2024 07/05/2024 11/26/2023 Collection Time 07:06 AM 07:09 AM 07:40 AM Order Date 12/01/2024 07/05/2024 11/26/2023 Triglycerides 47 (Ref Range: <150 mg/dL) 45 (Ref Range: <150 mg/dL) 41 (Ref Range: <150 mg/dL) Cholesterol 223 H (Ref Range: <200 mg/dL) 231 H (Ref Range: <200 mg/dL) 223 H (Ref Range: <200 mg/dL) LDL Cholesterol Calculated 120 H (Ref Range: <100 mg/dL) 120 H (Ref Range: <100 mg/dL) 114 H (Ref Range: <100 mg/dL) HDL Cholesterol 94 (Ref Range: >40 mg/dL) 102 (Ref Range: >40 mg/dL) 101 (Ref Range: >40 mg/dL) * Lab:Hemoglobin A1c * Collection Date 12/01/2024 07/05/2024 11/26/2023 Collection Time 07:06 AM 07:09 AM 07:40 AM Order Date 12/01/2024 07/05/2024 11/26/2023 Hemoglobin A1c % 9.5 H (Ref Range: <6.0 %) 9.3 H (Ref Range: <6.0 %) 9.2 H (Ref Range: <6.0 %) Estimated Average Glucose 226 (Ref Range: mg/dL) 220 (Ref Range: mg/dL) 217 (Ref Range: mg/dL) ???Imaging:XR chest 2V (Order Date - 12/02/2024) (Performed Date - 12/02/2024) * Examination: G eneral Examination: GENERAL APPEARANCE: p leasant, well nourished, well developed, in no acute distress, calm and relaxed, man. HEAD: a traumatic, normocephalic. EYES: e [...] mass. RECTAL EXAM: n ot examined. MUSCULOSKELETAL: significant changes of osteoarthritis of the joints of all 10 fingers and hands.. PERIPHERAL PULSES: n ormal. NEUROLOGIC: a lert and oriented, cranial nerves 2-12 grossly intact, deep tendon reflexes 2+ symmetrical, motor strength normal upper and lower extremities, sensory exam intact. PSYCH: a lert, oriented. Assessment: * Assessment: 1. C hest pain, unspecified type - R07.9 (Primary) N otes :A chest x-ray has been ordered to evaluate his atypical chest pain. 2 . S hortness of breath - R06.02 N otes :His oxygen saturation is normal. I have ordered chest x-ray. Quite comfortable 3 . T ype 2 diabetes mellitus without complications - E11.9 N otes :For the first time today he has been willing to consider more modern therapy for controlling of insulin-dependent diabetes such as a sensor and basal insulin. I have referred him to endocrinology to make this happen. I have been unsuccessful in managing his diabetes. His most recent A1c is 9.5. I have increased his SEMGLEE by 10 units. 4 . L luis eduardo term (current) use of insulin - Z79.4 N otes :We have discussed how to adjust his insulin depending upon his testing. 5 . P rimary osteoarthritis, right hand - M19.041 N otes :He will continue with the process improvement analyst. 6 . P rimary osteoarthritis, left hand - M19.042 N otes :He will continue with the process improvement analyst. He is able to conduct all of the activities of daily living. 7 . B enign prostatic hyperplasia, unspecified whether lower urinary tract symptoms present - N40.0 N otes :He says he arises from sleep once or twice a night to urinate. I have discussed with him lifestyle modifications that could help reduce nocturia. Plan: * Treatment: 2. S hortness of breath L AB: Testosterone, Total I maging: XR CHEST 2 VIEW PA & LAT 3. B enign prostatic hyperplasia, unspecified whether lower urinary tract symptoms present L AB: Testosterone, Total 4. O thers Continue Semglee (yfgn) Solution Pen-injector, 100 UNIT/ML, 38 units once a day, Subcutaneous, once a day; C ontinue BD Pen Needle Ainsley U/F Miscellaneous, 32G X 4 MM, as directed, use as directed, test once a day; C ontinue Accu-Chek Asya Plus Strip, -, as directed, In Vitro, test once a day; C ontinue Pen Athens Miscellaneous, 29G X 12MM, as directed, use as directed, use once a day. * Procedure Codes: 9 4760 MEASURE BLOOD OXYGEN LEVEL * Preventive Medicine: DM Care Plan: P atient Lifestyle Goals P atient wants to be able to manage diabetes without too much effort. T reatment Goals H bA1C < 7.0, Blood Sugars less than < 115. B arriers n o barriers. S elf-Managment Goals W ork on weight loss, with a goal of losing 1 lb per week. * Follow Up: 3 weeks (Reason: ov review testoterone level and CXR done at ) * Images: * Sign off status: Completed true * Provider: Carolyne Funez MD Date: 0 12/01/2024 Generated for Rodríguez jorgensen/Chris/Carlos on: 06/25/2024 10:34 AM EST History and Physical Notes * HPI (History of Present Illness) Category Sub-Category Detail Notes COVID-19 Screening Questions Have you had any new onset fever, chills, cough, congestion, sore throat, shortness of breath, muscle aches?: No Examination Category Sub-Category Detail Notes General Examination GENERAL APPEARANCE: pleasant , well nourished, well developed, in no acute distress, calm and relaxed, man HEAD: atraumatic, normocep halic EYES: eomi, [...] BREASTS: no masses palpable b ilaterally MUSCULOSKELETAL: significant changes of osteoarthritis of the joints of all 10 fingers and hands. LYMPH NODES: no enlarged lymph no roberto carlos,spleen normal RECTAL EXAM: not examined PSYCH: alert, oriented ORAL CAVITY: normal, unremarkable
--- OUTSIDE RECORDS SUMMARY | 2024-12-26 11:45 | XMS_ITS ---
Author Organization Gary Funez III, MD Address [address] [place] [address] [place] [address] Care Team Providers Care Transfer Table Operator Name Role Phone Dr. Gary Funez III Primary Care Provider REASON FOR VISIT Follow up Social History Sex Assigned At : Social History Observation Description Sex Assigned At Male Encounters Encounter Location Date Provider Diagnosis Gary Funez III, MD [address] [place] [address] [address] [place] [address] 12/26/2024 Gary Funez Plan Of Treatment Next Appt Details Provider Name:Gary Funez , 07/10/2025 09:30:00 AM, [address] [place] [address] [place], [address], Progress Notes * Lazaro ROBERTS CDOB: 1 (55 yo M)Acc No.[id number]:12/26/2024 Progress Notes Patient: Bonifacio COLEY Lazaro Amaral Provider: Carolyne Funez MD :1970 A ge:54 Y S ex:Male Date:12/26/2024 Address:[address] [place], [place] [id number] Subjective: * Chief Complaints: * 1 . Follow up. * Medical History: Objective: * Vitals: Assessment: Plan: * Treatment: * Images: * The named appointment provid er may or may not be the originator of this progress note, and it is not deemed complete until electronically signed by the appointment provider. Sign off status: Pending * Provider: Carolyne uFnez MD Date: 0 12/26/2024 Generated for Rodríguez jorgensen/Chris/Carlos on: 1 06/25/2024 10:32 AM EST
--- OUTSIDE RECORDS SUMMARY | 2025-04-17 04:45 | XMS_ITS ---
Author Organization Gary Funez III, MD Address [address] [place] [address] Care Team Providers Care Manufacturing Engineering Technician Name Role Phone Dr. Gary Funez III Primary Care Provider [phone] REASON FOR VISIT Refill Medications Medication SIG (Take, Route, Frequency, Duration) Notes Start Date End Date Status Pen [place] 29G X 12MM Once a day for 90 days E11.9 Type 2 diabetes mellitus 01/30/2015 Active Semglee (yfgn) 100 UNIT/ML 38 units once a day Subcutaneous once a day for 90 days E11.9 Type 2 diabetes mellitus 11/29/2024 Active Social History Sex Assigned At : Social History Observation Description Sex Assigned At Male Encounters Encounter Location Date Provider Diagnosis Gary Funez III, MD [address] [place] [address] [place] [address] 04/17/2025 Gary Funez Plan Of Treatment Medication Medication Name Sig Start Date Stop Date Notes Pen [place] 29G X 12MM Once a day for 90 days 01/30/2015 E11.9 Type 2 diabetes mellitus Semglee (yfgn) 100 UNIT/ML 38 units once a day Subcutaneous once a day for 90 days 11/29/2024 E11.9 Type 2 diabetes mellitus Next Appt Details Provider Name:Gary Funez , 07/10/2025 09:30:00 AM, [address] [place] [address] [place], [address], Progress Notes * Lazaro ROBERTS CDOB: 1 (55 yo M)Acc No.[id number]:04/17/2025 Patient: Lazaro BRUNO :1970 A ge:55 Y S ex:Male Address:[address] [place] [address], [place] [address] * Refills Refill Semglee (yfgn) Solution Pen-injector, 100 UNIT/ML, Subcutaneous, 36 Pre-filled Pen Syringe, 38 units once a day, once a day, 90 days, Refills=3 Refill Pen [place] Miscellaneous, 29G X 12MM, 90, Once a day, 90 days, Refills=3 * true * Date: Generated for Rodríguez jorgensen/Chris/Alexitting on: 06/25/2024 10:33 AM EST
--- NOTE | 2025-04-25 09:34 | MHC.OFFVIS ---
Vital Signs 04/25/25 09:35 Height 6 ft 1 in Weight 175 lb 7.807 oz BMI 23.2 Intake Visit Reasons: T2DM Intake Note: Patient present today for T2DM follow up. Last Diabetic Eye exam: August 2024, [facility] Last Podiatry Visit: Does not see a Airframe And Power Plant Mechanic Random Glucose:213 mg/dl HgA1C: Patient can no longer take atorvastatin. Validation Consultant Required: No Accompanied by: Self / Same As Patient Allergies atorvastatin Adverse Reaction (Mild, Verified 04/25/25 09:37) body aches Medication List - Last Reconciled 04/25/25 by Gary Jean MD atorvastatin (Lipitor) 10 mg PO DAILY blood sugar diagnostic As directed blood-glucose meter (Accu-Chek Guide Glucose Meter) As directed blood-glucose sensor (Algorithmia Vicente 3 Plus Sensor device) As directed change every 15 days glucagon (Glucagon Emergency Kit) 1 mg subcut Q20M PRN insulin glargine-yfgn (Semglee (insulin glargine-yfgn) Pen) 37 units subcut QAM multivitamin 1 tab PO DAILY HPI Comments Details: 55 YO M who is seen in consultation for T2DM at the request of PCP. Initially diagnosed with DM at age 36 [address] Valdivia yrs Was initially started on treatment with metformin . Current regimen Semglee 37 units . Vicente download shows active 64% of time. Avg glucose is 201 with GMI of 8.1 and variability of 39.6. Target 39% with 68% hyperglycemia and 3 % hypoglycemia. Lows are overnight and hyperglycemia after meals. Patent also shows declining blood sugars overnight with hypoglycemia Treats lows with eats something . Not Checks sugar after to ensure it is rising. [Treats] according to rule of 15's. Most recent A1C 9.5 on 12/01/24 No Family history of T2DM Has eyes checked yearly, last eye exam August 2024 , denies retinopathy. Denies neuropathy, not , sees podiatry. Denies nephropathy, on LANE/ARB. Has HLD,Not on statin. Last LDL [] as measured on []. Denies CAD. Had diabetes education not recently . . Did not go for any blood testing for type 1 diabetes antibodies [facility] Medical History (Updated 04/25/25 @ 10:17 by Gary Jean MD) Hyperlipidemia Uncontrolled type 2 diabetes mellitus with hyperglycemia Elevated cholesterol Right inguinal hernia Arthritis Diabetes Surgical History History of right inguinal hernia repair (~04/17/23) H/O colonoscopy History of dental surgery Family History Mother Bladder cancer Father Pancreatic cancer Social History Are you a primary healthcare prof to a significant other at home: No Do you presently have visiting nurse or other home services: No Patient Tobacco Use Status: Never used Tobacco Physical Exam Vital Signs: BMI result Body Mass Index 23.2 Absence of Cushingoid features. Absence of acromegalic features. Neck exam reveals nl size thyroid about 15 gms. No thyroid nodules palpable. No carotid bruits present. Lungs CTA. Heart S1 S2, Reg R/R. No M/R/ G. Skin exam reveals absence of vitiligo or acanthosis nigricans. Abdominal exam reveals Soft NT/ND with NA BS. No organomegaly present. Neck Other: . Extrem Other: Visual exam of foot performed. No ulcerations or open lesions. No onchomycosis, no callouses.Pulses 2 + distally Sensation intact to monofilament exam. Vibratory sensation sensed is intact with 128 Hz tuning fork Results AMB Hemoglobin A1c AMB Hemoglobin A1c 8.7 % Last Edit by Ada Saenz CMA on 04/25/25 09:54 Results Reviewed Results Reviewed: Laboratory Last Values Glucose (Clinic) 213 mg/dL (60-115) H 04/25/25 09:42 Hgb A1c (Clinic) 8.7 % (4.0-6.0) H 04/25/25 09:47 Assessment & Plan Assessment & Plan (1) Uncontrolled type 2 diabetes mellitus with hyperglycemia: Code(s): E11.65 - Type 2 diabetes mellitus with hyperglycemia Category: Medical Plan: This is a 54-year-old white male with a history of diabetes ? TYpe 1 vs Type 2 currently on basal insulin with poor glycemic control and no known microvascular or macrovascular complications. Plan is to decrease the Semglee to 30 units and further if continued overnight hypoglycemia. We will also initiate Humalog 5 units before meals. We will send the patient to inclusion special educator. We will also check anti-cady 65 antibodies and C-peptide today to distinguish type 1 from type 2 diabetes. Assuming patient has type 1 diabetes would be a very good candidate for an insulin pump either an Omnipod 5 or ilet (2) Hyperlipidemia: Code(s): E78.5 - Hyperlipidemia, unspecified Category: Medical Plan: Attempted to take 10 mg of atorvastatin but had muscle aches. We will switch atorvastatin to rosuvastatin 10 mg and recheck lipid profile in 6 weeks if patient tolerates Orders: Orders AMB Hemoglobin A1c Today E11.65 - Type 2 diabetes mellitus with hyperglycemia Medications: New Crestor (rosuvastatin) 10 mg PO DAILY 30 tabs 4RF NS insulin lispro (Humalog KwikPen (U-100) Insulin) 5 units (0.05 mL) subcut TID 15 mL 4RF Discontinued atorvastatin (Lipitor) Discontinued Reason: Doctor's Order 10 mg PO DAILY 30 tabs 4RF Coding Level of Care Code Est Pt Level 4 (14715) Complex EM visit Add On G2211 Diagnoses Uncontrolled type 2 diabetes mellitus with hyperglycemia E11.65 Hyperlipidemia E78.5
[2025-04-25 09:35] VITALS: BMI 23.2
[2025-04-25 09:50] LABS: Glucose, Whole Blood 213 mg/dL (60-115)
--- OUTSIDE RECORDS SUMMARY | 2025-04-25 10:32 | XMS_ITS | Patient Health Record ---
Author Organization Gary Funez III, MD Address [address] [place] [address] [place] [address] Care Team Providers Care Renovator Machine Operator Name Role Phone Dr. Gary Funez III Primary Care Provider Allergies Allergen (clinical drug ingredient) Drug/Non Drug Allergy documented on EMR Reaction Allergy Type Onset Date Status No Known Drug Allergy Unknown Drug Allergy Active Results Component Value Reference Range Notes Complete Blood Count Auto Di ff Reviewed date:07/07/2024 01:26:26 PM Interpretation: Performing Lab:[facility], [address] [place] [phone] Notes/Report: White Blood Count 6.0 4.8-10.8 X10*3/uL [...] NRBC Abs Auto 0.000 0.0-0.012 X10*3/uL Comprehensive [place]. Panel Fa st Reviewed date:07/07/2024 01:26:26 PM Interpretation: Performing Lab:[address] [address] Notes/Report: Sodium 140 135-145 mmol/L Potassium 3.7 [...] Panel Reviewed date:07/07/2024 01:26:26 PM Interpretation: Performing Lab:[facility], [address] [place] [phone] Notes/Report: Triglycerides 45 <150 mg/dL Desirable Triglyceride: [...] Random Reviewed date:07/07/2024 01:26:26 PM Interpretation: Performing Lab:[address] [address] Notes/Report: Creatinine Urine 93.87 Microalbumin Urine 23.0 Microalbum/Creatinine Ratio Ur 24.5 <30 ug/mg cr Albumin/Creatinine Ratio Reference Ranges: Normal: < 30 ug/mg creatinine Microalbuminuria: 30 - 300 ug/mg creatinine Clinical Albuminuria: > 300 ug/mg creatinine Hemoglobin A1c Reviewed date:07/07/2024 01:26:26 PM Interpretation: Performing Lab:[address] [phone] Notes/Report: Hemoglobin A1c % 9.3 <6.0 % [...] average glucose, using the formula of the M7I-Wjripol Average Glucose study (ADAG), Diabetes Care, Vol.31,#8, Jan. 2007 Complete Blood Count Auto Di ff Reviewed date:12/01/2024 09:26:09 AM Interpretation: Performing Lab:[facility], [address] [place] [phone] Notes/Report: White Blood Count 4.9 4.8-10.8 X10*3/uL [...] NRBC Abs Auto 0.000 0.0-0.012 X10*3/uL Comprehensive [place]. Panel Fa st Reviewed date:12/01/2024 09:26:09 AM Interpretation: Performing Lab:[facility], [address] [place] [phone] Notes/Report: Sodium 141 135-145 mmol/L Potassium 3.9 [...] Panel Reviewed date:12/01/2024 09:26:09 AM Interpretation: Performing Lab:[address] [address] Notes/Report: Triglycerides 47 <150 mg/dL Desirable Triglyceride: [...] A1c Reviewed date:12/01/2024 09:26:09 AM Interpretation: Performing Lab:[facility], [address] [place] [phone] Notes/Report: Hemoglobin A1c % 9.5 <6.0 % [...] average glucose, using the formula of the L1I-Qduydwb Average Glucose study (ADAG), Diabetes Care, Vol.31,#8, Jan. 2007 XR chest 2V Reviewed date:12/04/2024 05:14:52 PM Interpretation: Performing Lab: Notes/Report: [address] [address] XRay Report Signed Patient: Lazaro Roberts MR#: [id number] 08 : 1970 Acct:[id number] Age/Sex: 54 / M ADM Date: 12/01/24 Loc: HO.LAB Attending Dr: Gary Funez MD Ordering Physician: Gary Funez MD Date of Service: 12/01/24 Procedure(s): XR chest 2V Accession Number(s): [id number] cc: Gary Funez MD CLINICAL HISTORY: CHEST [...] in OV> 12/02/24902 DD/ 0 TD/TT: 12/02/24900 Flexographic Press Helper: [address] [address] XRay Report Signed Patient: Yael Roberts MR#: [id number] [birth year] : 1970 Acct:[id number] Age/Sex: 54 / M ADM Date: 12/01/24 Loc: HO.LAB Attending Dr: Gary Funez MD Ordering Physician: Gary Funez MD Date of Service: 12/01/24 Procedure(s): XR sara st 2V Accession Number(s): [id number] cc: Gary Funez MD CLINICAL HISTORY: CHEST [...] in OV> 12/02/24902 DD/ 0 TD/TT: 12/02/24900 Flexographic Press Helper: Glucose, Whole Blood Reviewed date:02/06/2025 01:40:16 PM Interpretation: Performing Lab:[facility], [address] [place] [phone] Notes/Report: Glucose, Whole Blood 217 60-115 mg/dL METER #: [id number] Testing performed in the Endocrinology Department and [facility] [place] [facility], [facility]. Reason For Referral Reason diabetes eye care Diagnosis 1 Type 2 diabetes pepe itus without complications (E11.9) Diagnosis 2 USP (current) use of insulin (Z79.4) Referral Organization [...] past for diabetic eye care, Sharmila Anderson HORTICULTURE SUPERINTENDENT 03/05/2023 03:04:52 PM EDT > I called Dr Danielle office made patient appt for Thursday06/29/2024 at 3:20pm information mailed to pt Referral Priority Routine Referral Appointment Date 06/29/2024 Reason Evaluate and Treat Optimize diabetic regimen Diagnosis 1 Type 2 diabetes pepe itus without complications (E11.9) Diagnosis 2 USP (current) use of insulin (Z79.4) Referral Organization Gary Funez III, MD Referring Provider First Name Gary Referring Provider Last Name Armin Referring Provider Speciality Internal edicine Referred Provider [facility] er, Endocrinology & [facility] Center Referred Provider Specialty Endocrinolog y General Notes Carlita Paul 07/25/2024 01:51:04 PM > Referral faxed with progress note, Carlita Paul 09/27/2024 04:08:59 PM > Office stated they did not receive the referral. Referral refaxed, Carlita Paul 11/16/2024 11:22:22 AM > Spoke with Hilaria at [facility] Endocrinology stated they have not received the referral. Fax number was confirmed and refaxrichie Carlita Paul 11/21/2024 02:52:59 PM > Spoke with Hilaria at [facility] Endocrinology they have received the referral but need the completed progress note done form 07/08/2024 signed and faxed to [phone] ATTN; Humberto Manrique, Carlita 11/24/2024 03:02:27 PM > Progress note was faxed to [facility] Endocrinology & Diabetic Center, ATTN: Humberto Manrique Amber 12/21/2024 01:53:28 PM > Spoke with Hilaria at [facility] Endocrinology she stated they have the referral and progress note. They have reached out to the patient 2x and no call back from the patient. Patient was contacted and left a message providing [facility] Endocrinology and diabetes center number to call and schedule an appointment with their office as soon as possible. Referral Priority Routine Referral Appointment Date 02/06/2025 Medications Medication SIG (Take, Route, Frequency, Duration) Notes Start Date End Date Status Pen [place] 29G X 12MM Once a day for 90 days E11.9 Type 2 diabetes mellitus 01/30/2015 Active BD Pen Needle Ainsley U/F 32G X 4 MM as directed use as directed test once a day 08/22/2016 Active Semglee (yfgn) 100 UNIT/ML 38 units once a day Subcutaneous once a day for 90 days E11.9 Type 2 diabetes mellitus 11/29/2024 Active Accu-Chek Asya Plus - as directed In Vitro test once a day 08/22/2016 Active Social [...] Problem Status W/U Status Risk Notes Problem 065571885 Overweight (E66.3) Active confirmed He is very slightly overweight. We have discussed the effect of this on glycemic control. I recommended he stabilize his weight at this level and gradually redduce it with a target BMI of 23. Problem 95046509 Type 2 diabetes mellitus without complications (E11.9) [...] increased his SEMGLEE by 10 units. Problem 337019465 Sebaceous cyst (L72.3) Active confirmed The cyst has been removed and is currently well-healed Problem 878182969061320 Primary osteoarthritis, right hand (M19.041) Active confirmed He will continue with the firestopper technician . Problem 037281037747809 Primary osteoarthritis, left hand (M19.042) Active confirmed He will continue with the firestopper technician . He is able to conduct all of the activities of daily living. Problem 765559804 Shortness of breath (R06.02) Active confirmed His oxygen saturation is normal. I have ordered chest x-ray. Quite comfortable Problem 381558596 emt intermediate (current) use of insulin (Z79.4) Active confirmed We have discussed how to adjust his insulin depending upon his testing. Problem 52083624 Chest pain, unspecified type (R07.9) Active confirmed A chest x-ray has been ordered to evaluate his atypical chest pain. Problem 129814936 Benign prostatic hyperplasia, unspecified whether lower urinary [...] Date Provider Diagnosis Gary Funez III, MD [address] [place] [address] [address] [place], [place] [address] 07/08/2024 Gary Funez Type 2 diabetes mellitus without complications E11.9 ; emt intermediate (current) use of insulin Z79.4 ; Primary osteoarthritis, right hand M19.041 ; Primary osteoarthritis, left hand M19.042 and Benign prostatic hyperplasia, unspecified whether lower urinary tract symptoms present N40.0 Gary Funez III, MD [address] [place] [address] [place] [address] 12/01/2024 Gary Funez Chest pain, unspecif ied type R07.9 ; Shortness of breath R06.02 ; Type 2 diabetes mellitus without complications E11.9 ; emt intermediate (current) use of insulin Z79.4 ; Primary osteoarthritis, right hand M19.041 ; Primary osteoarthritis, left hand M19.042 and Benign prostatic hyperplasia, unspecified whether lower urinary tract symptoms present N40.0 Gary Funez III, MD [address] [place] [address] [place] [address] 07/22/2024 Gary Funez III, MD [address] [place] [address] [place] [phone] 08/31/2024 Gary Funez III, MD [address] [place] [address] [place] [address] 11/29/2024 Gary Funez III, MD [address] [place] [address] [place] [address] 04/17/2025 Gary Funez Assessments Encounter Date Diagnosis (ICD [...] His most recent A1c is 9.3. 07/08/2024 emt intermediate (current) use of insulin (ICD-10 - [...] - M19.041) He will continue with the firestopper technician. 12/01/2024 Type 2 diabetes mellitus without complications [...] - M19.042) He will continue with the firestopper technician. He is able to conduct all of the activities of daily living. 12/01/2024 emt intermediate (current) use of insulin (ICD-10 - [...] - M19.041) He will continue with the firestopper technician. 12/01/2024 Primary osteoarthritis, left hand (ICD-10 - M19.042) He will continue with the firestopper technician. He is able to conduct all of [...] (COMPREHENSIVE METABOLI C) 02/16/2023 HEMOGLOBIN A1C (GLYCOHEMOGLOBIN) 023 HEMOGLOBIN A1C (GLYCOHEMOGLOBIN) 021 HEMOGLOBIN A1C (GLYCOHEMOGLOBIN) 022 HEMOGLOBIN A1C (GLYCOHEMOGLOBIN) 024 HEMOGLOBIN A1C (GLYCOHEMOGLOBIN) 021 LIPID PANEL 01/07/2021 [...] CBC WITH AUTO DIFF 07/08/2024 Lipid Panel 11/18/2023 Lipid Panel 07/22/2023 Lipid Panel 07/08/2024 Testosterone, Total 12/01/2024 Hemoglobin A1c 07/08/2024 Hemoglobin A1c 11/18/2023 Next Appt Details Provider Name:Gary Brunnerne , 07/10/2025 09:30:00 AM, [address] [place] [address] J[address]YER, [place], [address], Insurance Providers Payer Name Payer Address Payer Phone Subscriber Number Group Number Insured Name Patient Relationship to Insured Coverage Start Date Coverage End Date [facility] [address] [place], [place] [id number] 60Rossana Briones Spouse - patient is the spouse of the insured Medical (General) History Medical History History ICD Code type II diabetes 2021 [facility] tubular adenoma 2023 hernia repair Surgical History Surgery Date(Month/Year) Hernia repair by Dr Peterson 07/2023 colonoscopy, [facility], Beth, one tubular nestor noma 07/15/2021
--- OUTSIDE RECORDS SUMMARY | 2025-04-25 10:32 | XMS_ITS | Patient Health Record ---
Author Organization [facility] Address [address] [place] [address] Care Team Providers Care Rn Quality Name Role Phone Gary Funez MD Primary Care Provider Unavailab Gary Zabala Unavailable [phone] Allergies No Known Allergies Reason For Referral No Information Medications Medication SIG (Take, Route, Frequency, Duration) Notes Start Date End Date Status Lantus SoloStar 100 UNIT/ML Subcutaneous; Duration: 30 A ctive Immunizations Vaccine Route Administration Date Status Comme [...] Problem Status W/U Status Risk Notes Problem Screening for malignant neoplasm of colon (657811190) Encounter for screening for malignant neoplasm of colon (Z12.11) Active confirmed Problem Preprocedural examination (250506548419555) Preprocedural examination (Z01.818) Active confirmed Plan Of Treatment Future Test Test Name Order Date COLONOSCOPY 06/12/2021 Insurance Providers Payer Name Payer Address Payer Phone Subscriber Number Group Number Insured Name Patient Relationship to Insured Coverage Start Date Coverage End Date HMO [employer] CLAIMS [address] [place] [address] [id number] IRIS ROBERTS Self - patient is the insured Medical (General) History Medical History History ICD Code IDDM Denies [place],CVA,Lung disease,renal disease Surgical History Surgery Date(Month/Year)
--- OUTSIDE RECORDS SUMMARY | 2025-04-25 10:33 | XMS_ITS | Clinical Summary ---
Author Organization [facility] Address [address] [place] [id number] Phone Care Team Providers Care Inside Sales Trainer Name Role Phone Gary Funez MD Primary Care Provider [phone]- [phone] Allergies No known active allergies Medications LANTUS [...] 2021 ZOSTER VACCINES (1 of 2) 2021 INFLUENZA VACCINE (#1) 2025 COVID-19 VACCINE (3 - 2024-2 6 season) 2025 09/21/2020, 08/31/2020 Adult Td,Tdap Booster 06/12/2031 06/12/2021 RSV VACCINE (1 - 1-dose 75+ series) 2046 SMOKING STATUS SCREENING (On ce After 26 [...] topic Medical Devices Not on file Insurance [facility] HMO POS [facility] [place] [address] [place] [address] HMO POS [facility] POS [facility] POS [facility] HMO POS [facility] HMO POS [place] [address] [place] [address] HMO POS Care Teams Inside Sales Trainer Relationship Specialty Start Date End Date Gary Funez MD [address] [place] [address] Dr RiveraKennedy, [place] PCP - General Medical Oncology 04/23/20 Additional Source Comments The information contained in this document represents components of the legal health record. It is not the complete legal health record.[facility]
== END 2025-04-25 10:13 | disposition home or self-care (01) ==
LOC: HO.ENCR 09:29
PROVIDERS: PCP Internal Medicine Medical Oncology; Visit Provider Internal Medicine Endocrinology, Diabetes & Metabolism
DX: E11.65 Type 2 diabetes mellitus with hyperglycemia (principal); E78.5 Hyperlipidemia, unspecified
CPT/HCPCS: 99214

== ENCOUNTER → 2025-04-25 09:29 | Outpatient (BNVA) | payer BC, SELFPAY | PROVIDERS: PCP Internal Medicine Medical Oncology; Visit Provider Internal Medicine Endocrinology, Diabetes & Metabolism | DX: E11.65 Type 2 diabetes mellitus with hyperglycemia (principal); E78.5 Hyperlipidemia, unspecified; Z79.4 Long term (current) use of insulin | CPT/HCPCS: 82947; 83036 ==

== ENCOUNTER 2025-04-25 10:22 | Outpatient (REF) | payer BC, SELFPAY ==
[2025-04-25 13:33] LABS: Cholesterol 257 mg/dL (<200); HDL Cholesterol 111 mg/dL (>40); Triglycerides 73 mg/dL (<150)
== END 2025-04-25 10:23 | disposition home or self-care (01) ==
LOC: HO.10HDL 10:22
PROVIDERS: Visit Provider Internal Medicine Endocrinology, Diabetes & Metabolism
DX: Z01.84 Encounter for antibody response examination (principal); E11.65 Type 2 diabetes mellitus with hyperglycemia
CPT/HCPCS: 36415; 80061; 82947; 84681; 86341